=== PATIENT | female | born 1935 | race Caucasian/White ===

== ENCOUNTER 2019-03-19 17:23 | Inpatient (IN) | payer MEDICARE, OTHER, SELFPAY ==
[2019-03-19 17:24] VITALS: BP 135/75; PULSE 61; PULSE 66; RESP 16; TEMP 36.5; O2SAT 96; BMI 25.4
--- NOTE | 2019-03-19 18:28 | EKG12_ITS ---
Test Reason : DIZZINESS Blood Pressure : / mmHG Vent. Rate : 059 BPM Atrial Rate : 059 BPM P-R Int : 176 ms QRS Dur : 080 ms QT Int : 432 ms P-R-T Axes : 028 -14 059 degrees QTc Int : 427 ms Sinus bradycardia with Premature atrial complexes Otherwise normal ECG Confirmed by SHRUTHI MACHADO, GLENIS ([id number]), map editor DI FERGUSON ([id number]) on 03/21/2019 1:20:26 PM Referred By: KIMBERLEY/LINN Confirmed By:TONY HAWKINS MD
--- NOTE | 2019-03-19 18:40 | RAD_ITS ---
STUDY: X-RAY CHEST REASON FOR EXAM: Female, 83 years old. Dizziness TECHNIQUE: PA and lateral views of the chest COMPARISON: X-ray chest November 25, 2014 FINDINGS: The lungs are clear. There are no pleural effusions. There is no pneumothorax. The heart is normal in size. Moderate multilevel osteophytosis is present. RAD/Chest PA and Lateral IMPRESSION: No acute thoracic pathology. Electronically Signed: Felix Villar, at 18:54 EDT Tel , Service support ,
[2019-03-19 18:55] LABS: Absolute Lymphocyte Count 1.46 X10^3/uL (0.83-4.51); Absolute Neutrophil Count 5.7 X10^3/uL (2.0-7.7); Basophil# 0.08 X10^3/uL; Eosinophil# 0.23 X10^3/uL; Eosinophils% 2.8 % (0-5); Hematocrit 38.4 % (37-47); Hemoglobin 12.8 g/dL (12.0-15.0); Lymphocyte # 1.46 X10^3/ul (4.0); Lymphocyte % 17.7 % (19-41); Mean Corp Hgb Conc 33.3 g/dL (32-36); Mean Corpuscular Volume 89.9 fL (81-99); Mean Platelet Vol. 10.1 fl (6.2-12.0); Monocyte# 0.72 X10^3/uL; Monocyte% 8.7 % (0-10); NRBC Flagged by Analyzer 0 % (0-5); Neutrophil # 5.73 X10^3/uL (2.7-7.7); Neutrophil % 69.4 % (47-70); Platelet Count 209 K/mm3 (150-450); RBC Distribution Width CV 13.2 % (11.6-14.6); RBC Distribution Width SD 43.3 fl (35.1-43.9); Red Blood Count 4.27 M/mm3 (4.2-5.4); White Blood Count 8.3 K/mm3 (4.4-11.0)
--- NOTE | 2019-03-19 18:58 | ED.RN ---
NO OLD EKG
[2019-03-19 19:04] LABS: Partial Thromboplast Time 30.5 Seconds (24.1-36.2); Prothrombin Time (Protime)PT. 12.7 SECONDS (11.7-14.9)
[2019-03-19 19:09] LABS: Anion Gap 6 (5-15); BUN 21 mg/dL (7-18); BUN/Creat Ratio 10.8 RATIO (10-20); Calcium,Total 9.1 mg/dL (8.5-10.1); Chloride 111 mmol/L (98-107); Creatinine, Serum 1.95 mg/dL (0.55-1.02); EST Glomerular Filtration Rate 26 mL/min (>60); Est Glom Filt Rate - Afr Amer 32 mL/min (>60); Estimated Creatinine Clearance 17.59 ml/min; Glucose 102 mg/dL (74-106); Potassium 4.3 mmol/L (3.5-5.1); Sodium Level 139 mmol/L (136-145)
--- NOTE | 2019-03-19 20:00 | CT_ITS ---
STUDY: CT BRAIN WITHOUT CONTRAST REASON FOR EXAM: Female, 83 years old. weakness. RADIATION DOSAGE (If Supplied By Facility): CTDIvol = ( 44.99 ) mGy, DLP = ( 779.24 ) mGycm TECHNIQUE: Transaxial CT imaging of the brain was performed without administration of intravenous contrast material. Individualized dose optimization techniques were used for this CT. COMPARISON: 03/16/2017 FINDINGS: Normal soft tissue structures. Normal calvarium. There is mild cerebral atrophy with widening of the extra-axial spaces and ventricular dilatation. There are areas of decreased attenuation within the white matter tracts of the supratentorial brain, consistent with microvascular disease changes. Normal basal ganglia and thalami. Normal brainstem. There is mild cerebellar atrophy. There is no intracranial hemorrhage. There are no findings of an acute ischemic infarction. Normal visualized paranasal sinuses. CT/Brain/Head without Contrast IMPRESSION: No acute abnormality. Mild atrophy and White matter disease. Electronically Signed: Valdemar Lang MD at 20:41 EDT , Service support ,
--- NOTE | 2019-03-19 20:01 | ED.DCSUM_ITS ---
History of Present Illness Chief Complaint: Dizziness Narrative: Patient is an 83-year-old female who presents with dizziness. She describes this as feeling lightheaded and unsteady. She did not really feel off balance although she did have to hold onto things as she was worried she may fall. Symptoms began about 8 hours ago. She does not describe a sensation of room spinning or near syncope. No history of prior similar symptoms. No headaches. No weakness or speech difficulty. She denies any recent illness. No fevers cough chest pain shortness of breath abdominal pain vomiting diarrhea. She is treated for hypertension and has a history of bladder cancer which she is currently not requiring any treatment for. Past Medical History - Allergies and Home Meds Allergies/Adverse Reactions: Allergies No Known Allergies Allergy (Verified 03/16/17 19:39) Primary Care Physician: Kezia Duque MD [Primary Care Provider] - Past Medical History: - - Hypertension Surgical History: arthroscopy, knee - left, hysterectomy, - Smoking Status: Never smoker - Family History Maternal Family History: Reports: Cancer - Her mother of colon cancer Review of Systems All systems negative except as indicated General: Denies: Fever Cardiovascular: Denies: Chest pain Respiratory: Denies: Dyspnea Gastrointestinal: Denies: Nausea, Vomiting, Diarrhea Neurological: Reports: - - Dizziness. Denies: Headache, Weakness, Numbness Physical Exam Vital Signs/Narrative: Vital Signs Temp Pulse Resp BP Pulse Ox 03/19/19 17:24 97.7 F L 61 16 135/75 H 96 Inital Vital Signs reviewed: Yes General: Well nourished, Well developed Head: Normocephalic Eyes: EOMI ENT: Moist mucous membranes Neck: Supple Cardiovascular: Regular rate, Regular rhythm Respiratory: No distress, CTA bilaterally Abdomen: Soft, Nontender Extremities: Nontender Neurological: Alert, Oriented x3, - - NIHSS is 0, no focal or lateralizing neurological deficits normal strength normal sensation Psychological: Normal affect Diagnostic/Tx/Re-eval Impressions Chest X-Ray 03/19/19 18:40 IMPRESSION: No acute thoracic pathology. Electronically Signed: Felix Villar, at 18:54 EDT Tel , Service support , Brain CT 03/19/19 20:00 IMPRESSION: No acute abnormality. Mild atrophy and White matter disease. Electronically Signed: Valdemar Lang MD at 20:41 EDT , Service support , 03/19/19 18:40 Chest PA and Lateral [RAD] Stat 03/19/19 20:00 Brain/Head without Contrast [CT] Stat Laboratory Results 03/19/19 03/19/19 03/19/19 18:44 18:44 18:44 WBC 8.3 RBC 4.27 Hgb 12.8 Hct 38.4 MCV 89.9 MCH 30.0 MCHC 33.3 RDW Std Deviation 43.3 RDW Coeff of Karol 13.2 Plt Count 209 MPV 10.1 Immature Gran % (Auto) 0.400 Neut % (Auto) 69.4 Lymph % (Auto) 17.7 L [place] % (Auto) 8.7 Eos % (Auto) 2.8 Baso % (Auto) 1.0 Absolute Neuts (auto) 5.7 Absolute Lymphs (auto) 1.46 Nucleated RBC % 0 PT 12.7 INR 1.0 APTT 30.5 Sodium 139 Potassium 4.3 Chloride 111 H Carbon Dioxide 22.0 Anion Gap 6 BUN 21 H Creatinine 1.95 H Estim Creat Clear Calc 17.59 Est GFR (MDRD) Af Amer 32 L Est GFR (MDRD) Non-Af 26 L BUN/Creatinine Ratio 10.8 Glucose 102 Calcium 9.1 Troponin I Urine Color Urine Clarity Urine pH Ur Specific [place] Urine Protein Urine Glucose (UA) Urine Ketones Urine Occult Blood Urine Nitrite Urine Bilirubin Urine Urobilinogen Ur Leukocyte Esterase Urine RBC Urine WBC Ur Squamous Epith Cells Urine Bacteria Urine Mucus 03/19/19 03/19/19 18:44 20:40 WBC RBC Hgb Hct MCV MCH MCHC RDW Std Deviation RDW Coeff of Karol Plt Count MPV Immature Gran % (Auto) Neut % (Auto) Lymph % (Auto) [place] % (Auto) Eos % (Auto) Baso % (Auto) Absolute Neuts (auto) Absolute Lymphs (auto) Nucleated RBC % PT INR APTT Sodium Potassium Chloride Carbon Dioxide Anion Gap BUN Creatinine Estim Creat Clear Calc Est GFR (MDRD) Af Amer Est GFR (MDRD) Non-Af BUN/Creatinine Ratio Glucose Calcium Troponin I < 0.015 Urine Color Yellow Urine Clarity Clear Urine pH 6.5 Ur Specific [place] 1.010 Urine Protein Negative Urine Glucose (UA) Normal Urine Ketones Negative Urine Occult Blood 10 H Urine Nitrite Negative Urine Bilirubin Negative Urine Urobilinogen Normal Ur Leukocyte Esterase 500 H Urine RBC 0 SEEN Urine WBC 0-5 SEEN Ur Squamous Epith Cells 0-5 SEEN Urine Bacteria 0 SEEN Urine Mucus 0 SEEN - Medical Decision Making EKG shows sinus bradycardia at a rate of 59 with a PAC. Patient underwent the above work-up including CT of the head, chest x-ray, laboratory studies and urinalysis. This is all unremarkable. Given the patient's new symptoms of dizziness and difficulty with ambulation I do feel she needs to have further neurological work-up likely to include an MRI of the brain. Patient will be discussed with the hospitalist and admitted. ED Disposition - Plan for ED Patient: Disposition: Acute Care Hospital [facility] Diagnosis: Lightheaded, Impaired ambulation Referrals: Kezia Duque MD [Primary Care Provider] -
[2019-03-19 20:08] VITALS: BP 152/98; PULSE 62; RESP 17
[2019-03-19] MEDS: 0.9% Normal Saline 1,000 ML 999 ML IV (20:15)
[2019-03-19 20:47] LABS: Bacteria 0 SEEN /hpf (None Seen); Mucous, Urine 0 SEEN /hpf (<or=2+); Red Blood Cells-Urine 0 SEEN /hpf (0-5)
[2019-03-19 21:14] LABS: Color, Urine Yellow (Yellow); Glucose, Dipstick Normal (Normal); Ketone-Dipstick Negative (Negative); Leukocyte Esterase-Dipstick 500 /ul (Negative); Nitrite-Dipstick Negative (Negative); Occult Blood-Urine 10 /ul (Negative); Protein-Dipstick Negative (Negative); Urine Bilirubin Dipstick Negative (Negative); Urine Clarity Clear (Clear); Urine Urobilinogen Normal (Normal); Urine pH 6.5 (5.0 - 8.0)
[2019-03-19 21:38] LABS: Squamous Epithelial Cells - UA 0-5 SEEN /hpf (5-10); White Blood Cells 0-5 SEEN /hpf (0-5)
[2019-03-19 22:15] VITALS: BP 112/81; PULSE 63; RESP 15; O2SAT 94
[2019-03-20] VITALS (13 sets, daily range): BP systolic 116–147; BP diastolic 66–73; PULSE 54–70; RESP 12–17; TEMP 36.6–36.9; O2SAT 94–95; BMI 25.0
--- NOTE | 2019-03-20 00:48 | HP.PCM_ITS ---
Problem List (1) HTN (hypertension) Status: Chronic (2) Disequilibrium Status: Acute (3) Lightheaded Status: Acute (4) Acute renal failure Status: Inactive (5) Hypercalcemia Status: Inactive (6) Microscopic hematuria Status: Inactive (7) Normochromic normocytic anemia Status: Inactive (8) Bladder cancer Status: Inactive History of Present Illness Date of Admission: 03/19/19 Chief Complaint: dizziness The patient is a 83 year old F with a significant history of bladder cancer status post surgery; alcoholism now sober; and chronic kidney disease who presented to emergency department with 1 day history of dizziness. She describes her dizziness as a feeling of lightheadedness. Also she feels unsteady on her feet making it difficult for her to ambulate. Chest x-ray at the emergency department was unremarkable. Brain CT also did not show any acute pathology. Past Medical History Past Medical History (Chronic Problems): Chronic Problems HTN (hypertension) (Chronic) History of ETOH abuse (Chronic) Family hx of colon cancer (Chronic) History of sciatica (Chronic) Allergies No Known Allergies Allergy (Verified 03/16/17 19:39) Home Medications: Ambulatory Orders Medication Instructions Recorded Amlodipine [Norvasc] 10 mg PO DAILY #90 tablet 11/29/14 Folic Acid 0.5 mg PO DAILY@0800 #30 tablet 11/29/14 Metoprolol Tartrate [Lopressor 50 mg PO BID #90 tablet 11/29/14 (beta krzysztof)] Cholecalciferol (Vitamin D3) 5,000 unit PO DAILY 03/20/19 [Vitamin D3] Glucosamine HCl/Chondroitin [place] 1 ea PO DAILY 03/20/19 [Glucosamine-Chondroitin Cap] Thiamine Hydrochloride [Vitamin B1] 100 mg PO 4X/DAY 03/20/19 Surgical History: arthroscopy, knee - left, hysterectomy, - Psychiatric History: No pertinent psych hx GROUNDS/MAINTENANCE SPECIALIST History: No pertinent GROUNDS/MAINTENANCE SPECIALIST history Lives: Spouse/ Significant Other Smoking Status: Never smoker Alcohol: Sober - *Family History Maternal History Items: Cancer - Her mother of colon cancer Paternal History Items: - - Patient reports that his father from old age. Does not know any paternal medical history. Review of Systems Constitutional: Denies: Chills, Fever, Weight Change HEENT: Denies: Head Aches, Sinus Congestion, Sinus Drainage Cardiovascular: Reports: Light Headedness. Denies: Chest Pain, Palpitations Respiratory: Denies: Cough, Shortness of breath at rest, Sputum production Gastrointestinal: Denies: Abdominal Pain, Nausea, Vomiting Genitourinary: Denies: Dysuria Musculoskeletal: Denies: Joint Pain, Joint Tenderness Skin: Denies: Rash, Wounds Neurological: Reports: Incoordination. Denies: Focal weakness, Numbness, Tingling Psychiatric: Denies: Anxiety, Depression, Homicidal Ideations, Suicidal Ideations Hematologic/ Lymphatic: Denies: Easy Bruising, Easy Bleeding VTE Information - Inpt Only VTE Present on Admission: No VTE Mechan Device Prophylaxis: None VTE Pharm Prophylaxis ordered?: Yes Patient Problems: Active and Suspected Problems Lightheaded (Acute) Impaired ambulation (Acute) Disequilibrium (Acute) - Physical Exam Vitals/I&O's: Vital Signs Temp Pulse Resp BP Pulse Ox 98.5 F 56 L 14 143/70 H 95 03/20/19 00:07 03/20/19 00:07 03/20/19 00:07 03/20/19 00:11 03/20/19 00:07 Oxygen Delivery Method Room Air Weight: 61.9 kg Body Mass Index (BMI) 25.0 General: Alert, Oriented x3, Cooperative HEENT: Atraumatic, PERRLA, EOMI, Normocephalic Neck: Supple, No JVD, Negative Carotid Bruits Lungs: Clear to auscultation, Normal air movement Cardiovascular: Regular rate, No murmurs Abdomen: Bowel Sounds Present, Soft, Non Tender Extremities: No edema, Capillary Refill Less than 3 Seconds Skin: No rashes, No breakdown Musculoskeletal: No Tenderness to Palpation of Joints or Extremities Neurological: Cranial nerves II-XII grossly intact, Neuro grossly intact, Motor Exam 5/5 strength throughout, - - No dysmetria Psych/Mental Status: Normal Affect, Appropriate Laboratory Results 03/19/19 18:44: WBC 8.3, RBC 4.27, Hgb 12.8, Hct 38.4, MCV 89.9, MCH 30.0, MCHC 33.3, RDW Std Deviation 43.3, RDW Coeff of Karol 13.2, Plt Count 209, MPV 10.1, Immature Gran % (Auto) 0.400, Neut % (Auto) 69.4, Lymph % (Auto) 17.7 L, [place] % (Auto) 8.7, Eos % (Auto) 2.8, Baso % (Auto) 1.0, Absolute Neuts (auto) 5.7, Absolute Lymphs (auto) 1.46, Nucleated RBC % 0 03/19/19 18:44: PT 12.7, INR 1.0, APTT 30.5 03/19/19 18:44: Sodium 139, Potassium 4.3, Chloride 111 H, Carbon Dioxide 22.0, Anion Gap 6, BUN 21 H, Creatinine 1.95 H, Estim Creat Clear Calc 17.59, Est GFR (MDRD) Af Amer 32 L, Est GFR (MDRD) Non-Af 26 L, BUN/Creatinine Ratio 10.8, Glucose 102, Calcium 9.1 03/19/19 18:44: Troponin I < 0.015 03/19/19 20:40: Urine Color Yellow, Urine Clarity Clear, Urine pH 6.5, Ur Specific [place] 1.010, Urine Protein Negative, Urine Glucose (UA) Normal, Urine Ketones Negative, Urine Occult Blood 10 H, Urine Nitrite Negative, Urine Bilirubin Negative, Urine Urobilinogen Normal, Ur Leukocyte Esterase 500 H, Urine RBC 0 SEEN, Urine WBC 0-5 SEEN, Ur Squamous Epith Cells 0-5 SEEN, Urine Bacteria 0 SEEN, Urine Mucus 0 SEEN Current Medications Sodium Chloride () 1,000 mls @ 50 mls/hr IV .Q20H [facility] Assessment/Plan All Active Problems Lightheaded (Acute) Impaired ambulation (Acute) Disequilibrium (Acute) The patient is a 83 year old F with a significant history of bladder cancer status post surgery; alcoholism now sober; and chronic kidney disease who presented to emergency department with lightheadedness and disequilibrium . Lightheadedness and disequilibrium Brain CT imaging department was unremarkable. We will get an MRI of her brain; vitamin B12 and vitamin D levels. Patient has no urinary symptoms. However her urinalysis was abnormal. Urine culture was ordered emergency department; follow. PT and OT to work with patient. Hypertension On presentation her blood pressure was stable in regard to age Metoprolol and amlodipine continued Trend blood pressure and adjust blood pressure medication Hypertensive kidney disease Stable DVT prophylaxis Subcutaneous Lovenox Code Visit OBSV E&M: [id number] Initial observation care L3
--- NOTE | 2019-03-20 01:29 | MRI_ITS ---
We are attempting to reach an attending provider to discuss findings. An addendum with communication details will be sent when the communication is complete. STUDY: MRI BRAIN WITHOUT CONTRAST REASON FOR EXAM: Female, 83 years old. disequilibrium. TECHNIQUE: Standardized multiplanar fat and water weighted pulse sequences were obtained. COMPARISON: 03/19/2019 CT of the head FINDINGS: There is mild cerebral atrophy with widening of the extra-axial spaces and ventricular dilatation. There are multiple white matter hyperintensities, distributed throughout the deep white matter tracts of the cerebral hemispheres, consistent with moderate chronic white matter ischemic changes. There are multiple small foci of restricted diffusion with the most prominent foci measuring up to 1 cm at the right cerebellum. Right frontal, right parietal and occipital foci are also noted. Normal bilateral basal ganglia. Normal thalami. There is no extra-axial fluid accumulation. Normal flow voids within the major intracranial circulation suggesting patency by spin echo criteria. Normal sella turcica, pituitary gland, infundibular stalk, optic chiasm and hypothalamus. Normal tectal plate and pineal gland. Normal midbrain, jhonatan and medulla. Normal cerebellum. Normal basal cisterns. 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 Please consider embolic etiologies. Electronically Signed: Xenia Monk MD at 10:38 EDT Tel , Service support ,
[2019-03-20 09:04] LABS: Vitamin B12 376 pg/mL (211-911); Vitamin D,25 Hydroxy 77.6 ng/mL (29.95-100.01)
[2019-03-20] MEDS: Folic Acid 1 MG Tablet 0.5 MG PO (09:14)
[2019-03-20] MEDS: Metoprolol Tartrate 50 MG Tablet PO ×2 (09:15→21:19)
[2019-03-20] MEDS: amLODIPine 10 MG Tablet PO (09:16)
[2019-03-20] MEDS: Thiamine Hydrochloride 100 MG Tablet PO ×3 (09:16→21:18)
[2019-03-20] MEDS: Enoxaparin 30 MG/0.3 ML Syringe SC (09:17)
--- NOTE | 2019-03-20 10:45 | MRI_ITS ---
STUDY: MRA OF THE HEAD WITHOUT CONTRAST REASON FOR EXAM: Female, 83 years old. Stroke, dizziness. TECHNIQUE: 3-D [id number] (TOF) imaging was performed with MIPs. The study was performed unenhanced. COMPARISON: MRI of the brain dated March 20, 2019. Head CT dated March 19, 2019. FINDINGS: Normal bilateral petrous carotid arteries. Normal right cavernous carotid artery with a normal supraclinoid bifurcation. Normal left cavernous carotid artery with a normal supraclinoid bifurcation. Normal right A1 segments of the anterior cerebral artery. Normal left A1 segments of the anterior cerebral artery. Normal intact anterior communicating artery (ACOM). Normal bilateral A2 segments of the anterior cerebral arteries. Normal right M1 and M2 segments of the middle cerebral arteries, with a normal M1 bifurcation. Normal left M1 and M2 segments of the middle cerebral arteries, with a normal M1 bifurcation. There is a persistent origin of the right posterior cerebral artery with absence of the P1 segment of the right posterior cerebral artery. There is a persistent origin of the left posterior cerebral artery with absence of the P1 segment of the left posterior cerebral artery. There is a small atretic right vertebral artery with a dominant left vertebral artery. Normal basilar artery with a normal basilar bifurcation. The visualized bilateral superior cerebellar (SCA) arteries are normal. Normal bilateral P1, P2 and visualized P3 segments of the posterior cerebral arteries. There is no demonstrated aneurysm of the ken[place]ze of [place]. There is no major vessel occlusion or hemodynamically significant stenosis. The posterior inferior and anterior inferior cerebellar arteries are not visualized on this study perhaps due to their size, or not optimized technique or evaluation. MRI/MRA Head ONLY without Contrast IMPRESSION: Negative MRA of the major intracranial arteries of the brain. Electronically Signed: Jose Juan Lino MD at 17:05 EDT , Service support ,
--- NOTE | 2019-03-20 10:45 | MRI_ITS ---
STUDY: MRA NECK WITHOUT CONTRAST REASON FOR EXAM: Female, 83 years old. stroke,DIZZINESS TECHNIQUE: Source images were obtained, MIPs were performed. The study was performed unenhanced. COMPARISON: MRI of the brain dated March 20, 2019 FINDINGS: RIGHT CAROTID ARTERIES: Normal right common carotid artery (CCA). Normal right common carotid bulb. Normal origin of the right internal carotid (ICA) artery without a hemodynamically significant stenosis. Normal visualized cervical portion of the right internal carotid artery. Normal origin of the right external carotid artery (ECA). LEFT CAROTID ARTERIES: Normal left common carotid artery (CCA). There is tortuosity of the left common carotid bulb. 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 Additional signal abnormality in this region suggest the presence of atherosclerotic plaque. However no contrast was given and the findings cannot be excluded from artifact and motion. Further assessment of this region with carotid ultrasound is recommended to confirm or exclude the presence of an aneurysm and atherosclerotic plaque. Normal visualized cervical portion of the left internal carotid artery. Normal origin of the left external carotid artery (ECA). VERTEBRAL ARTERIES: There is antegrade flow within the bilateral vertebral arteries with a small right vertebral artery, and a dominant left vertebral artery. MRI/MRA Neck without Contrast IMPRESSION: 1. 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 Additional signal abnormality in this region suggest the presence of atherosclerotic plaque. 2. However no contrast was given and the findings cannot be excluded from artifact and motion. 3. Further assessment of this region with carotid ultrasound is recommended to confirm or exclude the presence of an aneurysm and atherosclerotic plaque. Electronically Signed: Jose Juan Lino MD at 17:17 EDT , Service support ,
--- NOTE | 2019-03-20 10:46 | ECHOD_ITS ---
Reason For Study: TIA/CVA Procedure This was a 2D Doppler, Color Flow transthoracic echocardiogram. Exam performed portable in patient room. Left Ventricle Normal LV size. The estimated ejection fraction is 55 %. Normal diastology for age. No regional wall motion abnormalities noted. Right Ventricle Normal RV size. Normal systolic function. Atria The left atrium is mildly enlarged. Normal right atrium. No doppler evidence for ASD. Bubble contrast study negative for right to left interatrial shunt. Mitral Valve There is moderate mitral annular calcification. There is no mitral valve stenosis. Mild (1+) mitral valve insufficiency. Tricuspid Valve There is no tricuspid stenosis. Trivial tricuspid valve insufficiency. Pulmonary artery systolic pressure is 50 mmHg. Aortic Valve Aortic sclerosis, no stenosis. There is no aortic stenosis. Trivial aortic valve insufficiency. Pulmonic Valve There is no pulmonic valvular stenosis. Trivial pulmonic valve insufficiency. Great Vessels Normal aortic root. Pericardium/Pleural No pericardial effusion. Medication Performed a rapid injection of agitated mix of 9 cc saline and 1cc air to assess for atrial septal defect. MMode/2D Measurements & Calculations LVIDd: 4.4 cm IVSd: 0.98 cm Ao root diam: 3.2 cm LVIDs: 2.9 cm LVPWd: 1.1 cm RVDd: 3.9 cm FS: 34.3 % LAV(MOD-bp): 70.8 ml LVAd ap4: 22.5 cm2 SV(MOD-sp4): 39.3 ml LAV(MOD-bp) Indexed: 43.6 ml/m2 EDV(MOD-sp4): 67.6 ml LAV(MOD-sp2): 73.3 ml EDV(sp4-el): 70.0 ml LAV(MOD-sp4): 65.0 ml LVAs ap4: 13.1 cm2 ESV(MOD-sp4): 28.3 ml ESV(sp4-el): 29.2 ml EF(MOD-sp4): 58.2 % EF(sp4-el): 58.3 % SV(sp4-el): 40.8 ml LA A4 area: 22.3 cm2 LA dimension(2D): 4.0 cm RA A4 area: 16.3 cm2 Time Measurements MV dec time: 0.28 sec Doppler Measurements & Calculations MV E max tc: 104.7 cm/sec Lat Peak E' Tc: 9.9 cm/sec Med Peak E' Tc: 6.5 cm/sec MV A max tc: 111.7 cm/sec E/E' lat: 10.6 E/E' med: 16.2 MV E/A: 0.94 Ao V2 max: 164.0 cm/sec LV V1 max: 98.8 cm/sec PA V2 max: 111.0 cm/sec Ao max P.8 mmHg LV V1 max P.9 mmHg TR max tc: 340.1 cm/sec TR max P.3 mmHg Interpretation Summary The estimated ejection fraction is 55 %. The left atrium is mildly enlarged. Bubble contrast study negative for right to left interatrial shunt. Pulmonary artery systolic pressure is 50 mmHg. Aortic sclerosis, no stenosis. Mild (1+) mitral valve insufficiency. Ordering Physician: Elvis Burton Referring Physician: PATRICE TONY Performed By: Chantell Whitfield RDCS
[2019-03-20 11:21] LABS: Thyroid Stim Hormone (TSH) 4.32 uIU/mL (0.358-3.74)
[2019-03-20] MEDS: 0.9% Normal Saline 1,000 ML 75 ML IV (12:41)
[2019-03-20] MEDS: Aspirin 81 MG TAB.CHEW PO (12:45)
[2019-03-20] MEDS: Clopidogrel Bisulfate 75 MG Tablet PO (12:46)
--- NOTE | 2019-03-20 14:31 | PN_ITS ---
Patient Problems: Active and Suspected Problems Lightheaded (Acute) Impaired ambulation (Acute) Disequilibrium (Acute) Subjective: Patient was admitted with blurry vision, disequilibrium, loss of balance more leaning on the right side. Patient does not have a history of arrhythmia or chronic A. fib. Denies dysphagia, dysarthria, slurred speech or language abnormality. NIH stroke scale 0. Radiologist called me for positive brain MRI of multiple small foci of acute cerebral and cerebellar infarctions, consider embolic etiologies. MRA brain, MRA head, echo, order set for stroke including neurology consult ordered Clinical Impression(s) from Imaging Studies Chest X-Ray 03/19/19 18:40 IMPRESSION: No acute thoracic pathology. Electronically Signed: Felix Villar, at 18:54 EDT Tel , Service support , Brain CT 03/19/19 20:00 IMPRESSION: No acute abnormality. Mild atrophy and White matter disease. Electronically Signed: Valdemar Lang MD at 20:41 EDT , Service support , Brain MRI 03/20/19 01:29 IMPRESSION: Multiple small foci of acute cerebral and cerebellar infarctions. Please consider embolic etiologies. Vitals/I&O's: Vital Signs Temp Pulse Resp BP Pulse Ox 97.9 F 54 L 17 116/66 94 03/20/19 12:56 03/20/19 12:56 03/20/19 12:56 03/20/19 12:56 03/20/19 12:56 Oxygen Delivery Method Room Air Weight: 136 lb 7.458 oz Body Mass Index (BMI) 25.0 Intake and Output for Last 24 Hours 03/18/19 03/19/19 03/20/19 23:59 23:59 23:59 Intake Total 1000 / 1000 675 / 675 Balance 1000 / 1000 675 / 675 General: Alert, Oriented x3, Cooperative HEENT: Atraumatic, PERRLA, EOMI, Normocephalic Neck: Supple, No JVD, Negative Carotid Bruits Lungs: Clear to auscultation, Normal air movement, No rhonchi, No wheeze, No rales Cardiovascular: Regular rate, Regular Rhythm, Normal S1, Normal S2, No murmurs Abdomen: Bowel Sounds Present, Soft, Non Tender, Non-Distended Extremities: No edema, Capillary Refill Less than 3 Seconds Skin: No rashes, No breakdown Musculoskeletal: No Tenderness to Palpation of Joints or Extremities, Arthritic Changes Neurological: Cranial nerves II-XII grossly intact, Deep Tendon Reflexes 2+/4 and Symmetrical, Neuro grossly intact, Motor Exam 5/5 strength throughout, - - NIH stroke scale 0 Cerebellar signs of [id number] and [id number] test are negative. Visual field intact on one-to-one confrontation test Psych/Mental Status: Normal Affect, Appropriate Microbiology Past 72 Hours 03/19/19 20:40 Urine, Clean Catch Urine Culture - Preliminary Culture exhibits no growth. Laboratory Results 03/19/19 18:44: WBC 8.3, RBC 4.27, Hgb 12.8, Hct 38.4, MCV 89.9, MCH 30.0, MCHC 33.3, RDW Std Deviation 43.3, RDW Coeff of Karol 13.2, Plt Count 209, MPV 10.1, Immature Gran % (Auto) 0.400, Neut % (Auto) 69.4, Lymph % (Auto) 17.7 L, Mcminn % (Auto) 8.7, Eos % (Auto) 2.8, Baso % (Auto) 1.0, Absolute Neuts (auto) 5.7, Absolute Lymphs (auto) 1.46, Nucleated RBC % 0 03/19/19 18:44: PT 12.7, INR 1.0, APTT 30.5 03/19/19 18:44: Sodium 139, Potassium 4.3, Chloride 111 H, Carbon Dioxide 22.0, Anion Gap 6, BUN 21 H, Creatinine 1.95 H, Estim Creat Clear Calc 17.59, Est GFR (MDRD) Af Amer 32 L, Est GFR (MDRD) Non-Af 26 L, BUN/Creatinine Ratio 10.8, Glucose 102, Calcium 9.1 03/19/19 18:44: Troponin I < 0.015 03/19/19 20:40: Urine Color Yellow, Urine Clarity Clear, Urine pH 6.5, Ur Specific [place] 1.010, Urine Protein Negative, Urine Glucose (UA) Normal, Urine Ketones Negative, Urine Occult Blood 10 H, Urine Nitrite Negative, Urine Bilirubin Negative, Urine Urobilinogen Normal, Ur Leukocyte Esterase 500 H, Urine RBC 0 SEEN, Urine WBC 0-5 SEEN, Ur Squamous Epith Cells 0-5 SEEN, Urine Bacteria 0 SEEN, Urine Mucus 0 SEEN 03/20/19 06:25: Vitamin B12 376, Vitamin D 25-Hydroxy 77.6 03/20/19 06:25: TSH 4.32 H Current Medications Acetaminophen (Tylenol) 650 mg PO Q6H PRN PRN PRN Reason: Pain Score 1-3/Temp > 100.7 F Amlodipine Besylate (Norvasc) 10 mg PO DAILY [facility] Last Admin: 03/20/19 09:16 Dose: 10 mg Documented by: Aspirin (Aspirin, Baby) 81 mg PO DAILY@0800 [facility] Last Admin: 03/20/19 12:45 Dose: 81 mg Documented by: Atorvastatin Calcium (Lipitor) 80 mg PO QHS [facility] Cholecalciferol (Vitamin D) 5,000 unit PO DAILY [facility] Last Admin: 03/20/19 09:15 Dose: 5,000 unit Documented by: Clopidogrel Bisulfate (Plavix) 75 mg PO DAILY [facility] Last Admin: 03/20/19 12:46 Dose: 75 mg Documented by: Dextrose (D50w Syringe) 0 gm IV X1 PRN; Protocol PRN Reason: Hypoglycemia Enoxaparin Sodium (Lovenox) 30 mg SC DAILY@1000 [facility] Last Admin: 03/20/19 09:17 Dose: 30 mg Documented by: Folic Acid (Folic Acid) 0.5 mg PO DAILY@0800 [facility] Last Admin: 03/20/19 09:14 Dose: 0.5 mg Documented by: Glucagon () 1 mg IM .X1 PRN PRN Reason: Hypoglycemia Sodium Chloride () 1,000 mls @ 75 mls/hr IV .[id number] [facility] Stop: 03/21/19 00:04 Last Admin: 03/20/19 12:41 Dose: 75 mls/hr Documented by: Metoprolol Tartrate (Lopressor (Beta Ervin)) 50 mg PO BID [facility] Last Admin: 03/20/19 09:15 Dose: 50 mg Documented by: Thiamine HCl (Vitamin B1) 100 mg PO 4X/DAY [facility] Last Admin: 03/20/19 09:16 Dose: 100 mg Documented by: STROKE Vital Signs/Narrative: Vital Signs Temp Pulse Resp BP Pulse Ox 03/20/19 12:56 97.9 F 54 L 17 116/66 94 03/20/19 11:08 58 L Medical Necessity - Tobacco Use Smoking Status: Never smoker Assessment/Plan All Active Problems Lightheaded (Acute) Impaired ambulation (Acute) Disequilibrium (Acute) The patient is a 83 year old F with a significant history of bladder cancer status post surgery; alcoholism now sober; and chronic kidney disease who presented to emergency department with lightheadedness and disequilibrium . 1. 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 MRA head and neck, neurologist consult, PT, OT and speech/swallow evaluation ordered. On aspirin, Plavix and statin. B12 376, vitamin D 25- hydroxy 77. TSH 4.32. Free T4 ordered. UA is negative, leukocyte esterase 500. Urine culture no growth. 2. Hypertension On presentation her blood pressure was stable in regard to age Metoprolol and amlodipine continued Trend blood pressure and adjust blood pressure medication 3. Hypertensive kidney disease, CKD stage IV Stable. Creatinine is 1.95. In the past creatinine have been about 3.5, last 25 November 2014 2.9. BUN 21. 4.DVT prophylaxis Subcutaneous Lovenox Microbiology Past 72 Hours 03/19/19 20:40 Urine, Clean Catch Urine Culture - Preliminary Culture exhibits no growth. Laboratory Results 03/19/19 18:44: WBC 8.3, RBC 4.27, Hgb 12.8, Hct 38.4, MCV 89.9, MCH 30.0, MCHC 33.3, RDW Std Deviation 43.3, RDW Coeff of Karol 13.2, Plt Count 209, MPV 10.1, Im mature Gran % (Auto) 0.400, Neut % (Auto) 69.4, Lymph % (Auto) 17.7 L, Mcminn % (Auto) 8.7, Eos % (Auto) 2.8, Baso % (Auto) 1.0, Absolute Neuts (auto) 5.7, Absolute Lymphs (auto) 1.46, Nucleated RBC % 0 03/19/19 18:44: PT 12.7, INR 1.0, APTT 30.5 03/19/19 18:44: Sodium 139, Potassium 4.3, Chloride 111 H, Carbon Dioxide 22.0, Anion Gap 6, BUN 21 H, Creatinine 1.95 H, Estim Creat Clear Calc 17.59, Est GFR (MDRD) Af Amer 32 L, Est GFR (MDRD) Non-Af 26 L, BUN/Creatinine Ratio 10.8, Glucose 102, Calcium 9.1 03/19/19 18:44: Troponin I < 0.015 03/19/19 20:40: Urine Color Yellow, Urine Clarity Clear, Urine pH 6.5, Ur Specific [place] 1.010, Urine Protein Negative, Urine Glucose (UA) Normal, Urine Ketones Negative, Urine Occult Blood 10 H, Urine Nitrite Negative, Urine Bilirubin Negative, Urine Urobilinogen Normal, Ur Leukocyte Esterase 500 H, Urine RBC 0 SEEN, Urine WBC 0-5 SEEN, Ur Squamous Epith Cells 0-5 SEEN, Urine Bacteria 0 SEEN, Urine Mucus 0 SEEN 03/20/19 06:25: Vitamin B12 376, Vitamin D 25-Hydroxy 77.6 03/20/19 06:25: TSH 4.32 H Clinical Impression(s) from Imaging Studies Chest X-Ray 03/19/19 18:40 IMPRESSION: No acute thoracic pathology. Brain CT 03/19/19 20:00 IMPRESSION: No acute abnormality. Mild atrophy and White matter disease. Brain MRI 03/20/19 01:29
--- NOTE | 2019-03-20 16:09 | CHAPLAIN ---
patient was out of the room; family member was in room and talking on the phone; was not able to complete a visit
[2019-03-20] MEDS: Cyanocobalamin 500 MCG Tablet 1000 MCG PO (17:01)
[2019-03-20] MEDS: Atorvastatin Calcium 80 MG Tablet PO (21:22)
[2019-03-21] VITALS (8 sets, daily range): BP systolic 119–148; BP diastolic 65–85; PULSE 56–63; RESP 14–18; TEMP 36.6–36.9; O2SAT 95–100
[2019-03-21 07:34] LABS: Cholesterol 153 mg/dL (200); High Density Lipoprotein 58 mg/dL; T4 Free Direct 1.22 ng/dL (0.76-1.46); Triglycerides 96 mg/dL; Very Low Density Lipoprotein 19 mg/dL (5-40)
[2019-03-21] MEDS: Cyanocobalamin 500 MCG Tablet 1000 MCG PO (09:02)
[2019-03-21] MEDS: Aspirin 81 MG TAB.CHEW PO (09:02)
[2019-03-21] MEDS: Folic Acid 1 MG Tablet 0.5 MG PO (09:03)
[2019-03-21] MEDS: Metoprolol Tartrate 50 MG Tablet PO (09:07)
[2019-03-21] MEDS: Enoxaparin 30 MG/0.3 ML Syringe SC (09:07)
[2019-03-21] MEDS: amLODIPine 10 MG Tablet PO (09:08)
[2019-03-21] MEDS: Clopidogrel Bisulfate 75 MG Tablet PO (09:08)
[2019-03-21] MEDS: Thiamine Hydrochloride 100 MG Tablet PO ×2 (09:08→14:02)
--- NOTE | 2019-03-21 10:53 | CASEMGMT ---
VERONICA FOSTER assessment: Face to Face with patient for initial transition planning/care coordination assessment. VERONICA FOSTER introduced self and role at [facility], pt voices understanding and consents to assessment at this time. Pt is sitting up in chair in no distress at this time. Pt is A/Ox4 at this time and answers all questions appropriately at this time. Care providers, pharmacy, and demographics verified/updated at this time. PCP: [facility]: [facility]acy: [facility] Insurance: [facility] A/B, Center[facility] Prescription Benefit: Self pay and pt states no concerns at this time. Living Will/HPOA: Pt states that she does have LW/HPOA and is aware that they are no on file at [facility] at this time. Pt states her , Mark Hussein, is HPOA. LNOK: Mark Hussein, ; Carline Braun, daughter Living Arrangements: Pt states lives with in 1 story home with washer/dryer in the basement and states no concerns at home at this time. Pt/family state that they are working on getting W/D set up on the 1st floor. Pt states is normally independent with ADL's. Transportation: Pt states drives self or drives and states no transportation concerns at this time. DME/HHC: Pt states has the following DME: cane, walker, grab bars, and shower bench. Pt states does not use the cane/walker and states no need for any further DME at this time. Pt states no hx of HHC in the past but states has been to [facility] s/p surgery for rehab. Pt states no need for further therapy at this time. Pt states no concerns with going home at time of discharge. Pt states is retired. Pt states does not smoke or drink ETOH. Pt states no further concerns/needs at this time. CM to follow for any further discharge planning/needs. Advised pt to ask for CM if any further questions/concerns/needs arise, voices understanding. Pt Goal: Home Plan[place] VERONICA FOSTER
--- NOTE | 2019-03-21 10:54 | CDU_ITS ---
Reason For Study: Left ICA aneurysm/stenosis Rt. Velocities/BP Lt. Velocities/BP Prox CCA 76/14.7 cm/sec. Prox CCA 79/12.6 cm/sec. Mid CCA 49.9/13.4 cm/sec. Mid CCA 67.9/11.4 cm/sec. Dist CCA 60.7/6.9 cm/sec. Dist CCA 46.5/12.4 cm/sec. Prox ICA 30.5/9.7 cm/sec. Prox ICA 53.1/14.6 cm/sec. Mid ICA 51.3/15.4 cm/sec. Mid ICA 62.9/13.5 cm/sec. Dist ICA 72.8/17.6 cm/sec. Dist ICA 56.4/17.9 cm/sec. Rt. ICA/CCA = 1.2. Lt. ICA/CCA = 0.93. Prox ECA 75/10.2 cm/sec. Prox ECA 65.1/4.7 cm/sec. Rt. Vert. 41.9/9.7 cm/sec. Lt. Vert. 70.7/12.4 cm/sec. Right Extracranial There is homogeneous, smooth atherosclerotic plaque noted in the right common carotid artery. There is heterogeneous, smooth atherosclerotic plaque noted in the right internal carotid artery. There is intimal thickening but no significant atherosclerotic plaque noted in the right external carotid artery. Antegrade flow is noted in the right vertebral artery. Left Extracranial There is intimal thickening but no significant atherosclerotic plaque noted in the left common carotid artery. There is heterogeneous, irregular atherosclerotic plaque noted in the left internal carotid artery. There is intimal thickening but no significant atherosclerotic plaque noted in the left external carotid artery. Antegrade flow is noted in the left vertebral artery. Procedure Carotid Duplex [id number]. Exam performed portable in patient room. Interpretation Summary Smooth plague at the proximal right internal carotid with <50% stenosis. 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 Calcific plague with shadowing left proximal internal carotid with <50% stenosis <50% stenosis left external carotid Patent, antegrade, <50% stenosis bilateral vertebrals Ordering Physician: Elvis Burton Referring Physician: Kezia Duque M.D. Performed By: Bri Perez RVT
--- NOTE | 2019-03-21 11:22 | CASEMGMT ---
SW completed PHQ-9 w/pt, no indication of depression at this time. BIJU Barksdale
--- NOTE | 2019-03-21 11:56 | PCM.CONS.GEN ---
Reason for Consult Date of Consultation: 03/21/19 Reason for Consultation: cva History of Present Illness: The patient is a 83 year old F presents as below, reports improved now, suboptimal historian but does report she feels better, cannot clearly tell me she is back to normal. only symptom she can describe is unsteadiness per admit note:The patient is a 83 year old F with a significant history of bladder cancer status post surgery; alcoholism now sober; and chronic kidney disease who presented to emergency department with 1 day history of dizziness. She describes her dizziness as a feeling of lightheadedness. Also she feels unsteady on her feet making it difficult for her to ambulate. Chest x-ray at the emergency department was unremarkable. Brain CT also did not show any acute pathology. Past Medical History Past Medical History (Chronic Problems): Chronic Problems HTN (hypertension) (Chronic) History of ETOH abuse (Chronic) Family hx of colon cancer (Chronic) History of sciatica (Chronic) Allergies No Known Allergies Allergy (Verified 03/16/17 19:39) Home Medications: Ambulatory Orders Medication Instructions Recorded Amlodipine [Norvasc] 10 mg PO DAILY #90 tablet 11/29/14 Folic Acid 0.5 mg PO DAILY@0800 #30 tablet 11/29/14 Metoprolol Tartrate [Lopressor 50 mg PO BID #90 tablet 11/29/14 (beta ervin)] Cholecalciferol (Vitamin D3) 5,000 unit PO DAILY 03/20/19 [Vitamin D3] Glucosamine HCl/Chondroitin Sandoval 1 ea PO DAILY 03/20/19 [Glucosamine-Chondroitin Cap] Thiamine Hydrochloride [Vitamin B1] 100 mg PO 4X/DAY 03/20/19 Surgical History: arthroscopy, knee - left, hysterectomy, - Psychiatric History: No pertinent psych hx RADIATION ONCOLOGY THERAPIST History: No pertinent RADIATION ONCOLOGY THERAPIST history Lives: Spouse/ Significant Other Smoking Status: Never smoker Alcohol: Sober - stopped drinking 10yrs - *Family History Paternal History Items: - - Patient reports that his father from old age. Does not know any paternal medical history. Maternal History Items: Cancer - Her mother of colon cancer Review of Systems Constitutional: Denies: Chills, Fever, Weight Change HEENT: Denies: Head Aches, Sinus Congestion, Sinus Drainage Cardiovascular: Denies: Chest Pain, Palpitations Respiratory: Denies: Cough, Shortness of breath at rest, Sputum production Gastrointestinal: Denies: Abdominal Pain, Nausea, Vomiting Genitourinary: Denies: Dysuria Musculoskeletal: Denies: Joint Pain, Joint Tenderness Skin: Denies: Rash, Wounds Neurological: Reports: Balance problems. Denies: Focal weakness, Numbness, Tingling Psychiatric: Denies: Anxiety, Depression, Homicidal Ideations, Suicidal Ideations Hematologic/ Lymphatic: Denies: Easy Bruising, Easy Bleeding Patient Problems: Active and Suspected Problems Lightheaded (Acute) Impaired ambulation (Acute) Disequilibrium (Acute) - Physical Exam Vitals/I&O's: Vital Signs Temp Pulse Resp BP Pulse Ox 36.8 C 62 14 119/65 100 03/21/19 09:09 03/21/19 09:29 03/21/19 09:09 03/21/19 09:09 03/21/19 09:09 Oxygen Delivery Method Room Air Weight: 61.9 kg Body Mass Index (BMI) 25.0 Intake and Output for Last 24 Hours 03/19/19 03/20/19 03/21/19 23:59 23:59 23:59 Intake Total 1000 / 1000 1425 / 1525 1580 / 1580 Balance 1000 / 1000 1425 / 1525 1580 / 1580 General: Alert, Oriented x3, Cooperative HEENT: Atraumatic, PERRLA, EOMI, Normocephalic Neck: Supple, No JVD, Negative Carotid Bruits Lungs: Clear to auscultation, Normal air movement Cardiovascular: Regular rate, No murmurs Abdomen: Bowel Sounds Present, Soft, Non Tender Extremities: No edema, Capillary Refill Less than 3 Seconds Skin: No rashes, No breakdown Musculoskeletal: No Tenderness to Palpation of Joints or Extremities Neurological: Cranial nerves II-XII grossly intact Psych/Mental Status: Normal Affect, Appropriate Microbiology Past 72 Hours 03/19/19 20:40 Urine, Clean Catch Urine Culture - Final Mixed Gram Positive Organisms Laboratory Results 03/21/19 06:25: Triglycerides 96, Cholesterol 153, LDL Cholesterol 76, VLDL Cholesterol 19, HDL Cholesterol 58, Free T4 1.22 Current Medications Acetaminophen (Tylenol) 650 mg PO Q6H PRN PRN PRN Reason: Pain Score 1-3/Temp > 100.7 F Amlodipine Besylate (Norvasc) 10 mg PO DAILY [facility] Last Admin: 03/21/19 09:08 Dose: 10 mg Documented by: Aspirin (Aspirin, Baby) 81 mg PO DAILY@0800 [facility] Last Admin: 03/21/19 09:02 Dose: 81 mg Documented by: Atorvastatin Calcium (Lipitor) 80 mg PO QHS [facility] Last Admin: 03/20/19 21:22 Dose: 80 mg Documented by: Cholecalciferol (Vitamin D) 5,000 unit PO DAILY [facility] Last Admin: 03/21/19 09:08 Dose: 5,000 unit Documented by: Clopidogrel Bisulfate (Plavix) 75 mg PO DAILY [facility] Last Admin: 03/21/19 09:08 Dose: 75 mg Documented by: Cyanocobalamin (Vitamin B12) 1,000 mcg PO DAILY@0800 [facility] Last Admin: 03/21/19 09:02 Dose: 1,000 mcg Documented by: Dextrose (D50w Syringe) 0 gm IV X1 PRN; Protocol PRN Reason: Hypoglycemia Enoxaparin Sodium (Lovenox) 30 mg SC DAILY@1000 [facility] Last Admin: 03/21/19 09:07 Dose: 30 mg Documented by: Folic Acid (Folic Acid) 0.5 mg PO DAILY@0800 [facility] Last Admin: 03/21/19 09:03 Dose: 0.5 mg Documented by: Glucagon () 1 mg IM .X1 PRN PRN Reason: Hypoglycemia Metoprolol Tartrate (Lopressor (Beta Ervin)) 50 mg PO BID [facility] Last Admin: 03/21/19 09:07 Dose: 50 mg Documented by: Thiamine HCl (Vitamin B1) 100 mg PO 4X/DAY [facility] Last Admin: 03/21/19 09:08 Dose: 100 mg Documented by: Assessment/Plan All Active Problems Lightheaded (Acute) Impaired ambulation (Acute) Disequilibrium (Acute) acute embolic cva, mult vascular distibutions: recommend anticoagulation OR outpt event monitor, asa/statin, bp control, await echo results, pt/ot/sp dc home if above negative and ambulating safely
--- NOTE | 2019-03-21 14:46 | DCINST_ITS ---
- Discharge Diagnoses Current Active Problems: Current Active and Chronic Problems Lightheaded (Acute) Impaired ambulation (Acute) HTN (hypertension) (Chronic) Disequilibrium (Acute) You will use the following diet at home:: Cardiac Your food should be the consistency of: Regular Discharge Activity: May Not Drive Call your doctor if you observe: Fever of 101 or Higher, Numbness or Tingling, Inability to urinate, Inability to have a bowel movement, Shortness of breath, Dizziness, Fainting spells, Swelling in the ankles, Chest pain, Prolonged hiccoughing, Increased palpitations (irregular heartbeat), Calf discomfort, Uncontrolled pain Additional Instructions: 30 days event monitor. Follow-up with instructor adjunct surgical technician, Dr. Sher for event monitor. Do ambulatory for now and 30 days event monitor on 2018 Allergies/Adverse Reactions: Allergies No Known Allergies Allergy (Verified 03/16/17 19:39) Medications to take at Discharge Amlodipine [Norvasc] 10 mg PO DAILY #90 tablet 11/29/14 Folic Acid 0.5 mg PO DAILY@0800 #30 tablet 11/29/14 Metoprolol Tartrate [Lopressor (beta krzysztof)] 50 mg PO BID #90 tablet 11/29/14 Cholecalciferol (Vitamin D3) [Vitamin D3] 5,000 unit PO DAILY 03/20/19 Glucosamine HCl/Chondroitin Sandoval [Glucosamine-Chondroitin Cap] 1 ea PO DAILY 03/20/19 Thiamine Hydrochloride [Vitamin B1] 100 mg PO 4X/DAY 03/20/19 Aspirin [Aspirin, Baby] 81 mg PO DAILY@0800 #30 tab.chew 03/21/19 Atorvastatin Calcium 20 mg PO DAILY #30 tab 03/21/19 Clopidogrel Bisulfate [Plavix] 75 mg PO DAILY #30 tab 03/21/19 Cyanocobalamin [Vitamin B12] 1,000 mcg PO DAILY@0800 #60 tab 03/21/19 The following prescriptions were given: Aspirin [Aspirin, Baby] 81 mg PO DAILY@0800 #30 tab.chew Transmission Status: Sent to [facility] #30 Atorvastatin Calcium 20 mg PO DAILY #30 tab Transmission Status: Pending to [facility] #30 Clopidogrel Bisulfate [Plavix] 75 mg PO DAILY #30 tab Transmission Status: Sent to [facility] #30 Cyanocobalamin [Vitamin B12] 1,000 mcg PO DAILY@0800 #60 tab Transmission Status: Pending to [facility] #30 Primary Care Physician: Kezia Duque MD [Primary Care Provider] - Please follow up with your Primary Care Physician in: in 2 week Test Results: Test results from this visit will be discussed in further detail at your follow- up appointment, if applicable. Please Follow Up With: Bubba Jarvis MD When: in 4 weeks
--- NOTE | 2019-03-21 14:50 | PCM.DC.SUM ---
Discharge Date and Diagnosis - Problem List Patient Problems: Active and Suspected Problems Lightheaded (Acute) Impaired ambulation (Acute) Disequilibrium (Acute) Date of Admission: 03/19/19 Date of Discharge: 03/21/19 - Primary Discharge Diagnosis Active and Suspected Problems Lightheaded (Acute) Impaired ambulation (Acute) Disequilibrium (Acute) - Secondary Discharge Diagnosis Chronic Problems HTN (hypertension) (Chronic) History of ETOH abuse (Chronic) Family hx of colon cancer (Chronic) History of sciatica (Chronic) Hospital Course and Treatment Operations: - - Resection of bladder tumor. Summary of Care Provided: [] The patient is a 83 year old F with a significant history of bladder cancer status post surgery; alcoholism now sober; and chronic kidney disease who presented to emergency department with lightheadedness and disequilibrium . 1. 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 Echo was done reported EF 55% with normal diastole for age. Left atrium mildly enlarged. Bubble contrast study negative. No Doppler evidence of ASD. Mild MR. Trivial TR, RVSP 50 mmHg. No aortic stenosis. Neck MRI reported abnormal aneurysmal dilatation and proximal left ICA measuring up to 9.4 mm. Possible atherosclerotic plaque. Negative MRA of head. Artery Doppler further ordered. Patient seen by neurologist and recommended 30-day event monitor or anticoagulation. Discussed with the family member, daughter and granddaughter about the diagnosis and concern of possible embolic stroke. block hacker shows sinus bradycardia at 60 bpm with occasional PACs and pulses bigeminy. EKG sinus bradycardia with PAC. No electric evidence of A. fib on monitor or EKG. Of about all the pros and cons of anticoagulation, and they opted for a 30-day event monitor. Patient is being discharged on dual antiplatelet agent aspirin and Plavix. Plavix for 30 days and aspirin indefinitely unless bleeding complication occurs. Lipid profile is normal, LDL 76, HDL 58. For sake of atherosclerotic plaque in MRA, patient started on Lipitor 20 mg daily. PT OT and speech medicine done. Recommended discharge home. B12 376, vitamin D 25-hydroxy 77. TSH 4.32. Free T4 1.22 UA is negative, leukocyte esterase 500. Urine culture no growth. His prescription for aspirin, Plavix, cyanocobalamin, Lipitor sent to patient's pharmacy. 30-day event monitor ordered. Follow with Dr. pabon. 2. Hypertension On presentation her blood pressure was stable in regard to age Metoprolol and amlodipine continued Trend blood pressure and adjust blood pressure medication 3. Hypertensive kidney disease, CKD stage IV Stable. Creatinine is 1.95. In the past creatinine have been about 3.5, last 25 November 2014 2.9. BUN 21. 4.DVT prophylaxis Subcutaneous Lovenox Discharge medication reconciliation done. Discharge follow-up instructions completed. Discharge process discussed with the patient and all questions were answered to patient's satisfaction. Follow with PCP in 1 to 2 weeks. Follow-up neurologist Dr. Jarvis in 4 weeks. Total time spent, exact 35 minutes on discharge meds reconciliation, examination, review of imaging and blood test and discussion with the patient on follow-up instructions. Patient Problems: Active and Suspected Problems Lightheaded (Acute) Impaired ambulation (Acute) Disequilibrium (Acute) - Physical Exam Vitals/I&O's: Vital Signs Temp Pulse Resp BP Pulse Ox 98.1 F 62 16 121/69 H 97 03/21/19 13:00 03/21/19 13:00 03/21/19 13:00 03/21/19 13:00 03/21/19 13:00 Oxygen Delivery Method Room Air Weight: 136 lb 7.458 oz Body Mass Index (BMI) 25.0 Intake and Output for Last 24 Hours 03/19/19 03/20/19 03/21/19 23:59 23:59 23:59 Intake Total 1000 / 1000 1425 / 1525 1580 / 1580 Balance 1000 / 1000 1425 / 1525 1580 / 1580 General: Alert, Oriented x3, Cooperative HEENT: Atraumatic, PERRLA, EOMI, Normocephalic Neck: Supple, No JVD, Negative Carotid Bruits Lungs: Clear to auscultation, Normal air movement, No rhonchi, No wheeze, No rales Cardiovascular: Regular rate, Regular Rhythm, Normal S1, Normal S2, No murmurs, Bradycardic Abdomen: Bowel Sounds Present, Soft, Non Tender, Non-Distended Extremities: No edema, Capillary Refill Less than 3 Seconds Skin: No rashes, No breakdown Musculoskeletal: No Tenderness to Palpation of Joints or Extremities, Arthritic Changes Neurological: Cranial nerves II-XII grossly intact, Deep Tendon Reflexes 2+/4 and Symmetrical, Neuro grossly intact, Motor Exam 5/5 strength throughout, - - NIH stroke scale 0 Psych/Mental Status: Normal Affect, Appropriate Microbiology Past 72 Hours 03/19/19 20:40 Urine, Clean Catch Urine Culture - Final Mixed Gram Positive Organisms Laboratory Results 03/21/19 06:25: Triglycerides 96, Cholesterol 153, LDL Cholesterol 76, VLDL Cholesterol 19, HDL Cholesterol 58, Free T4 1.22 Current Medications Acetaminophen (Tylenol) 650 mg PO Q6H PRN PRN PRN Reason: Pain Score 1-3/Temp > 100.7 F Amlodipine Besylate (Norvasc) 10 mg PO DAILY [facility] Last Admin: 03/21/19 09:08 Dose: 10 mg Documented by: Aspirin (Aspirin, Baby) 81 mg PO DAILY@0800 [facility] Last Admin: 03/21/19 09:02 Dose: 81 mg Documented by: Atorvastatin Calcium (Lipitor) 80 mg PO QHS [facility] Last Admin: 03/20/19 21:22 Dose: 80 mg Documented by: Cholecalciferol (Vitamin D) 5,000 unit PO DAILY [facility] Last Admin: 03/21/19 09:08 Dose: 5,000 unit Documented by: Clopidogrel Bisulfate (Plavix) 75 mg PO DAILY [facility] Last Admin: 03/21/19 09:08 Dose: 75 mg Documented by: Cyanocobalamin (Vitamin B12) 1,000 mcg PO DAILY@0800 [facility] Last Admin: 03/21/19 09:02 Dose: 1,000 mcg Documented by: Dextrose (D50w Syringe) 0 gm IV X1 PRN; Protocol PRN Reason: Hypoglycemia Enoxaparin Sodium (Lovenox) 30 mg SC DAILY@1000 [facility] Last Admin: 03/21/19 09:07 Dose: 30 mg Documented by: Folic Acid (Folic Acid) 0.5 mg PO DAILY@0800 [facility] Last Admin: 03/21/19 09:03 Dose: 0.5 mg Documented by: Glucagon () 1 mg IM .X1 PRN PRN Reason: Hypoglycemia Metoprolol Tartrate (Lopressor (Beta Ervin)) 50 mg PO BID [facility] Last Admin: 03/21/19 09:07 Dose: 50 mg Documented by: Thiamine HCl (Vitamin B1) 100 mg PO 4X/DAY [facility] Last Admin: 03/21/19 14:02 Dose: 100 mg Documented by: Discharge Activity: May Not Drive Call your doctor if you observe: Fever of 101 or Higher, Numbness or Tingling, Inability to urinate, Inability to have a bowel movement, Shortness of breath, Dizziness, Fainting spells, Swelling in the ankles, Chest pain, Prolonged hiccoughing, Increased palpitations (irregular heartbeat), Calf discomfort, Uncontrolled pain Home Medications: Medications to take at Discharge Amlodipine [Norvasc] 10 mg PO DAILY #90 tablet 11/29/14 Folic Acid 0.5 mg PO DAILY@0800 #30 tablet 11/29/14 Metoprolol Tartrate [Lopressor (beta ervin)] 50 mg PO BID #90 tablet 11/29/14 Cholecalciferol (Vitamin D3) [Vitamin D3] 5,000 unit PO DAILY 03/20/19 Glucosamine HCl/Chondroitin Sandoval [Glucosamine-Chondroitin Cap] 1 ea PO DAILY 03/20/19 Thiamine Hydrochloride [Vitamin B1] 100 mg PO 4X/DAY 03/20/19 Aspirin [Aspirin, Baby] 81 mg PO DAILY@0800 #30 tab.chew 03/21/19 Atorvastatin Calcium 20 mg PO DAILY #30 tab 03/21/19 Clopidogrel Bisulfate [Plavix] 75 mg PO DAILY #30 tab 03/21/19 Cyanocobalamin [Vitamin B12] 1,000 mcg PO DAILY@0800 #60 tab 03/21/19 Following Prescrptions Were Given to Patient: Aspirin [Aspirin, Baby] 81 mg PO DAILY@0800 #30 tab.chew Transmission Status: Sent to [facility] Atorvastatin Calcium 20 mg PO DAILY #30 tab Transmission Status: Pending to [facility] Clopidogrel Bisulfate [Plavix] 75 mg PO DAILY #30 tab Transmission Status: Sent to [facility] Cyanocobalamin [Vitamin B12] 1,000 mcg PO DAILY@0800 #60 tab Transmission Status: Pending to [facility] Primary Care Physician: Kezia Duque MD [Primary Care Provider] - Please follow up with your Primary Care Physician in: in 2 week Please Follow Up With: Bubba Jarvis MD When: in 4 weeks Medical Necessity - Tobacco Use Smoking Status: Never smoker Meaningful Use Info Meaningful Use Diagnoses (Choose all that apply): Ischemic CVA - CVA Therapy Assessed for PT,OT and/or ST?: Yes - Ischemic Stroke Antithrombotic order at d/c?: Yes Dx of Atrial fib/flutter?: No Anticoagulant at discharge?: Yes Statins at discharge?: Yes Primary Dx Acute Ischemic CVA?: Yes IV tPA ordered during stay?: No Reason IV t-PA not ordered: Treatment not Indicated Code Visit Inpatient E&M: 58882 Disch Hosp
--- NOTE | 2019-03-24 15:00 | CASEMGMT ---
Case Management DC F/u Call: DC Date: 03/21/19 DC Diagnosis: Lightheaded (Acute), Impaired ambulation (Acute), Disequilibrium (Acute) DC Disposition: Home Lace/Strata: 01/28 Called patient home phone listed on demographics, patient answered and this commercial insurance underwriter introduced self and role. Patient states that she is doing good and that she has her 2 day monitor placed at time of DC and today got her 30 day event monitor placed. Confirmed her picked up her DC medications and denies any issues/concerns/or questions with ACI, Medications or f/u. F/u appointments were scheduled at time of DC. Patient states received great care at [facility], this commercial insurance underwriter thanked patient for choosing [facility] for her care and ended conversation. Chaparro Brown RNCM
== END 2019-03-21 16:49 | disposition home or self-care (01) | DRG 65 ==
LOC: ED 21:49 → PCU 03-20 01:29
PROVIDERS: Admitting Provider Hospitalist; Emergency Provider Emergency Medicine; Family Provider Internal Medicine; PCP Internal Medicine; Visit Provider Internal Medicine
DX: I63.9 Cerebral infarction, unspecified (principal); N18.4 Chronic kidney disease, stage 4 (severe); I12.9 Hypertensive chronic kidney disease with stage 1 through stage 4 chronic kidney disease, or unspecified chronic kidney disease; Z85.51 Personal history of malignant neoplasm of bladder
CPT/HCPCS: 36415; 70450; 70544; 70547; 70551; 71046; 80048; 80061; 81001; 82306; 82607; 84439; 84443; 84484; 85025; 85610; 85730; 87086; 87088; 92610; 93005; 93306; 93880; 97162; 97166; 97530; 97535; 99284; J7030; A4216

== ENCOUNTER → 2019-03-21 | Outpatient (CLI) | payer MEDICARE, OTHER, SELFPAY ==
[2019-03-20 21:32] VITALS: BMI 25.0
== END | disposition home or self-care (01) ==
PROVIDERS: Family Provider Internal Medicine; PCP Internal Medicine; Referring Provider Internal Medicine; Visit Provider Internal Medicine
DX: R00.0 Tachycardia, unspecified (principal)
CPT/HCPCS: 93225; 93226

== ENCOUNTER 2020-06-24 10:11 | Outpatient (RCR) | payer MEDICARE, SELFPAY ==
[2020-06-23 12:07] VITALS: BMI 24.8
== END 2020-06-24 23:59 ==
LOC: IMMUN 10:11
PROVIDERS: PCP Internal Medicine; Visit Provider Family Medicine
DX: Z23 Encounter for immunization (principal)
CPT/HCPCS: 0011A; 0012A; 91301

== ENCOUNTER 2021-08-05 10:07 | Outpatient (CLI) | payer MEDICARE, SELFPAY ==
--- NOTE | 2021-08-05 10:12 | RAD_ITS ---
STUDY: X-RAY - PELVIS REASON FOR EXAM: Female, 85 years old. PAIN TECHNIQUE: One view of the pelvis was obtained. COMPARISON: None. FINDINGS: There is a non-specific bowel gas pattern. Normal visualized soft tissue structures. There is diffuse demineralization of the osseous structures. There is narrowing with cortical sclerosis and osteophyte formation of the sacroiliac joint consistent with degenerative osteoarthritic changes. Normal visualized bilateral superior and inferior pubic rami. Normal pubic symphysis. Normal ischial tuberosities. Normal visualized right femoral head. Normal right acetabulum. There is moderate articular joint space narrowing of the right hip. Normal visualized left femoral head. Normal left acetabulum. There is moderate articular joint space narrowing of the left hip. RAD/Pelvis 1 or 2 Views IMPRESSION: Age consistent degenerative changes, no acute findings Electronically Signed: Jaycob Costa MD at 16:47 EST ,
[2021-08-05 12:23] LABS: Erythrocyte Sedimentation Rate 11 mm/hr (0-30)
[2021-08-05 12:25] LABS: Absolute Lymphocyte Count 0.76 X10^3/uL (0.83-4.51); Absolute Neutrophil Count 3.3 X10^3/uL (2.0-7.7); Basophil# 0.05 X10^3/uL; Basophil% 1.1 % (0-1); Eosinophils% 2.1 % (0-5); Hematocrit 37.5 % (37-47); Hemoglobin 13.2 g/dL (12.0-15.0); Lymphocyte # 0.76 X10^3/ul (0.83-4.51); Lymphocyte % 16.2 % (19-41); Mean Corp Hgb Conc 35.2 g/dL (32-36); Mean Corpuscular Hgb 33.4 pg (27.0-32.0); Mean Corpuscular Volume 94.9 fL (81-99); Mean Platelet Vol. 10.5 fl (6.2-12.0); Monocyte# 0.47 X10^3/uL; NRBC Flagged by Analyzer 0 % (0-5); Neutrophil # 3.29 X10^3/uL (2.7-7.7); Neutrophil % 70.4 % (47-70); Platelet Count 204 K/mm3 (150-450); RBC Distribution Width CV 13.2 % (11.6-14.6); RBC Distribution Width SD 45.1 fl (35.1-43.9); Red Blood Count 3.95 M/mm3 (4.2-5.4); White Blood Count 4.7 K/mm3 (4.4-11.0)
[2021-08-05 12:48] LABS: AST(SGOT) 17 U/L (15-37); Alanine Aminotransfer ALT/SGPT 18 U/L (13-56); Albumin, Serum 3.5 g/dL (3.2-5.0); Alkaline Phosphatase 116 U/L (45-117); Anion Gap 6 (5-15); BUN 15 mg/dL (7-18); BUN/Creat Ratio 8.9 RATIO (10-20); CRP < 2.90 mg/L (0.0-3.0); Calcium,Total 8.9 mg/dL (8.5-10.1); Chloride 112 mmol/L (98-107); Creatinine, Serum 1.69 mg/dL (0.55-1.02); EST Glomerular Filtration Rate 31 mL/min (>60); Est Glom Filt Rate - Afr Amer 37 mL/min (>60); Globulin 3.4 g/dL (2.2-4.2); Glucose 97 mg/dL (74-106); Protein, Total 6.9 g/dL (6.4-8.2); Sodium Level 141 mmol/L (136-145)
[2021-08-05 13:14] LABS: Hepatitis B Surface Antibody Non-Reactive; Hepatitis B Surface Antigen Non-Reactive (Nonreactive); Hepatitis C Antibody Non-Reactive (Nonreactive)
[2021-08-07 17:03] LABS: ANTINUCLEAR ANTIBODIES DIRECT Negative (Negative)
[2021-08-07 23:02] LABS: CCP IgG Antibodies 7 units (0-19)
== END 2021-08-05 23:59 | disposition home or self-care (01) ==
LOC: MTLAB 10:10
PROVIDERS: PCP Internal Medicine; Referring Provider Internal Medicine Rheumatology; Visit Provider Internal Medicine Rheumatology
DX: M06.4 Inflammatory polyarthropathy (principal); I48.0 Paroxysmal atrial fibrillation; M79.7 Fibromyalgia; M19.041 Primary osteoarthritis, right hand; M18.0 Bilateral primary osteoarthritis of first carpometacarpal joints; M47.892 Other spondylosis, cervical region; M47.897 Other spondylosis, lumbosacral region; I12.9 Hypertensive chronic kidney disease with stage 1 through stage 4 chronic kidney disease, or unspecified chronic kidney disease; N18.9 Chronic kidney disease, unspecified; Z86.73 Personal history of transient ischemic attack (TIA), and cerebral infarction without residual deficits
CPT/HCPCS: 36415; 72170; 80053; 85025; 85652; 86038; 86140; 86200; 86431; 86706; 86803; 87340

== ENCOUNTER 2023-11-03 09:19 | Emergency (ER) | payer MEDICARE, SELFPAY ==
[2023-11-03 09:20] VITALS: BP 151/82; PULSE 84; RESP 18; TEMP 36.4; O2SAT 98
--- NOTE | 2023-11-03 10:06 | RAD_ITS ---
STUDY: X-RAY - CERVICAL SPINE REASON FOR EXAM: Female, 87 years old. Pain, decreased range of motion TECHNIQUE: 4 view(s) of the cervical spine were obtained. COMPARISON: None FINDINGS: Normal anterior atlantoaxial articulation. Normal odontoid process. There is straightening of the normal cervical lordosis. There is diffuse demineralization of the cervical spine. There is multi-level degenerative disc disease with multilevel disc space narrowing. The soft tissue structures are unremarkable. RAD/Cerv Spine 2 or 3 Views IMPRESSION: Multilevel degenerative changes, no acute findings Electronically Signed: Jyacob Costa MD at 10:49 EDT ,
--- NOTE | 2023-11-03 10:07 | EDS_ITS ---
HPI History of Present Illness Chief Complaint: Other, Pain/Inj Detail of Chief Complaint: Neck pain Informant: patient Narrative Narrative: Patient presents with neck pain and sore yesterday. She has history of chronic pain off-and-on from history of arthritis. She denies any falls or injuries. Pain in her neck kept her up at night. She denies any pain radiating down her arms. She denies any paresthesias. Denies fevers or chills or sweats. Patient also complains of pain in her low back frequently. [facility] Medical History (Updated 11/03/23 @ 11:[address] 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) Vitamin D deficiency Carotid aneurysm, left Essential hypertension Disequilibrium Impaired ambulation Lightheaded Bladder cancer History of ETOH abuse Hypercalcemia Family hx of colon cancer Microscopic hematuria Acute renal failure Normochromic normocytic anemia History of sciatica Home Medications ?Medication ?Instructions ?Recorded ?Last Taken ?Type folic acid 1 mg tablet 0.5 mg (1/2 x 1 mg) PO DAILY@0800 11/29/14 03/19/19 09:00 Rx #30 tabs cholecalciferol (vitamin D3) 125 5,000 unit PO DAILY supplement 03/20/19 03/19/19 09:00 History mcg (5,000 unit) capsule aspirin 81 mg chewable tablet 81 mg PO DAILY@0800 ##30 03/21/19 Unknown Rx cyanocobalamin (vitamin B-12) 500 1,000 mcg (2 x 500 mcg) PO 03/21/19 Unknown Rx mcg tablet DAILY@0800 #60 tabs biotin 5 mg tablet mg PO 05/13/19 Unknown History thiamine HCl (vitamin B1) 100 mg 100 mg PO 4X/DAY 05/13/19 Unknown History tablet apixaban 2.5 mg tablet (Eliquis) 2.5 mg PO BID #180 tabs 05/14/19 Unknown Rx glucosamine-chondroitin 500 mg-400 1 cap PO TID supplement 09/16/19 Unknown History mg capsule amlodipine 10 mg tablet 10 mg PO DAILY #90 tabs 05/27/20 Unknown Rx atorvastatin 20 mg tablet 20 mg PO DAILY #90 tabs 06/17/20 Unknown Rx clopidogrel 75 mg tablet 75 mg PO DAILY #90 tabs 06/17/20 Unknown Rx metoprolol tartrate 50 mg tablet 50 mg PO BID #180 tabs 06/17/20 Unknown Rx hydrocodone-acetaminophen 5-325mg 1 tab PO Q4H PRN PRN Pain 3 days 11/03/23 Unknown Rx 5mg-325mg #15 TABLETS ondansetron 4 mg disintegrating 4 mg PO Q8H PRN PRN Nausea #10 tabs 11/03/23 Unknown Rx tablet Allergy/AdvReac Type Severity Reaction Status Date / Time tramadol Allergy Intermediate Nausea Verified 11/03/23 09:20 Family History Mother Colon cancer Surgical History History of bladder surgery Social History (Updated 06/05/20 @ 16:10 by Tuyet Irizarry) Smoking Status: Never smoker alcohol intake: former ROS ROS ED Review of Systems ROS Unobtainable: other Constitutional Constitutional ED: Reports lethargy; Denies chills, fever(s), sweats or weight loss Eyes Eyes: Denies blurry vision, change in vision or diplopia ENT ENT ED: Denies rhinorrhea or sore throat Cardiovascular Cardiovascular: Denies chest pain, orthopnea or racing heartbeat Respiratory/Chest Respiratory/Chest: Denies cough, dyspnea, dyspnea on exertion, orthopnea or sputum Gastrointestinal Gastrointestinal: Denies abdominal pain, diarrhea, nausea or vomiting Genitourinary Genitourinary ED: Denies dysuria, hematuria or urinary frequency Musculoskeletal Musculoskeletal: Reports neck pain; Denies arthralgias, back pain or myalgias Integumentary Denies abscess, Abrasions or rash Neurologic Neurologic: Denies headache(s) or weakness Psychiatric Psychiatric: Denies anxiety, depression or suicidal thoughts Endocrine Endocrinology: Denies polydipsia, polyphagia or polyuria Hematologic/Lymphatic Hematologic/Lymphatic: Denies easy bleeding, easy bruising or lymphadenopathy Allergic/Immunologic Allergic/Immunologic ED: Denies mouth swelling, tongue swelling or urticaria EXAM Physical Exam Const Vital Signs: 11/03/23 09:20 Temperature 97.6 F L Temperature Source Temporal Pulse Rate 84 Respiratory Rate 18 Blood Pressure 151/82 H Blood Pressure Mean 105 Pulse Ox 98 Oxygen Delivery Method Room Air Positive well nourished and well developed General Appearance ED: well developed and NAD HEENT Reports TM's clear and moist mucous membranes normocephalic and atraumatic; Negative for trauma or tenderness Tympanic Membrane ED: Yes TM's clear Eyes PERRL and EOMs intact bilaterally General Eye ED: Negative for pale conjunctiva or scleral icterus Neck no lymphadenopathy, supple and no JVD Neck Narrative: Mild tenderness in the midline diffusely over the C-spine. Patient also with more significant tenderness over the left trapezius as well as the right trapezius. Pain is reproducible on exam. Normal strength in the upper and lower extremities. Deep tendon reflexes plus 2 out of 4 bilaterally at the bicep, tricep, brachioradialis. General: Negative for tenderness Chest Wall inspection of chest normal and palpation of chest normal Chest: Negative for tenderness Resp normal respiratory effort and clear to auscultation bilaterally Effort and Inspection: Negative for respiratory distress or pain with movement Auscultation: Negative for rhonchi, wheezes or diminished lung sounds Cardio regular rate, regular rhythm, S1 normal heart sound, S2 normal heart sound and no murmurs Peripheral Pulses: pulses 2+ throughout GI normal to inspection, nondistended, normoactive bowel sounds, soft to palpation, non-tender, non-distended and no masses Back/Spine no CVA tenderness and no thoracic nor lumbar tenderness Extremity normal to inspection General Extremety ED: Negative for edema General Extremity: Negative for edema Neuro oriented x3, CN's II-XII intact bilaterally, no sensory deficits noted and gait normal Sensorium / Orientation: awake, alert, oriented to person, oriented to place and oriented to time Motor Exam: strength 5/5 throughout and strength abnormal Psych mental status grossly normal Skin no rashes or lesions noted and no wounds MDM MDM MDM Narrative Medical decision making narrative: Patient received a dose of morphine and Zofran and had good pain relief with that. At this point we discharged home with a prescription for [place]. She has muscle relaxer at home. Advised to follow-up with primary care physician 5 to 7 days. She has no radiculopathic signs or symptoms and do not feel any emergent MRI is indicated. Radiography Diagnostic Testing: Clinical Impression(s) from Imaging Studies Cervical Spine X-Ray 11/03/23 10:06 IMPRESSION: Multilevel degenerative changes, no acute findings Electronically Signed: Jaycob Costa MD at 10:49 EDT , Three-view x-rays of the cervical spine obtained interpreted by myself as severe degenerative changes without obvious fracture. Radiology in agreement. Discharge Plan Triage Chief Complaint: Other, Pain/Inj ED Provider: Wilber Arriaza Dx/Rx/DC Orders Clinical Impression: Neck pain Instructions: ED Neck Pain, ED Back and Neck Pain, General Prescriptions: New hydrocodone-acetaminophen 5-325 mg tablet 1 tab PO Q4H PRN PRN (Reason: Pain) 3 Days Qty: 15 0RF ondansetron 4 mg tablet,disintegrating 4 mg PO Q8H PRN PRN (Reason: Nausea) Qty: 10 0RF No Action Eliquis 2.5 mg tablet 2.5 mg PO BID Qty: 180 3RF biotin 5 mg tablet PO folic acid 1 MG tablet 0.5 mg PO DAILY@0800 Qty: 30 0RF Patient Comments: supplement cholecalciferol (vitamin D3) 5,000 UNIT capsule 5,000 unit PO DAILY aspirin 81 MG tablet,chewable 81 mg PO DAILY@0800 Qty: 30 0RF cyanocobalamin (vitamin B-12) 500 MCG tablet 1,000 mcg PO DAILY@0800 Qty: 60 0RF thiamine HCl (vitamin B1) 100 mg tablet 100 mg PO 4X/DAY Patient Comments: supplement glucosamine-chondroitin 500-400 mg capsule 1 cap PO TID amlodipine 10 mg tablet 10 mg PO DAILY Qty: 90 3RF Patient Comments: blood pressure atorvastatin 20 mg tablet 20 mg PO DAILY Qty: 90 3RF clopidogrel 75 mg tablet 75 mg PO DAILY Qty: 90 3RF metoprolol tartrate 50 mg tablet 50 mg PO BID Qty: 180 3RF Patient Comments: blood pressure Primary Care Provider: Kezia Duque Referrals: Kezia Duque MD [Primary Care Provider] - 5-7 Days Print Language: Stateless Disposition Disposition: Home, Self Care
[2023-11-03] MEDS: Morphine 4 MG/ML Syringe IM (10:31)
[2023-11-03] MEDS: Ondansetron 4 MG/2 ML Vial IM (10:31)
[2023-11-03 11:32] VITALS: BP 137/66; PULSE 82; RESP 16; TEMP 36.4; O2SAT 99
== END 2023-11-03 11:37 | disposition home or self-care (01) ==
PROVIDERS: Emergency Provider Emergency Medicine; PCP Internal Medicine; Visit Provider Emergency Medicine
DX: M54.2 Cervicalgia (principal); N18.4 Chronic kidney disease, stage 4 (severe); G89.29 Other chronic pain; I12.9 Hypertensive chronic kidney disease with stage 1 through stage 4 chronic kidney disease, or unspecified chronic kidney disease
CPT/HCPCS: 72040; 96372; 99282; J2405

== ENCOUNTER 2023-11-17 15:50 | Emergency (ER) | payer MEDICARE, SELFPAY ==
[2023-11-17 15:50] VITALS: BP 144/90; PULSE 88; PULSE 92; RESP 14; TEMP 36.4; O2SAT 96; O2SAT 99; BMI 24.1
--- NOTE | 2023-11-17 16:26 | EX.ED.DYSGE1 ---
HPI History of Present Illness Chief Complaint: Other, Pain/Inj Informant: patient and family Narrative Narrative: Patient is 87-year-old female with history of chronic neck pain presenting with recurrent neck pain. Patient states she has a lot of arthritis in her neck and from time to time will get worse. Over the past few weeks she has been having worsening of her neck pain. She was seen in our ER at the beginning of the month and had x-rays and was placed on a short course of [place]. She followed up with her primary care doctor and was prescribed physical therapy but has not started yet (they state they cannot get her in until November). She was given a further prescription for [place] and also placed on a Medrol Dosepak. She states since being off the steroids the pain seems to be worsening. She also has a couple of muscle relaxers at home but feels that the pain medicines work better than the muscle relaxers. Denies any new injury or trauma. Denies any weakness of the arms. Denies any numbness or tingling of the upper extremities. Denies any difficulty breathing. No other complaints or concerns reported at this time. 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) Vitamin D deficiency Carotid aneurysm, left Essential hypertension Disequilibrium Impaired ambulation Lightheaded Bladder cancer History of ETOH abuse Hypercalcemia Family hx of colon cancer Microscopic hematuria Acute renal failure Normochromic normocytic anemia History of sciatica Home Medications ?Medication ?Instructions ?Recorded ?Last Taken ?Type folic acid 1 mg tablet 0.5 mg (1/2 x 1 mg) PO DAILY@0800 11/29/14 11/17/23 Rx #30 tabs cholecalciferol (vitamin D3) 125 5,000 unit PO DAILY supplement 03/20/19 11/17/23 History mcg (5,000 unit) capsule aspirin 81 mg chewable tablet 81 mg PO DAILY@0800 ##30 03/21/19 11/17/23 Rx cyanocobalamin (vitamin B-12) 500 1,000 mcg (2 x 500 mcg) PO 03/21/19 11/17/23 Rx mcg tablet DAILY@0800 #60 tabs biotin 5 mg tablet 5 mg PO DAILY 05/13/19 11/17/23 History thiamine HCl (vitamin B1) 100 mg 100 mg PO 4X/DAY 05/13/19 11/17/23 History tablet apixaban 2.5 mg tablet (Eliquis) 2.5 mg PO BID #180 tabs 05/14/19 11/17/23 Rx glucosamine-chondroitin 500 mg-400 1 cap PO TID supplement 09/16/19 11/17/23 History mg capsule amlodipine 10 mg tablet 10 mg PO DAILY #90 tabs 05/27/20 11/17/23 Rx atorvastatin 20 mg tablet 20 mg PO DAILY #90 tabs 06/17/20 11/17/23 Rx clopidogrel 75 mg tablet 75 mg PO DAILY #90 tabs 06/17/20 11/17/23 Rx metoprolol tartrate 50 mg tablet 50 mg PO BID #180 tabs 06/17/20 11/17/23 Rx hydrocodone-acetaminophen 5-325mg 1 tab PO Q4H PRN PRN Pain 3 days 11/03/23 11/17/23 Rx 5mg-325mg #15 TABLETS methylprednisolone 4 mg tablets in See Rx Instructions PO .COMPLEX 11/17/23 Unknown Rx a dose pack (Medrol (Tye)) #21 tabs Allergy/AdvReac Type Severity Reaction Status Date / Time tramadol Allergy Intermediate Nausea Verified 11/17/23 15:53 Family History Mother Colon cancer Surgical History History of bladder surgery Social History Smoking Status: Never smoker alcohol intake: former ROS ROS ED Constitutional Constitutional ED: Denies chills or fever(s) Eyes Eyes: Denies change in vision ENT ENT ED: Denies sore throat Cardiovascular Cardiovascular: Denies chest pain Respiratory/Chest Respiratory/Chest: Denies cough Gastrointestinal Gastrointestinal: Denies nausea or vomiting Musculoskeletal Musculoskeletal: Reports neck pain Integumentary Denies rash Neurologic Neurologic: Denies headache(s), paresthesias or weakness Hematologic/Lymphatic Hematologic/Lymphatic: Reports easy bleeding and other Details: On Eliquis EXAM Physical Exam Const Vital Signs: 11/17/23 15:50 11/17/23 15:50 11/17/23 15:50 Temperature 97.6 F L Temperature Source Temporal Pulse Rate 88 92 Respiratory Rate 14 14 Respiratory Effort Normal Non-Labored Respiratory Pattern Normal Blood Pressure 144/90 H Blood Pressure Mean 108 Pulse Ox 99 96 Oxygen Delivery Method Room Air Room Air Positive well nourished and well developed General Appearance ED: well developed and NAD HEENT Reports moist mucous membranes Eyes PERRL Neck supple Neck Narrative: No midline tenderness. Bilateral lateral muscular neck tenderness as well as tenderness over the bilateral trapezius muscles. Normal range of motion of the neck. Slight kyphosis present. Chest Wall inspection of chest normal Resp normal respiratory effort and clear to auscultation bilaterally Cardio regular rate and regular rhythm Extremity normal to inspection Neuro oriented x3 Neuro Narrative: Normal strength and sensation of the upper extremities Sensorium / Orientation: alert Motor Exam: Negative for general weakness Psych mental status grossly normal Skin no rashes or lesions noted and no wounds MDM MDM MDM Narrative Medical decision making narrative: Patient evaluated for acute exacerbation of chronic neck pain. She has been able to stable in the ER. Does not have any focal neurologic deficits or other acute symptoms. I do not think she requires repeat imaging at this time. Will place her back on another course of steroids and give her dose of [place] in the ER. She currently has an active prescription for [place] from her PCP and explained that I do not feel comfortable prescribing her further opioids at this time. Will refer to pain management however she can continue to follow-up with her primary care doctor. Counseled on the importance of receiving pain medication either from pain management of her PCP especially if she is needing them more regularly. Patient and granddaughter agreeable this plan of care. Patient discharged home in stable condition. Discussed return precautions such as new neurologic symptoms or intractable pain. Discharge Plan Triage Chief Complaint: Other, Pain/Inj ED Provider: Julissa Mustafa Dx/Rx/DC Orders Clinical Impression: Neck and shoulder pain Instructions: ED Neck Pain Prescriptions: New methylprednisolone [Medrol (Tye)] 4 mg tablets,dose pack See Rx Instructions .ROUTE .COMPLEX Qty: 21 0RF Rx Instructions: for 6 days No Action Eliquis 2.5 mg tablet 2.5 mg PO BID Qty: 180 3RF biotin 5 mg tablet 5 mg PO DAILY folic acid 1 MG tablet 0.5 mg PO DAILY@0800 Qty: 30 0RF Patient Comments: supplement cholecalciferol (vitamin D3) 5,000 UNIT capsule 5,000 unit PO DAILY aspirin 81 MG tablet,chewable 81 mg PO DAILY@0800 Qty: 30 0RF cyanocobalamin (vitamin B-12) 500 MCG tablet 1,000 mcg PO DAILY@0800 Qty: 60 0RF thiamine HCl (vitamin B1) 100 mg tablet 100 mg PO 4X/DAY Patient Comments: supplement glucosamine-chondroitin 500-400 mg capsule 1 cap PO TID hydrocodone-acetaminophen 5-325 mg tablet 1 tab PO Q4H PRN PRN (Reason: Pain) 3 Days Qty: 15 0RF amlodipine 10 mg tablet 10 mg PO DAILY Qty: 90 3RF Patient Comments: blood pressure atorvastatin 20 mg tablet 20 mg PO DAILY Qty: 90 3RF clopidogrel 75 mg tablet 75 mg PO DAILY Qty: 90 3RF metoprolol tartrate 50 mg tablet 50 mg PO BID Qty: 180 3RF Patient Comments: blood pressure Primary Care Provider: Kezia Duque Referrals: Felix Thornton MD [Med Staff - Active Staff] - As soon as possible Kezia Duque MD [Primary Care Provider] - Print Language: Indonesian Disposition Disposition: Home, Self Care
[2023-11-17] MEDS: HYDROcodone Bitartrate/Apap 5/325 Tablet PO (16:36)
[2023-11-17 16:42] VITALS: BP 136/84; PULSE 89; RESP 18; TEMP 36.6; O2SAT 98
== END 2023-11-17 16:44 | disposition home or self-care (01) ==
PROVIDERS: Emergency Provider Emergency Medicine; PCP Internal Medicine; Visit Provider Emergency Medicine
DX: M54.2 Cervicalgia (principal); N18.4 Chronic kidney disease, stage 4 (severe); I48.0 Paroxysmal atrial fibrillation; M25.519 Pain in unspecified shoulder; G89.29 Other chronic pain; I12.9 Hypertensive chronic kidney disease with stage 1 through stage 4 chronic kidney disease, or unspecified chronic kidney disease; Z79.82 Long term (current) use of aspirin; Z79.01 Long term (current) use of anticoagulants; Z79.899 Other long term (current) drug therapy
CPT/HCPCS: 99282

== ENCOUNTER 2024-02-29 14:21 | Observation (INO) | payer MEDICARE, SELFPAY ==
[2024-02-29 14:21] VITALS: BP 152/88; PULSE 85; RESP 16; TEMP 36.6; O2SAT 97
--- NOTE | 2024-02-29 14:31 | EKG12_ITS ---
Test Reason : EPIGASTRIC PAIN Blood Pressure : / mmHG Vent. Rate : 072 BPM Atrial Rate : 072 BPM P-R Int : 212 ms QRS Dur : 080 ms QT Int : 406 ms P-R-T Axes : 027 003 078 degrees QTc Int : 444 ms Sinus rhythm with 1st degree A-V block Otherwise normal ECG Confirmed by CL MACHADO, WILLY ([id number]), publications editor ROSA VELAZQUEZ ([id number]) on 03/04/2024 2:06:29 PM Referred By: LINN/JOHAN Confirmed By:WILLY SMALLWOOD MD
--- NOTE | 2024-02-29 15:41 | ED.VIS.GI ---
HPI HPI - GI History of Present Illness Chief Complaint: Abd Pain Informant: patient Abdominal Pain/Flank Pain Onset: Today Context: Gradual Onset Timing: Waxes and wanes Quality: Cramping Location: Epigastric Worsened by: Nothing Relieved by: Nothing Nausea/Vomiting/Emesis GI Symptom: Positive for Nausea; Negative for Vomiting Diarrhea/Melena/Hematochezia GI Symptom: Negative for Diarrhea, Melena or Hematochezia Associated Symptoms Associated Symptoms: Negative for Dysuria, Frequency or Hematuria Narrative Narrative: Patient presents with epigastric abdominal pain that began earlier this morning. Patient states it is gradually gotten worse throughout the day. Patient states it has been waxing and waning. Patient states the pain is only over the epigastric area. Patient denies any radiation of the pain. Patient describes it as cramping. Patient states nothing makes it worse and nothing makes it better. Patient admits to some nausea but denies any vomiting. Patient denies any diarrhea or constipation. Patient denies any melena or hematochezia. Patient denies any urinary complaints. Patient denies any fevers or chills. 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) Vitamin D deficiency Carotid aneurysm, left Essential hypertension Disequilibrium Impaired ambulation Lightheaded Bladder cancer History of ETOH abuse Hypercalcemia Family hx of colon cancer Microscopic hematuria Acute renal failure Normochromic normocytic anemia History of sciatica Home Medications ?Medication ?Instructions ?Recorded ?Last Taken ?Type folic acid 1 mg tablet 0.5 mg (1/2 x 1 mg) PO DAILY@0800 /10/0911/17/23 Rx #30 tabs cholecalciferol (vitamin D3) 125 5,000 unit PO DAILY supplement 03/20/19 11/17/23 History mcg (5,000 unit) capsule aspirin 81 mg chewable tablet 81 mg PO DAILY@0800 ##30 03/21/19 11/17/23 Rx cyanocobalamin (vitamin B-12) 500 1,000 mcg (2 x 500 mcg) PO 03/21/19 11/17/23 Rx mcg tablet DAILY@0800 #60 tabs biotin 5 mg tablet 5 mg PO DAILY 05/13/19 11/17/23 History thiamine HCl (vitamin B1) 100 mg 100 mg PO 4X/DAY 05/13/19 11/17/23 History tablet apixaban 2.5 mg tablet (Eliquis) 2.5 mg PO BID #180 tabs 05/14/19 11/17/23 Rx glucosamine-chondroitin 500 mg-400 1 cap PO TID supplement 09/16/19 11/17/23 History mg capsule amlodipine 10 mg tablet 10 mg PO DAILY #90 tabs 05/27/20 11/17/23 Rx atorvastatin 20 mg tablet 20 mg PO DAILY #90 tabs 06/17/20 11/17/23 Rx clopidogrel 75 mg tablet 75 mg PO DAILY #90 tabs 06/17/20 11/17/23 Rx metoprolol tartrate 50 mg tablet 50 mg PO BID #180 tabs 06/17/20 11/17/23 Rx hydrocodone-acetaminophen 5-325mg 1 tab PO Q4H PRN PRN Pain 3 days 11/03/23 11/17/23 Rx 5mg-325mg #15 TABLETS methylprednisolone 4 mg tablets in See Rx Instructions PO .COMPLEX 11/17/23 Unknown Rx a dose pack (Medrol (Tye)) #21 tabs Allergy/AdvReac Type Severity Reaction Status Date / Time tramadol Allergy Intermediate Nausea Verified 02/29/24 14:24 Family History Mother Colon cancer Surgical History History of bladder surgery Social History Smoking Status: Never smoker alcohol intake: former ROS ROS ED Constitutional Constitutional ED: Denies chills or fever(s) Eyes Eyes: Denies blurry vision or change in vision ENT ENT ED: Denies rhinorrhea or sore throat Cardiovascular Cardiovascular: Denies chest pain or palpitations Respiratory/Chest Respiratory/Chest: Denies cough or dyspnea Gastrointestinal Gastrointestinal: Reports abdominal pain and nausea; Denies diarrhea, melena or vomiting Genitourinary Genitourinary ED: Denies dysuria or hematuria Musculoskeletal Musculoskeletal: Reports neck pain; Denies back pain Integumentary Denies abscess or rash Neurologic Neurologic: Denies headache(s) or weakness Allergic/Immunologic Allergic/Immunologic ED: Denies mouth swelling or urticaria EXAM Physical Exam Const Vital Signs: 02/29/24 14:21 02/29/24 16:25 02/29/24 17:00 Temperature 97.8 F Temperature Source Oral Pulse Rate 85 81 66 Respiratory Rate 16 20 H 18 Blood Pressure 152/88 H 148/111 H 128/66 H Blood Pressure Mean 109 123 86 Pulse Ox 97 97 99 Oxygen Delivery Method Room Air Room Air 02/29/24 18:00 Temperature Temperature Source Pulse Rate 69 Respiratory Rate 17 Blood Pressure 125/100 H Blood Pressure Mean 108 Pulse Ox 99 Oxygen Delivery Method Room Air Positive well nourished and well developed General Appearance ED: well developed and NAD HEENT Reports moist mucous membranes Neck supple and no JVD Resp normal respiratory effort and clear to auscultation bilaterally Cardio regular rate and regular rhythm GI non-distended Palpation: soft and tender epigastric; Negative for guarding or rebound tenderness present Neuro CN's II-XII intact bilaterally, moves all extremities and no sensory deficits noted Sensorium / Orientation: alert Motor Exam: strength 5/5 throughout Psych mental status grossly normal MDM MDM MDM Narrative Medical decision making narrative: Differential diagnosis includes gastritis, peptic ulcer disease, pancreatitis, cholecystitis, cholelithiasis, bowel obstruction, perforation, pyelonephritis, cardiac dysrhythmia, and cardiac ischemia. CBC will be obtained to assess for leukocytosis and anemia. Comprehensive metabolic profile will be obtained to assess for hepatic function, renal function, and electrolyte abnormality. Lipase will be obtained to assess for pancreatitis. Urinalysis will be obtained to assess for urinary tract infection and hematuria. CT scan of the abdomen and pelvis will be obtained to assess for cholecystitis, cholelithiasis, bowel obstruction, and perforation. Lab Data Attestation: I reviewed the patient's lab results. Lab results narrative: CBC was reviewed and was essentially within normal limits. Comprehensive metabolic profile was reviewed. BUN was slightly elevated at 30 and creatinine was 1.61. Total bilirubin is normal at 0.4. AST, ALT, alkaline phosphatase were all within normal limits. Lipase was reviewed and was slightly elevated at 141. Labs: Laboratory Results - last 24 hr 02/29/24 02/29/24 14:40 18:15 WBC 6.5 RBC 3.78 L Hgb 13.4 Hct 36.8 L MCV 97.4 MCH 35.4 H MCHC 36.4 H RDW Std Deviation 42.7 RDW Coeff of Karol 13.2 Plt Count 209 MPV 11.4 Immature Gran % (Auto) 0.300 Neut % (Auto) 67.7 Lymph % (Auto) 18.9 L Zavala % (Auto) 10.2 H Eos % (Auto) 2.0 Baso % (Auto) 0.9 Absolute Neuts (auto) 4.4 Absolute Lymphs (auto) 1.22 Nucleated RBC % 0 Sodium 141 Potassium 4.4 Chloride 109 H Carbon Dioxide 27.0 Anion Gap 4 L BUN 30 H Creatinine 1.61 H Estim Creat Clear Calc 19.78 Est GFR (MDRD) Af Amer 39 L Est GFR (MDRD) Non-Af 32 L BUN/Creatinine Ratio 18.6 Glucose 117 H Calcium 9.2 Total Bilirubin 0.40 AST 17 ALT 16 Alkaline Phosphatase 82 Total Protein 7.0 Albumin 3.6 Globulin 3.4 Albumin/Globulin Ratio 1.1 Lipase 141 H Urine Color Yellow Urine Clarity Sl. Cloudy Urine pH 7.0 Ur Specific [place] 1.005 Urine Protein 15 H Urine Glucose (UA) Normal Urine Ketones Negative Urine Occult Blood Negative Urine Nitrite Negative Urine Bilirubin Negative Urine Urobilinogen Normal Ur Leukocyte Esterase 100 H Urine RBC 0 SEEN Urine WBC 5-10 SEEN Ur Squamous Epith Cells 0-5 SEEN Urine Bacteria RARE Urine Mucus 0 SEEN Radiography Diagnostic Testing: Clinical Impression(s) from Imaging Studies Abdomen/Pelvis CT 02/29/24 16:00 IMPRESSION: Acute sigmoid diverticulitis. No focal fluid collection or free air. Recommend colonoscopy after acute infection has resolved to rule out underlying malignancy. 4 mm stone in the cystic duct. Consider right upper quadrant ultrasound to assess for acute cholecystitis. Mild intra and extra hepatic biliary ductal dilatation. Consider MRCP to assess for choledocholithiasis. Electronically Signed: Michael Souza MD at 17:23 EDT , CT scan of the abdomen pelvis was obtained. There is acute sigmoid diverticulitis. There is no abscess or free air. There is a 4 mm stone in the cystic duct. There is mild intra and extrahepatic biliary ductal dilatation. This was interpreted by the radiologist and was also independently reviewed by myself. EKG Initial EKG: Attestation: I personally reviewed and interpreted this EKG as follows: Interpretation: Sinus Rhythm (With first-degree AV block with a rate of 72) and No Acute Injury Pattern Comments: EKG was obtained. On my independent interpretation, it showed a sinus rhythm with first-degree AV block with a rate of 72. OH interval was prolonged at 212 ms. QRS interval was normal at 80 ms. QTc interval was normal at 444 ms. [place] was normal. There are no acute ST or T wave changes. Prior EKG tracings: available for review Prior: Unchanged (03/20/2019) Management Discussion w/another healthcare provider: Radiologist Diagnostic (Dr. Carr) Treatment and Re-Evaluation :: Patient was given morphine and Zofran. Patient is feeling better on reevaluation. Patient was given a dose of Zosyn. Case was discussed with Dr. Carr. He will be in to evaluate the patient. Dr. Carr evaluated the patient and will admit her for observation. Patient and family understand and are agreeable with the plan. All questions were answered. Discharge Plan Triage Chief Complaint: Abd Pain ED Provider: Aquiles Arnold Dx/Rx/DC Orders Clinical Impression: Acute cholecystitis, Acute diverticulitis, Abdominal pain, acute, epigastric Prescriptions: No Action Eliquis 2.5 mg tablet 2.5 mg PO BID Qty: 180 3RF biotin 5 mg tablet 5 mg PO DAILY folic acid 1 MG tablet 0.5 mg PO DAILY@0800 Qty: 30 0RF Patient Comments: supplement cholecalciferol (vitamin D3) 5,000 UNIT capsule 5,000 unit PO DAILY aspirin 81 MG tablet,chewable 81 mg PO DAILY@0800 Qty: 30 0RF cyanocobalamin (vitamin B-12) 500 MCG tablet 1,000 mcg PO DAILY@0800 Qty: 60 0RF thiamine HCl (vitamin B1) 100 mg tablet 100 mg PO 4X/DAY Patient Comments: supplement glucosamine-chondroitin 500-400 mg capsule 1 cap PO TID hydrocodone-acetaminophen 5-325 mg tablet 1 tab PO Q4H PRN PRN (Reason: Pain) 3 Days Qty: 15 0RF methylprednisolone [Medrol (Tye)] 4 mg tablets,dose pack See Rx Instructions .ROUTE .COMPLEX Qty: 21 0RF Rx Instructions: for 6 days amlodipine 10 mg tablet 10 mg PO DAILY Qty: 90 3RF Patient Comments: blood pressure atorvastatin 20 mg tablet 20 mg PO DAILY Qty: 90 3RF clopidogrel 75 mg tablet 75 mg PO DAILY Qty: 90 3RF metoprolol tartrate 50 mg tablet 50 mg PO BID Qty: 180 3RF Patient Comments: blood pressure Primary Care Provider: Kezia Duque Referrals: Kezia Duque MD [Primary Care Provider] - Print Language: Sierra Leonean Disposition Disposition: Acute Care Hospital [facility]
[2024-02-29 16:00] VITALS: BMI 25.4
--- NOTE | 2024-02-29 16:00 | CT_ITS ---
INDICATION: Abdominal pain EXAMINATION: CT Abdomen And Pelvis W/ Contrast Injection TECHNIQUE: Helically acquired images were obtained of the abdomen and pelvis after IV contrast. A radiation dose optimization technique was used for this scan. IV Contrast dosage and agent: IV 60mL [id number] Oral contrast: None. COMPARISON: None. FINDINGS: Visualized lung bases: Unremarkable Liver: Scattered subcentimeter hypodensities are too small to characterize but most likely cysts. There is minimal intrahepatic biliary duct dilatation. Gallbladder: There is a 4 mm stone in the cystic duct. There is mild dilatation of the common bile duct measuring up to 7 mm in diameter. Spleen: Multiple splenic granulomas. Pancreas: Unremarkable Adrenal Glands: Unremarkable Kidneys: Unremarkable Vasculature: Severe aortoiliac atherosclerotic disease. GI Tract: Extensive colonic diverticula. There is short segment circumferential wall thickening of the sigmoid colon with surrounding mesenteric fat stranding. No focal fluid collection or free air. Lymphadenopathy: None Peritoneum: No ascites. Bladder: Unremarkable Reproductive organs: Unremarkable Bones/Soft tissues: There are diffuse degenerative changes of the spine. CT/Abdomen/Pelvis W IV Cont ONLY IMPRESSION: Acute sigmoid diverticulitis. No focal fluid collection or free air. Recommend colonoscopy after acute infection has resolved to rule out underlying malignancy. 4 mm stone in the cystic duct. Consider right upper quadrant ultrasound to assess for acute cholecystitis. Mild intra and extra hepatic biliary ductal dilatation. Consider MRCP to assess for choledocholithiasis. Electronically Signed: Michael Souza MD at 17:23 EDT ,
[2024-02-29 16:18] LABS: Absolute Lymphocyte Count 1.22 X10^3/uL (0.83-4.51); Absolute Neutrophil Count 4.4 X10^3/uL (2.0-7.7); Basophil# 0.06 X10^3/uL; Basophil% 0.9 % (0-1); Eosinophil# 0.13 X10^3/uL; Hematocrit 36.8 % (37-47); Hemoglobin 13.4 g/dL (12.0-15.0); Lymphocyte # 1.22 X10^3/ul (0.83-4.51); Lymphocyte % 18.9 % (19-41); Mean Corp Hgb Conc 36.4 g/dL (32-36); Mean Corpuscular Hgb 35.4 pg (27.0-32.0); Mean Corpuscular Volume 97.4 fL (81-99); Mean Platelet Vol. 11.4 fl (6.2-12.0); Monocyte# 0.66 X10^3/uL; Monocyte% 10.2 % (0-10); NRBC Flagged by Analyzer 0 % (0-5); Neutrophil # 4.37 X10^3/uL (2.7-7.7); Neutrophil % 67.7 % (47-70); Platelet Count 209 K/mm3 (150-450); RBC Distribution Width CV 13.2 % (11.6-14.6); RBC Distribution Width SD 42.7 fl (35.1-43.9); Red Blood Count 3.78 M/mm3 (4.2-5.4); White Blood Count 6.5 K/mm3 (4.4-11.0)
[2024-02-29 16:25] VITALS: BP 148/111; PULSE 81; RESP 20; O2SAT 97
[2024-02-29] MEDS: Morphine 4 MG/ML Syringe IV (16:34)
[2024-02-29] MEDS: Ondansetron 4 MG/2 ML Vial IV ×2 (16:34→20:58)
[2024-02-29 16:36] LABS: ALB/GLOB Ratio 1.1 RATIO (0.9-2.4); AST(SGOT) 17 U/L (15-37); Alanine Aminotransfer ALT/SGPT 16 U/L (13-56); Albumin, Serum 3.6 g/dL (3.2-5.0); Alkaline Phosphatase 82 U/L (45-117); Anion Gap 4 (5-15); BUN 30 mg/dL (7-18); BUN/Creat Ratio 18.6 RATIO (10-20); Calcium,Total 9.2 mg/dL (8.5-10.1); Chloride 109 mmol/L (98-107); Creatinine, Serum 1.61 mg/dL (0.55-1.02); EST Glomerular Filtration Rate 32 mL/min (>60); Est Glom Filt Rate - Afr Amer 39 mL/min (>60); Estimated Creatinine Clearance 19.78 ml/min; Globulin 3.4 g/dL (2.2-4.2); Glucose 117 mg/dL (74-106); Lipase 141 U/L (13-75); Potassium 4.4 mmol/L (3.5-5.1); Sodium Level 141 mmol/L (136-145)
[2024-02-29 17:00] VITALS: BP 128/66; PULSE 66; RESP 18; O2SAT 99
[2024-02-29 18:00] VITALS: BP 125/100; PULSE 69; RESP 17; O2SAT 99
[2024-02-29 18:21] LABS: Mucous, Urine 0 SEEN /hpf (<or=2+); Red Blood Cells-Urine 0 SEEN /hpf (0-5)
[2024-02-29 18:24] LABS: Color, Urine Yellow (Yellow); Glucose, Dipstick Normal (Normal); Ketone-Dipstick Negative (Negative); Leukocyte Esterase-Dipstick 100 /ul (Negative); Nitrite-Dipstick Negative (Negative); Occult Blood-Urine Negative /ul (Negative); Protein-Dipstick 15 mg/dl (Negative); Specific Gravity, Urine 1.005 (1.002-1.030); Urine Bilirubin Dipstick Negative (Negative); Urine Clarity Sl. Cloudy (Clear); Urine Urobilinogen Normal (Normal)
[2024-02-29 18:30] LABS: Bacteria RARE /hpf (None Seen); Squamous Epithelial Cells - UA 0-5 SEEN /hpf (5-10); White Blood Cells 5-10 SEEN /hpf (0-5)
[2024-02-29 19:08] VITALS: BP 125/100; PULSE 76; RESP 18; TEMP 36.4; O2SAT 97
--- NOTE | 2024-02-29 19:09 | PCM.HP.STD ---
HPI - General HPI Narrative TRUPTI BARCLAY, is a 88 F who presents with epigastric pain that started at 3 AM. The patient reports nausea but no vomiting. She says that she is feeling better at this point but she was also given morphine. She denies fevers or chills. Denies any other abdominal pain. 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) Vitamin D deficiency Carotid aneurysm, left Essential hypertension Disequilibrium Impaired ambulation Lightheaded Bladder cancer History of ETOH abuse Hypercalcemia Family hx of colon cancer Microscopic hematuria Acute renal failure Normochromic normocytic anemia History of sciatica Home Medications ?Medication ?Instructions ?Recorded ?Last Taken ?Type folic acid 1 mg tablet 0.5 mg (1/2 x 1 mg) PO DAILY@0800 07//11/17/23 Rx #30 tabs cholecalciferol (vitamin D3) 125 5,000 unit PO DAILY supplement 03/20/19 11/17/23 History mcg (5,000 unit) capsule aspirin 81 mg chewable tablet 81 mg PO DAILY@0800 ##30 03/21/19 11/17/23 Rx cyanocobalamin (vitamin B-12) 500 1,000 mcg (2 x 500 mcg) PO 03/21/19 11/17/23 Rx mcg tablet DAILY@0800 #60 tabs biotin 5 mg tablet 5 mg PO DAILY 05/13/19 11/17/23 History thiamine HCl (vitamin B1) 100 mg 100 mg PO 4X/DAY 05/13/19 11/17/23 History tablet apixaban 2.5 mg tablet (Eliquis) 2.5 mg PO BID #180 tabs 05/14/19 11/17/23 Rx glucosamine-chondroitin 500 mg-400 1 cap PO TID supplement 09/16/19 11/17/23 History mg capsule amlodipine 10 mg tablet 10 mg PO DAILY #90 tabs 05/27/20 11/17/23 Rx atorvastatin 20 mg tablet 20 mg PO DAILY #90 tabs 06/17/20 11/17/23 Rx clopidogrel 75 mg tablet 75 mg PO DAILY #90 tabs 06/17/20 11/17/23 Rx metoprolol tartrate 50 mg tablet 50 mg PO BID #180 tabs 06/17/20 11/17/23 Rx hydrocodone-acetaminophen 5-325mg 1 tab PO Q4H PRN PRN Pain 3 days 11/03/23 11/17/23 Rx 5mg-325mg #15 TABLETS methylprednisolone 4 mg tablets in See Rx Instructions PO .COMPLEX 11/17/23 Unknown Rx a dose pack (Medrol (Tye)) #21 tabs Allergy/AdvReac Type Severity Reaction Status Date / Time tramadol Allergy Intermediate Nausea Verified 02/29/24 14:24 Family History Mother Colon cancer Surgical History History of bladder surgery Social History Smoking Status: Never smoker alcohol intake: former ROS Constitutional Constitutional: Denies anorexia, chills, fatigue or fever(s) Eyes Eyes: Denies blurry vision ENT HEENT: Denies abnormal hearing Cardiovascular Cardiovascular: Denies chest pain Respiratory/Chest Respiratory/Chest: Denies cough or dyspnea Gastrointestinal Gastrointestinal: Reports abdominal pain and nausea; Denies coffee ground emesis, constipation, diarrhea, rectal bleeding or vomiting Genitourinary Genitourinary: Denies change in urinary stream Musculoskeletal Musculoskeletal: Denies abnormal gait Integumentary Integumentary: Denies jaundice Neurologic Neurologic: Denies dizziness Psychiatric Psychiatric: Denies anxiety Endocrine Endocrinology: Denies flushing Hematologic/Lymphatic Hematologic/Lymphatic: Denies easy bleeding Vital Signs Vital Signs Vital Signs: 02/29/24 14:21 02/29/24 16:25 02/29/24 17:00 Temperature 97.8 F Temperature Source Oral Pulse Rate 85 81 66 Respiratory Rate 16 20 H 18 Blood Pressure 152/88 H 148/111 H 128/66 H Blood Pressure Mean 109 123 86 Pulse Ox 97 97 99 Oxygen Delivery Method Room Air Room Air 02/29/24 18:00 Temperature Temperature Source Pulse Rate 69 Respiratory Rate 17 Blood Pressure 125/100 H Blood Pressure Mean 108 Pulse Ox 99 Oxygen Delivery Method Room Air Weight Weight: 130 lb Body Mass Index (BMI) 25.4 Physical Exam Const oriented x3 and no apparent distress Resp normal respiratory effort Cardio regular rate and regular rhythm GI soft to palpation and non-tender Extremity normal to inspection Results Lab / Micro Data 02/29/24 14:40 02/29/24 14:40 Labs: Laboratory Results - last 24 hr 02/29/24 14:40: WBC 6.5, RBC 3.78 L, Hgb 13.4, Hct 36.8 L, MCV 97.4, MCH 35.4 H, MCHC 36.4 H, RDW Std Deviation 42.7, RDW Coeff of Karol 13.2, Plt Count 209, MPV 11.4, Immature Gran % (Auto) 0.300, Neut % (Auto) 67.7, Lymph % (Auto) 18.9 L, [place] % (Auto) 10.2 H, Eos % (Auto) 2.0, Baso % (Auto) 0.9, Absolute Neuts (auto) 4.4, Absolute Lymphs (auto) 1.22, Nucleated RBC % 0, Sodium 141, Potassium 4.4, Chloride 109 H, Carbon Dioxide 27.0, Anion Gap 4 L, BUN 30 H, Creatinine 1.61 H, Estim Creat Clear Calc 19.78, Est GFR (MDRD) Af Amer 39 L, Est GFR (MDRD) Non-Af 32 L, BUN/Creatinine Ratio 18.6, Glucose 117 H, Calcium 9.2, Total Bilirubin 0.40, AST 17, ALT 16, Alkaline Phosphatase 82, Total Protein 7.0, Albumin 3.6, Globulin 3.4, Albumin/Globulin Ratio 1.1, Lipase 141 H 02/29/24 18:15: Urine Color Yellow, Urine Clarity Sl. Cloudy, Urine pH 7.0, Ur Specific [place] 1.005, Urine Protein 15 H, Urine Glucose (UA) Normal, Urine Ketones Negative, Urine Occult Blood Negative, Urine Nitrite Negative, Urine Bilirubin Negative, Urine Urobilinogen Normal, Ur Leukocyte Esterase 100 H, Urine RBC 0 SEEN, Urine WBC 5-10 SEEN, Ur Squamous Epith Cells 0-5 SEEN, Urine Bacteria RARE, Urine Mucus 0 SEEN Imaging Radiology Impression Abdomen/Pelvis CT 02/29/24 16:00 IMPRESSION: Acute sigmoid diverticulitis. No focal fluid collection or free air. Recommend colonoscopy after acute infection has resolved to rule out underlying malignancy. 4 mm stone in the cystic duct. Consider right upper quadrant ultrasound to assess for acute cholecystitis. Mild intra and extra hepatic biliary ductal dilatation. Consider MRCP to assess for choledocholithiasis. Electronically Signed: Michael Souza MD at 17:23 EDT , Assessment & Plan Assessment/Plan (1) Acute cholecystitis: PLAN: The patient is being observed for possible acute cholecystitis. The patient had a CT scan which showed a small stone in the cystic duct. There was no stranding around the gallbladder and the currently the patient is having no pain but she did receive morphine recently. Her white count is normal. I will observe her and start her on antibiotics and recheck labs in the morning. I will start her on clear liquids. If she is able to tolerated diet and may discharge her home and have her come back for elective surgery but if she worsens or has ongoing pain I will admit her for the weekend and perform laparoscopic cholecystectomy this week Hima Carr MD Pager: [facility] [address] [place] [address], [address] [place] [address] Office:
[2024-02-29] MEDS: Piperacil/Tazobactam 4.5 GM in 0.9% Normal Saline (100mL MB+) 100 ML IV (19:24)
[2024-02-29 20:08] VITALS: BP 103/63; PULSE 72; RESP 18; TEMP 36.8; O2SAT 96
[2024-02-29 20:13] VITALS: BMI 23.6
[2024-02-29] MEDS: 0.9% Saline Lock 10 ML Syringe IV (20:58)
[2024-03-01 03:04] VITALS: BP 93/59; PULSE 63; RESP 18; TEMP 36.7; O2SAT 97
[2024-03-01 07:19] LABS: Absolute Lymphocyte Count 0.97 X10^3/uL (0.83-4.51); Absolute Neutrophil Count 4.3 X10^3/uL (2.0-7.7); Basophil# 0.04 X10^3/uL; Basophil% 0.7 % (0-1); Eosinophil# 0.14 X10^3/uL; Eosinophils% 2.3 % (0-5); Hematocrit 33.1 % (37-47); Hemoglobin 11.7 g/dL (12.0-15.0); Lymphocyte # 0.97 X10^3/ul (0.83-4.51); Lymphocyte % 15.8 % (19-41); Mean Corp Hgb Conc 35.3 g/dL (32-36); Mean Corpuscular Hgb 34.5 pg (27.0-32.0); Mean Corpuscular Volume 97.6 fL (81-99); Mean Platelet Vol. 10.6 fl (6.2-12.0); Monocyte# 0.68 X10^3/uL; Monocyte% 11.1 % (0-10); NRBC Flagged by Analyzer 0 % (0-5); Neutrophil # 4.29 X10^3/uL (2.7-7.7); Neutrophil % 69.8 % (47-70); Platelet Count 176 K/mm3 (150-450); RBC Distribution Width CV 12.4 % (11.6-14.6); RBC Distribution Width SD 42.6 fl (35.1-43.9); Red Blood Count 3.39 M/mm3 (4.2-5.4); White Blood Count 6.1 K/mm3 (4.4-11.0)
[2024-03-01 07:28] LABS: ALB/GLOB Ratio 1.1 RATIO (0.9-2.4); AST(SGOT) 27 U/L (15-37); Alanine Aminotransfer ALT/SGPT 22 U/L (13-56); Albumin, Serum 3.1 g/dL (3.2-5.0); Alkaline Phosphatase 69 U/L (45-117); Anion Gap 6 (5-15); BUN 26 mg/dL (7-18); BUN/Creat Ratio 15.9 RATIO (10-20); Calcium,Total 8.9 mg/dL (8.5-10.1); Chloride 113 mmol/L (98-107); Creatinine, Serum 1.64 mg/dL (0.55-1.02); EST Glomerular Filtration Rate 32 mL/min (>60); Est Glom Filt Rate - Afr Amer 38 mL/min (>60); Estimated Creatinine Clearance 17.36 ml/min; Globulin 2.8 g/dL (2.2-4.2); Glucose 99 mg/dL (74-106); Protein, Total 5.9 g/dL (6.4-8.2); Sodium Level 141 mmol/L (136-145)
--- NOTE | 2024-03-01 08:31 | PN.SURG_ITS ---
Subjective Subjective Patient reports no abdominal pain this morning and she has not had any pain medication. She denies any nausea or vomiting. She tolerated clear liquids overnight with no issue. Objective Data Objective Data Vital Signs: Vital Signs Temp Pulse Resp BP Pulse Ox O2 Del Method 98.1 F 63 18 93/59 L 97 Room Air 03/01/24 03:04 03/01/24 03:04 03/01/24 03:04 03/01/24 03:04 03/01/24 03:04 03/01/24 03:04 Oxygen Delivery Method Room Air Weight: 120 lb 2.431 oz Body Mass Index (BMI) 23.6 Intake & Output: Intake and Output for Last 24 Hours 02/28/24 02/29/24 03/01/24 23:59 23:59 23:59 Intake Total 100 / 100 300 / 300 Balance 100 / 100 300 / 300 Lab / Micro Data 03/01/24 06:00 03/01/24 06:00 Labs: Laboratory Results - last 24 hr 02/29/24 14:40: WBC 6.5, RBC 3.78 L, Hgb 13.4, Hct 36.8 L, MCV 97.4, MCH 35.4 H, MCHC 36.4 H, RDW Std Deviation 42.7, RDW Coeff of Karol 13.2, Plt Count 209, MPV 11.4, Immature Gran % (Auto) 0.300, Neut % (Auto) 67.7, Lymph % (Auto) 18.9 L, M rod % (Auto) 10.2 H, Eos % (Auto) 2.0, Baso % (Auto) 0.9, Absolute Neuts (auto) 4.4, Absolute Lymphs (auto) 1.22, Nucleated RBC % 0, Sodium 141, Potassium 4.4, Chloride 109 H, Carbon Dioxide 27.0, Anion Gap 4 L, BUN 30 H, Creatinine 1.61 H, Estim Creat Clear Calc 19.78, Est GFR (MDRD) Af Amer 39 L, Est GFR (MDRD) Non-Af 32 L, BUN/Creatinine Ratio 18.6, Glucose 117 H, Calcium 9.2, Total Bilirubin 0.40, AST 17, ALT 16, Alkaline Phosphatase 82, Total Protein 7.0, Albumin 3.6, Globulin 3.4, Albumin/Globulin Ratio 1.1, Lipase 141 H 02/29/24 18:15: Urine Color Yellow, Urine Clarity Sl. Cloudy, Urine pH 7.0, Ur Specific [place] 1.005, Urine Protein 15 H, Urine Glucose (UA) Normal, Urine Ketones Negative, Urine Occult Blood Negative, Urine Nitrite Negative, Urine Bilirubin Negative, Urine Urobilinogen Normal, Ur Leukocyte Esterase 100 H, Urine RBC 0 SEEN, Urine WBC 5-10 SEEN, Ur Squamous Epith Cells 0-5 SEEN, Urine Bacteria RARE, Urine Mucus 0 SEEN 03/01/24 06:00: WBC 6.1, RBC 3.39 L, Hgb 11.7 L, Hct 33.1 L, MCV 97.6, MCH 34.5 H, MCHC 35.3, RDW Std Deviation 42.6, RDW Coeff of Karol 12.4, Plt Count 176, MPV 10.6, Immature Gran % (Auto) 0.300, Neut % (Auto) 69.8, Lymph % (Auto) 15.8 L, M rod % (Auto) 11.1 H, Eos % (Auto) 2.3, Baso % (Auto) 0.7, Absolute Neuts (auto) 4.3, Absolute Lymphs (auto) 0.97, Nucleated RBC % 0, Sodium 141, Potassium 4.0, Chloride 113 H, Carbon Dioxide 22.0, Anion Gap 6, BUN 26 H, Creatinine 1.64 H, Estim Creat Clear Calc 17.36, Est GFR (MDRD) Af Amer 38 L, Est GFR (MDRD) Non-Af 32 L, BUN/Creatinine Ratio 15.9, Glucose 99, Calcium 8.9, Total Bilirubin 0.70, AST 27, ALT 22, Alkaline Phosphatase 69, Total Protein 5.9 L, Albumin 3.1 L, Globulin 2.8, Albumin/Globulin Ratio 1.1 Radiography Diagnostic Testing: Radiology Impression Abdomen/Pelvis CT 02/29/24 16:00 IMPRESSION: Acute sigmoid diverticulitis. No focal fluid collection or free air. Recommend colonoscopy after acute infection has resolved to rule out underlying malignancy. 4 mm stone in the cystic duct. Consider right upper quadrant ultrasound to assess for acute cholecystitis. Mild intra and extra hepatic biliary ductal dilatation. Consider MRCP to assess for choledocholithiasis. Electronically Signed: Michael Souza MD at 17:23 EDT , Physical Exam Const oriented x3 and no apparent distress Resp normal respiratory effort GI soft to palpation and non-tender Assessment & Plan Assessment/Plan (1) Acute cholecystitis: PLAN: I do not believe the patient has acute cholecystitis as her white count is normal again and she has not had any pain medication and has absolutely no abdominal pain. She may be having biliary colic due to that stone and I do recommend that she had laparoscopic cholecystectomy but I believe we can do this as an outpatient if she can tolerate a regular diet. She is agreeable to this plan as well. As long as she tolerates regular diet this morning I will discharge her home this afternoon and have her come back for elective cholecystectomy in the near future. Hima Carr MD Pager: [facility] [address] [place] [address], [address] [place] [address] Office:
[2024-03-01 09:16] VITALS: BP 107/66; PULSE 77; RESP 16; TEMP 36.6; O2SAT 96
[2024-03-01] MEDS: Piperacil/Tazobactam 3.375 GM in 0.9% Normal Saline (50mL MB+) 50 ML IV (09:22)
[2024-03-01] MEDS: 0.9% Saline Lock 10 ML Syringe IV (09:22)
--- NOTE | 2024-03-01 09:47 | CASEMGMT ---
RN?CM?DRIVER RECRUITER?CM?to room to meet with patient for initial transition planning/care coordination?assessment.?RN?CM?introduced self and role at [facility].? Pt voices understanding and consents to?assessment?at this time.? Pt resting in bed in no distress at this time.? Pt is A/O at this time and answers all questions appropriately.?? Care providers, pharmacy, and demographics verified/updated at this time. PCP: Dr Duque Specialists: denies Preferred Pharmacy: [facility] Insurance: [facility] [facility] [place] Pres[place] Benefit:?yes LNOK: 2 daughters, Zuri and Gris Living Arrangements: Lives alone in one-story home w/basement, but states seldom goes to the basement. Laundry is on the main floor. No steps to enter home. Pt reports being independent w/ADL's. Pt states she is able to cook/prepare her own meals. Dtr, Zuri, usually gets the groceries. Hires a cleaning lady that comes weekly, who also will get groceries if needed. Transportation:?Pt states drives self and states no transportation concerns at this time.?Dtr, Zuri, will take her home @ discharge. DME: ? Denies using any DME to ambulate. She does have a cane and walker, but does not use them. She has a medical alert button. She denies having other DME needs. She stands to shower. 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 No hx of HHC. Pt declines need for HHC or CCN. She states she manages her own medications and feels she does well with them. She states, if she would need help, her daughter, Zuri, would assist her. She feels safe to discharge home alone, and states, if needed/if she wanted her to, Zuri would stay the night. Discussed OP therapy and she denies need of this as well. She was made aware, if she changes her mind, to discuss w/her PCP. She voices understanding. Noted in nursing handoff pt was a 2 assist. Per Loida MARTIN, pt was up w/assist of one today. 6 clicks pending. Pt wishes to return home and states has no concerns with going home at time of discharge.? Advised pt to ask for?CM?if any further questions/concerns/needs arise.? Voices understanding. PLAN:??Home Emelina BSN?RN?CM
--- NOTE | 2024-03-01 14:05 | PCM.DC ---
Discharge Instructions Diet Discharge Diet: [place] diet (low fat diet) Activity Discharge Activity: Return to Normal Activity, May Drive and May Shower Weight Bearing Status: Weight bearing as tolerated Dressing / Incision Call your doctor if your incision/area has: Increased Pain/ Swelling Call your doctor if you observe: Fever of 101 or Higher Follow Up Care Please Follow Up With: Hima Carr MD When: My office will call sunday to schedule surgery Test Results: Test results from this visit will be discussed in further detail at your follow-up appointment, if applicable. Discharge Plan Admission Admit Date/Time: 02/29/24 19:07 Attending Provider: Hima Carr Primary Care Provider: Kezia Duque Discharge Orders/Prescriptions Prescriptions: Continued Eliquis 2.5 mg tablet 2.5 mg PO BID Qty: 180 3RF biotin 5 mg tablet 5 mg PO DAILY folic acid 1 MG tablet 0.5 mg PO DAILY@0800 Qty: 30 0RF Patient Comments: supplement cholecalciferol (vitamin D3) 5,000 UNIT capsule 5,000 unit PO DAILY aspirin 81 MG tablet,chewable 81 mg PO DAILY@0800 Qty: 30 0RF cyanocobalamin (vitamin B-12) 500 MCG tablet 1,000 mcg PO DAILY@0800 Qty: 60 0RF thiamine HCl (vitamin B1) 100 mg tablet 100 mg PO 4X/DAY Patient Comments: supplement glucosamine-chondroitin 500-400 mg capsule 1 cap PO TID hydrocodone-acetaminophen 5-325 mg tablet 1 tab PO Q4H PRN PRN (Reason: Pain) 3 Days Qty: 15 0RF amlodipine 10 mg tablet 10 mg PO DAILY Qty: 90 3RF Patient Comments: blood pressure atorvastatin 20 mg tablet 20 mg PO DAILY Qty: 90 3RF clopidogrel 75 mg tablet 75 mg PO DAILY Qty: 90 3RF metoprolol tartrate 50 mg tablet 50 mg PO BID Qty: 180 3RF Patient Comments: blood pressure Referrals / Follow Up: Kezia Duque MD [Primary Care Provider] - Disposition Disposition (needs filled in before D/C Order can be placed): Home, Self Care
[2024-03-01 14:29] VITALS: BP 115/75; PULSE 65; RESP 16; TEMP 36.6; O2SAT 95
== END 2024-03-01 14:50 | disposition home or self-care (01) ==
LOC: ED 19:08 → MS3 19:37
PROVIDERS: Admitting Provider Surgery; Emergency Provider Emergency Medicine; PCP Internal Medicine; Visit Provider Surgery
DX: K81.0 Acute cholecystitis (principal); N18.4 Chronic kidney disease, stage 4 (severe); I27.21 Secondary pulmonary arterial hypertension; I48.0 Paroxysmal atrial fibrillation; K57.32 Diverticulitis of large intestine without perforation or abscess without bleeding; I12.9 Hypertensive chronic kidney disease with stage 1 through stage 4 chronic kidney disease, or unspecified chronic kidney disease; Z79.02 Long term (current) use of antithrombotics/antiplatelets; Z79.01 Long term (current) use of anticoagulants; Z79.82 Long term (current) use of aspirin; Z79.899 Other long term (current) drug therapy
CPT/HCPCS: 36415; 74177; 80053; 81001; 83690; 85025; 93005; 96365; 96366; 96375; 96376; 97802; 99221; 99283; Q9967; A4216; G0378; J2405

== ENCOUNTER 2024-03-10 08:52 | Day surgery (SDC) | payer MEDICARE, SELFPAY ==
--- NOTE | 2024-03-07 09:26 | EKG12_ITS ---
Test Reason : PRE OP Blood Pressure : / mmHG Vent. Rate : 081 BPM Atrial Rate : 081 BPM P-R Int : 182 ms QRS Dur : 074 ms QT Int : 356 ms P-R-T Axes : 053 -05 064 degrees QTc Int : 413 ms Sinus rhythm with occasional Premature ventricular complexes and Premature atrial complexes Nonspecific ST abnormality Abnormal ECG Confirmed by CL MACHADO, WILLY ([id number]), offline editor ROSA VELAZQUEZ ([id number]) on 03/07/2024 1:17:28 PM Referred By: Hima Carr Confirmed By:WILLY SMALLWOOD MD
[2024-03-10] VITALS (12 sets, daily range): BP systolic 130–177; BP diastolic 65–115; PULSE 78–105; RESP 16–18; TEMP 36.1–36.5; O2SAT 93–100; BMI 23.2
--- NOTE | 2024-03-10 09:14 | PCM.PRE.AN2 ---
ASA Classification* ASA Classification ASA Classification: 3 Assessment & Plan Anesthesia* Anesthesia Assessment Anesthesia Assessment: Discussed sedation and/or anesthesia options, risks, benefits, and alternatives with patient/parents/legal guardian/POA. Questions invited. The patient/parents/legal guardian/POA seems to understand and agrees to proceed with anesthesia plan. Reviewed the physical assessment, medical history, allergy history and patient home medications list prior to surgery/procedure/anesthetic and documented any changes. Performed airway and anesthesia risk assessments. Anesthesia Type Anesthesia Type: General Anesthesia Focused Assessment* Airway Assessment Mouth opens: >3 cm Mallampati Score: II Focused Labs Anesthesia Preop lab: CBC WBC 6.1 K/mm3 (4.4-11.0) 03/01/24 06:00 RBC 3.39 M/mm3 (4.2-5.4) L 03/01/24 06:00 Hgb 11.7 g/dL (12.0-15.0) L 03/01/24 06:00 Hct 33.1 % (37-47) L 03/01/24 06:00 Plt Count 176 K/mm3 (150-450) 03/01/24 06:00 CHEMISTRY Potassium 4.0 mmol/L (3.5-5.1) 03/01/24 06:00 Sodium 141 mmol/L (136-145) 03/01/24 06:00 Magnesium 1.8 mg/dL (1.8-2.4) 11/25/14 05:25 Phosphorus 2.1 mg/dL (2.5-4.9) L 11/25/14 05:25 BUN 26 mg/dL (7-18) H 03/01/24 06:00 Creatinine 1.64 mg/dL (0.55-1.02) H 03/01/24 06:00 Glucose 99 mg/dL (74-106) 03/01/24 06:00 POC Glucose 102 mg/dL (70-110) 11/27/14 05:52 TSH 4.32 uIU/mL (0.358-3.74) H 03/20/19 06:25 COAG PT 12.7 SECONDS (11.7-14.9) 03/19/19 18:44 Pre-Assessment Diagnosis/Proposed Procedure Planned Operative Procedure(s): Laparoscopic, Cholecystectomy with IOC Anesthesia History Anesthesia History - privacy specialist: Anesthesia History - privacy specialist Hx Hospitalization No 03/04/24 14:58 Any Problems With Anesthesia No 03/04/24 14:58 Cholinesterase deficiency No 03/04/24 14:58 You/Your Family Experience No 03/04/24 14:58 fever (hyperthermia) with Relationship Recent Exposure to Contagious No 02/29/24 20:36 Disease Does patient have nerve No 03/04/24 14:58 stimulator Patient instructed to have device shut off --Does patient have Pacemaker or ICD? When Was Last Pacemaker Check QUESTION #4 FULL TEXT: You/Your Family Experience fever (hyperthermia) with Anesthesia Last Oral Intake Last Oral intake: Last Oral Intake NPO since Meds taken in AM with sips of water? Meds patient instructed to take am of surgery PONV PONV - privacy specialist: PONV - privacy specialist Female Yes 03/04/24 14:58 HX of Motion Sickness No 03/04/24 14:58 HX of N/V After Surgery No 03/04/24 14:58 Non-Smoker Yes 03/04/24 14:58 Duration of Surgery greater Yes 03/04/24 14:58 than 60 minutes Number of Risk Factors 3 03/04/24 14:58 PONV Score Moderate Risk 03/04/24 14:58 Height & Weight Height & Weight: Anesthesia: Height & Weight Height 4 ft 11.84 in 03/01/24 13:13 Respiratory Assessment Respiratory Assessment - privacy specialist: Respiratory Tract Infection Hx - privacy specialist Hx Respiratory Tract Infection No 03/04/24 14:58 STOP Sleep Apnea STOP Sleep Apnea - privacy specialist: STOP Sleep Apnea - privacy specialist Hx Hypertension No 03/04/24 14:58 Hx Sleep Apnea No 03/04/24 14:58 CPAP No 03/04/24 14:58 BIPAP No 03/04/24 14:58 Do you snore loudly (louder No 03/04/24 14:58 than talking or can be heard Do you often feel tired/ No 03/04/24 14:58 fatigued/ sleepy during daytime? Has anyone observed you stop No 03/04/24 14:58 breathing during sleep? STOP Results Negative 03/04/24 14:58 QUESTION #5 FULL TEXT : Do you snore loudly (louder than talking or can be heard through closed doors)? Tobacco Use History Tobacco Use History - privacy specialist: Tobacco Use History - privacy specialist Tobacco Use Smoking Status Never smoker 03/04/24 14:58 Hx Tobacco Use No 03/04/24 14:58 Years Smoking Packs Smoked per Day Smoking Cessation Date was within the last 15 years Hx Smoking Cessation Date Hx Smoking Cessation No 03/04/24 14:58 Counseling Hematologic Medial History Hematologic Hx - privacy specialist: Hematologic Medical Hx - occup ther Hx of Blood Transfusion No 03/04/24 14:58 Hx of Transfusion in last 3 No 03/04/24 14:58 Months Date of Last Transfusion (if within last 3 months) Ever experience any problems No 03/04/24 14:58 with transfusion(s)? Specify any problems Hx of Preganancy in last 3 No 03/04/24 14:58 Months Nurse Filling Out Transfusion VCHRISTIN 03/04/24 14:58 & Questions: Date: 03/04/24 03/04/24 14:58 Time: 14:59 03/04/24 14:58 Patient unable to answer at this time (ie. confused, unrespo /Reproduction History /Reproductive History - privacy specialist: /Reproductive Hx- privacy specialist Hx Now No 03/04/24 14:58 Gestational Age (in weeks): EDC: Hx Hx Para Hx Section SAB No 03/04/24 14:58 Active Medications Active Medications: Current Medications Generic Name Dose Route Start Last Admin Trade Name Freq PRN Reason Stop Dose Admin Cefotetan Disodium 2 gm/ 100 mls @ 200 mls/hr 03/10/24 10:35 Sodium Chloride IV 03/10/24 11:04 PREOP ONE Lactated Ringer's 1,000 mls @ 15 mls/hr 03/10/24 09:15 IV 03/13/24 03:54 .Q48H [facility] Protocol PFSH Medical History Wears dentures Arthritis Anemia TIA (transient ischemic attack) Stroke/cerebrovascular accident Non-smoker History of echocardiogram Cardiology follow-up encounter History of atrial fibrillation Chronic neck pain Secondary pulmonary arterial hypertension Paroxysmal atrial fibrillation Hypertensive kidney disease with chronic kidney disease stage IV 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) Vitamin D deficiency Carotid aneurysm, left Essential hypertension Disequilibrium Impaired ambulation Lightheaded Bladder cancer History of ETOH abuse Hypercalcemia Family hx of colon cancer Microscopic hematuria Acute renal failure Normochromic normocytic anemia History of sciatica Home Medications ?Medication ?Instructions ?Recorded ?Last Taken ?Type acetaminophen 500 mg tablet 1,000 mg PO Q6H PRN pain 03/04/24 Unknown History (Acetaminophen Extra Strength) Allergy/AdvReac Type Severity Reaction Status Date / Time tramadol Allergy Intermediate Nausea Verified 03/04/24 14:44 Family History Mother Colon cancer Surgical History History of bladder surgery Social History Smoking Status: Never smoker alcohol intake: former Review of Systems (Anesthesia) ROS Narrative System reviewed and no additional complaints, except as documented.
[2024-03-10] MEDS: Lactated Ringers 1,000 ML 15 ML IV (09:28)
--- NOTE | 2024-03-10 09:37 | HP.PCM_ITS ---
History and Physical Date of Admission: 03/10/24 HPI - General HPI Narrative TRUPTI BARCLAY, is a 88 F who presents with epigastric pain that started at 3 AM. The patient reports nausea but no vomiting. She says that she is feeling better at this point but she was also given morphine. She denies fevers or chills. Denies any other abdominal pain. 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) Vitamin D deficiency Carotid aneurysm, left Essential hypertension Disequilibrium Impaired ambulation Lightheaded Bladder cancer History of ETOH abuse Hypercalcemia Family hx of colon cancer Microscopic hematuria Acute renal failure Normochromic normocytic anemia History of sciatica Home Medications ?Medication ?Instructions ?Recorded ?Last Taken ?Type folic acid 1 mg tablet 0.5 mg (1/2 x 1 mg) PO DAILY@0800 11/29/14 11/17/23 Rx #30 tabs cholecalciferol (vitamin D3) 125 5,000 unit PO DAILY supplement 03/20/19 11/17/23 History mcg (5,000 unit) capsule aspirin 81 mg chewable tablet 81 mg PO DAILY@0800 ##30 03/21/19 11/17/23 Rx cyanocobalamin (vitamin B-12) 500 1,000 mcg (2 x 500 mcg) PO 03/21/19 11/17/23 R x mcg tablet DAILY@0800 #60 tabs biotin 5 mg tablet 5 mg PO DAILY 05/13/19 11/17/23 History thiamine HCl (vitamin B1) 100 mg 100 mg PO 4X/DAY 05/13/19 11/17/23 History tablet apixaban 2.5 mg tablet (Eliquis) 2.5 mg PO BID #180 tabs 05/14/19 11/17/23 Rx glucosamine-chondroitin 500 mg-400 1 cap PO TID supplement 09/16/19 11/17/23 His tory mg capsule amlodipine 10 mg tablet 10 mg PO DAILY #90 tabs 05/27/20 11/17/23 Rx atorvastatin 20 mg tablet 20 mg PO DAILY #90 tabs 06/17/20 11/17/23 Rx clopidogrel 75 mg tablet 75 mg PO DAILY #90 tabs 06/17/20 11/17/23 Rx metoprolol tartrate 50 mg tablet 50 mg PO BID #180 tabs 06/17/20 11/17/23 Rx hydrocodone-acetaminophen 5-325mg 1 tab PO Q4H PRN PRN Pain 3 days 11/03/23 11/17/23 Rx 5mg-325mg #15 TABLETS methylprednisolone 4 mg tablets in See Rx Instructions PO .COMPLEX 11/17/23 Unknown Rx a dose pack (Medrol (Tye)) #21 tabs Allergy/AdvReac Type Severity Reaction Status Date / Time tramadol Allergy Intermediate Nausea Verified 02/29/24 14:24 Family History Mother Colon cancer Surgical History History of bladder surgery Social History Smoking Status: Never smoker alcohol intake: former ROS Constitutional Constitutional: Denies anorexia, chills, fatigue or fever(s) Eyes Eyes: Denies blurry vision ENT HEENT: Denies abnormal hearing Cardiovascular Cardiovascular: Denies chest pain Respiratory/Chest Respiratory/Chest: Denies cough or dyspnea Gastrointestinal Gastrointestinal: Reports abdominal pain and nausea; Denies coffee ground emesis, constipation, diarrhea, rectal bleeding or vomiting Genitourinary Genitourinary: Denies change in urinary stream Musculoskeletal Musculoskeletal: Denies abnormal gait Integumentary Integumentary: Denies jaundice Neurologic Neurologic: Denies dizziness Psychiatric Psychiatric: Denies anxiety Endocrine Endocrinology: Denies flushing Hematologic/Lymphatic Hematologic/Lymphatic: Denies easy bleeding Vital Signs Vital Signs Vital Signs: 02/28/2414:21 02/29/2416:25 02/28/2417:00 Temperature 97.8 F Temperature Source Oral Pulse Rate 85 81 66 Respiratory Rate 16 20 H 18 Blood Pressure 152/88 H 148/111 H 128/66 H Blood Pressure Mean 109 123 86 Pulse Ox 97 97 99 Oxygen Delivery Method Room Air Room Air 02/28/2418:00 Temperature Temperature Source Pulse Rate 69 Respiratory Rate 17 Blood Pressure 125/100 H Blood Pressure Mean 108 Pulse Ox 99 Oxygen Delivery Method Room Air Weight Weight: 130 lb Body Mass Index (BMI) 25.4 Physical Exam Const oriented x3 and no apparent distress Resp normal respiratory effort Cardio regular rate and regular rhythm GI soft to palpation and non-tender Extremity normal to inspection Results Lab / Micro Data 02/29/24 14:40 02/29/24 14:40 Labs: Laboratory Results - last 24 hr 02/29/24 14:40: WBC 6.5, RBC 3.78 L, Hgb 13.4, Hct 36.8 L, MCV 97.4, MCH 35.4 H, MCHC 36.4 H, RDW Std Deviation 42.7, RDW Coeff of Karol 13.2, Plt Count 209, MPV 11.4, Immature Gran % (Auto) 0.300, Neut % (Auto) 67.7, Lymph % (Auto) 18.9 L, Kingfisher % (Auto) 10.2 H, Eos % (Auto) 2.0, Baso % (Auto) 0.9, Absolute Neuts (auto) 4.4, Absolute Lymphs (auto) 1.22, Nucleated RBC % 0, Sodium 141, Potassium 4.4, Chloride 109 H, Carbon Dioxide 27.0, Anion Gap 4 L, BUN 30 H, Creatinine 1.61 H, Estim Creat Clear Calc 19.78, Est GFR (MDRD) Af Amer 39 L, Est GFR (MDRD) Non-Af 32 L, BUN/Creatinine Ratio 18.6, Glucose 117 H, Calcium 9.2, Total Bilirubin 0.40, AST 17, ALT 16, Alkaline Phosphatase 82, Total Protein 7.0, Albumin 3.6, Globulin 3.4, Albumin/Globulin Ratio 1.1, Lipase 141 H 02/29/24 18:15: Urine Color Yellow, Urine Clarity Sl. Cloudy, Urine pH 7.0, Ur Specific [place] 1.005, Urine Protein 15 H, Urine Glucose (UA) Normal, Urine Ketones Negative, Urine Occult Blood Negative, Urine Nitrite Negative, Urine Bilirubin Negative, Urine Urobilinogen Normal, Ur Leukocyte Esterase 100 H, Urine RBC 0 SEEN, Urine WBC 5-10 SEEN, Ur Squamous Epith Cells 0-5 SEEN, Urine Bacteria RARE, Urine Mucus 0 SEEN Imaging Radiology Impression Abdomen/Pelvis CT 02/29/24 16:00 IMPRESSION: Acute sigmoid diverticulitis. No focal fluid collection or free air. Recommend colonoscopy after acute infection has resolved to rule out underlying malignancy. 4 mm stone in the cystic duct. Consider right upper quadrant ultrasound to assess for acute cholecystitis. Mild intra and extra hepatic biliary ductal dilatation. Consider MRCP to assess for choledocholithiasis. Electronically Signed: Michael Souza MD at 17:23 EDT , Assessment & Plan Assessment/Plan (1) Acute cholecystitis: PLAN: The patient is being observed for possible acute cholecystitis. The patient had a CT scan which showed a small stone in the cystic duct. There was no stranding around the gallbladder and the currently the patient is having no pain but she did receive morphine recently. Her white count is normal. I will observe her and start her on antibiotics and recheck labs in the morning. I will start her on clear liquids. If she is able to tolerated diet and may discharge her home and have her come back for elective surgery but if she worsens or has ongoing pain I will admit her for the weekend and perform laparoscopic cholecystectomy this week Hima Carr MD Pager: [facility] [address] [place] [address], [address] [place] [address] Office: I have seen and examined the patient, There are no changes, she has been comfortable for the week and is having no issues. H&P Reviewed.
[2024-03-10] MEDS: Cefotetan 2 GM in 0.9% Normal Saline (100mL MB+) 100 ML IV (10:07)
--- NOTE | 2024-03-10 10:25 | RAD_ITS ---
CLINICAL HISTORY: Female, 88 years old. Abdominal pain PROCEDURE: CHOLANGIOGRAM - intraoperative FLUOROSCOPY TIME (if supplied): (1.8 seconds) minutes/seconds Images obtained: 119. TECHNIQUE: () 1.8 seconds of fluoroscopy of the abdomen was utilized operating RM during an intraoperative cholangiogram and a single sitting a run is submitted for interpretation. FINDINGS: A cannula seen in the cystic duct remnant. Contrast is seen throughout the biliary tree with spillage to the ampulla into the duodenum. No filling defect within the common bile duct to suggest common bile duct stone. RAD/Cholangiogram/ O R,Initial IMPRESSION: No common bile duct stone. Electronically Signed: Steven Villa MD at 14:28 EDT ,
--- NOTE | 2024-03-10 10:35 | GALL_PTH ---
PATIENT: TRUPTI BARCLAY LOC: [facility] [place] U#:[id number] AGE/SX: 88/F ROOM: RE03/10/[address]: Dr. Hima Carr MD : [id number] BED: DIS: 03/10/2024 SPEC #: [id number] RECD: 03/10/24 11:32 STATUS: EDER REWayne #: [id number] ELBA: 03/10/24 10:[address]: Hima Carr DEPT: SURGICAL PATHOLOGY RECD BY: Myrna Stone ENTERED: 03/10/24 13:18 SP TYPE: JOEY WELDON DR: Dr. Kezia Duque MD Tissues: Gallbladder, NOS Procedures: Surgery Specimen Level III HEADER OPERATION: Laparoscopic cholecystectomy with IOC PRE-OP DIAGNOSIS: Acute cholecystitis TISSUE SUBMITTED: Gallbladder MICROSCOPIC DIAGNOSIS Gallbladder, cholecystectomy: Chronic cholecystitis with focal acute cholecystitis. AM. 03/11/2024 MICROSCOPIC DESCRIPTION Slides are reviewed. GROSS DESCRIPTION Received is one container labeled with the patient's name and designated gallbladder. The specimen consists of a gallbladder measuring 7.0 cm in length and up to 3.2 cm in diameter. The external surface is pink-powers, smooth and glistening for the most part. Focally it is granular, hemorrhagic and contains cautery artifact. The gallbladder contains a small amount of green-yellow mucoid bile. No stones are identified in the container or in the gallbladder. The mucosa is bile-stained and without any mass lesions. The gallbladder wall measures up to 0.2 cm in thickness. Card Folder sections from the gallbladder and the cystic duct are submitted in one cassette. / SJ: 03/10/2024 TC:3 CPT: 73495
[2024-03-10] MEDS: Bupiv/Epi 0.25% 30 ML Vial (10:51)
[2024-03-10] MEDS: Sugammadex Sodium 200 MG/2 ML VIAL IV (11:00)
--- NOTE | 2024-03-10 11:12 | PCM.OPRPT ---
Report of Operation Date of Procedure: 03/10/24 Pre-Operative Diagnosis: Cholelithiasis and biliary colic Post-Operative Diagnosis: Same Surgery/Procedure Performed:: Laparoscopic cholecystectomy with cholangiograms Type of Anesthesia: General/Regional Specimen's removed: Gallbladder Estimated Blood Loss (mL): 10 Description of Procedure: After obtaining informed consent patient was brought back to the operating room. General anesthesia was induced. The abdomen was prepped and draped in usual sterile fashion. A small midline incision was made superior to the umbilicus and deepened to the level of fascia. The fascia was elevated and incised. Next the peritoneum was elevated and incised in the same fashion. Finger sweep was performed and the Kumar trocar was placed into the abdomen. The balloon was inflated. The abdomen was inflated to 15 mmHg. Next a camera was introduced into the abdomen and the abdomen was inspected. Next under direct visualization three 5-mm ports were placed one subxiphoid and 2 subcostal. Next the gallbladder was elevated and retracted toward the right shoulder. The peritoneum was stripped from the gallbladder. The infundibulum was located and retracted laterally. Next the triangle of Calot was dissected and the cystic duct and cystic artery were identified. Cholangiograms were performed. The Walton clamp was used to clamp across the infundibulum and the catheter needle was inserted into the gallbladder. Under fluoroscopy contrast was instilled into the gallbladder and the common duct, cystic duct as well as proximal hepatic ducts were identified. There was good filling of the duodenum. There were no filling defects noted in the common bile duct. The clamp was removed as well as the needle and the infundibulum was grasped once more. Three hemolock clips were placed across the cystic duct. The cystic duct was then divided leaving 2 clips on the stump. The cystic artery was clipped and divided in the same fashion. The hook cautery was then used to take the gallbladder off of the gallbladder bed. Hemostasis was obtained. Gallbladder fossa was irrigated and no active bleeding or bile leakage was noted. Next the camera was introduced in the subxiphoid port. An Endopouch bag was placed through the umbilical port and the gallbladder was placed into it. The gallbladder was then removed through the umbilical incision. The camera was then reinserted through the umbilical port. The gallbladder fossa was inspected once more and noted to be hemostatic with no leaking bile. The abdomen was suctioned dry. The 5 mm ports were removed under direct visualization. The umbilical port was then removed and the air was removed from the abdomen. Next using an 0 Vicryl suture the umbilical fascia was closed in a [id number] fashion. The umbilical port site was irrigated local anesthetic was administered to all the incisions. All the incisions were closed with interrupted subcuticular 4-0 Monocryl sutures followed by Steri-Strips and dressings. The patient was awoken and taken to PACU in stable condition. Admit VTE Documentation VTE Mechan Device Prophylaxis: SCD's
--- NOTE | 2024-03-10 11:14 | DCINST_ITS ---
Discharge Instructions Procedure Gallbladder Diet Discharge Diet: Light diet - advance as tolerated Activity Discharge Activity: May Not Drive (for 2-3 days or while taking narcotic pain medications.) and - (Do not drive, work heavy equipment or sign legal documents for 24 hours.) May shower in (days): 1 Lifting Restrictions: 20 lbs for 2 weeks Additional Activity Instructions:: Pain medication may cause nausea. You should typically eat light foods as you take your pain medications. Pain medication may also cause constipation. If this is a problem for you, please discuss with your doctor. Alternate ibuprofen and Tylenol for pain control, oxycodone for breakthrough pain Dressing / Incision Call your doctor if your incision/area has: Continuous Slow Oozing, Sudden Increased Bleeding, Increased Pain/ Swelling, Increased Redness and Foul Smelling Discharge Call your doctor if you observe: Fever of 101 or Higher Suture Line Care: Avoid Pulling/Pushing and Avoid Pinching/Bending Remove Dressing in: 2 days Additional Dressing/Incision Instructions:: Leave operative bandaids on for 2 days. When you remove dressing, leave Steri-Strips on until your follow-up appointment, or until the Steri-Strips fall off on their own. Follow Up Care Please Follow Up With: Hima Carr MD When: Please call to schedule 2 week follow up appointment. [phone] Test Results: Test results from this visit will be discussed in further detail at your follow- up appointment, if applicable. Discharge Plan Admission Attending Provider: Hima Carr Primary Care Provider: Kezia Duque Instructions Print Language: Mexican Discharge Orders/Prescriptions Prescriptions: New oxycodone 5 mg Tablet 5 - 10 mg PO Q4H PRN PRN (Reason: Pain Score 4-10) 5 Days Qty: 10 0RF No Action acetaminophen [Acetaminophen Extra Strength] 500 mg tablet 1,000 mg PO Q6H PRN (Reason: pain) Referrals / Follow Up: Kezia Duque MD [Primary Care Provider] - Disposition Disposition (needs filled in before D/C Order can be placed): Home, Self Care
--- NOTE | 2024-03-10 11:15 | PCM.POST.ANE ---
Anesthesia: Postop Eval I Current Vital Signs Temperature: 97 F Pulse Rate: 88 Blood Pressure: 156/115 (pt cold/shaking- will retake) Respiratory Rate: 16 Pulse Ox: 100 Oxygen Delivery Method: Simple Mask Oxygen Flow Rate (L/min): 6 Assessment Airway patent: Yes Spontaneous unlabored respirations: Yes Mental status: Awake and Calm nausea: No Vomiting: No Anesthesia Complication: No Fluid Hydration Crystalloid volume administer (ml): 900 Total IV fluid infused: 900 Progress Note Anesthesia document: Postop Eval 1 completed: Yes
[2024-03-10] MEDS: Acetaminophen 325 MG Tablet 650 MG PO (13:22)
--- NOTE | 2024-03-10 13:30 | SUR.PHASEII ---
FAMILY GAVE PATIENT 1 OXYCODONE 5MG BY MOUTH FROM HER PRESCRIPTIONS BEFORE I GOT A CHANCE TO BRING ONE INTO HER. I HAD THE FAMILY RIGHT DOWN WHAT TIME THEY GAVE THE MEDICATIONS.
--- NOTE | 2024-03-10 16:44 | POSTOPAN2_ITS ---
Anesthesia Postop Eval I Sum Postop Eval Completion status Anesthesia document: Postop Eval 1 completed: Yes Anesthesia Postop Eval I Summary Anesthesia Postop Eval I Summary: Anesthesia Postop Eval I: Assessment Summary Airway patent Yes 03/10/24 11:16 GOVERNOR [email or web address] Spontaneous unlabored Yes 03/10/24 11:16 GOVERNOR [email or web address] respirations Mental status Awake,Calm 03/10/24 11:16 GOVERNOR [email or web address] nausea No 03/10/24 11:16 GOVERNOR [email or web address] Vomiting No 03/10/24 11:16 GOVERNOR [email or web address] Anesthesia Postop Eval I: Fluid Summary Crystalloid volume administer 900 03/10/24 11:16 GOVERNOR [email or web address].[email or web address] (ml) Colloids volume administered ( ml) Blood Product volume administered (ml) Total IV fluid infused 900 03/10/24 11:16 GOVERNOR [email or web address].[email or web address] Anesthesia Postop Eval I: Summary Notes Anesthesia Complication No 03/10/24 11:16 GOVERNOR [email or web address].[email or web address] Anesthesia Complication Comment: Post-operative progress note Anesthesia: Postop Eval II Evaluation Mental status: Awake and Calm Pain Level: 1 nausea: No Vomiting: No Complications Anesthesia Complication: No
--- NOTE | 2024-03-10 16:44 | PCM.POSTANE2 ---
Anesthesia Postop Eval I Sum Postop Eval Completion status Anesthesia document: Postop Eval 1 completed: Yes Anesthesia Postop Eval I Summary Anesthesia Postop Eval I Summary: Anesthesia Postop Eval I: Assessment Summary Airway patent Yes 03/10/24 11:16 [email or web address] [email or web address] Spontaneous unlabored Yes 03/10/24 11:16 CRANBERRY SORTER.[email or web address] respirations Mental status Awake,Calm 03/10/24 11:16 CRANBERRY [email or web address] nausea No 03/10/24 11:16 CRANBERRY SORTER.[email or web address] Vomiting No 03/10/24 11:16 CRANBERRY [email or web address].[email or web address] Anesthesia Postop Eval I: Fluid Summary Crystalloid volume administer 900 03/10/24 11:16 CRANBERRY [email or web address].[email or web address] (ml) Colloids volume administered ( ml) Blood Product volume administered (ml) Total IV fluid infused 900 03/10/24 11:16 CRANBERRY [email or web address].[email or web address] Anesthesia Postop Eval I: Summary Notes Anesthesia Complication No 03/10/24 11:16 CRANBERRY [email or web address].[email or web address] Anesthesia Complication Comment: Post-operative progress note Anesthesia: Postop Eval II Evaluation Mental status: Awake and Calm Pain Level: 1 nausea: No Vomiting: No Complications Anesthesia Complication: No
== END 2024-03-10 17:35 | disposition home or self-care (01) ==
LOC: SDC 08:53 → AC 08:55
PROVIDERS: PCP Internal Medicine; Referring Provider Surgery; Visit Provider Surgery
PROC: (CPT 47610; principal; 2024-03-10 10:15)
DX: K80.66 Calculus of gallbladder and bile duct with acute and chronic cholecystitis without obstruction (principal); N18.4 Chronic kidney disease, stage 4 (severe); I48.0 Paroxysmal atrial fibrillation; I12.9 Hypertensive chronic kidney disease with stage 1 through stage 4 chronic kidney disease, or unspecified chronic kidney disease; Z79.01 Long term (current) use of anticoagulants; Z79.02 Long term (current) use of antithrombotics/antiplatelets; Z79.82 Long term (current) use of aspirin; Z79.899 Other long term (current) drug therapy; Z86.73 Personal history of transient ischemic attack (TIA), and cerebral infarction without residual deficits; Z80.0 Family history of malignant neoplasm of digestive organs
CPT/HCPCS: 47563; 00790; 74300; 76000; 88304; 93005; J7120; J2405

== ENCOUNTER 2024-05-01 15:19 | Inpatient (IN) | payer MEDICARE, SELFPAY ==
[2024-05-01 15:20] VITALS: BP 145/71; PULSE 62; RESP 16; TEMP 36.6; O2SAT 99; BMI 26.0
--- NOTE | 2024-05-01 15:36 | EKG12_ITS ---
Test Reason : Blood Pressure : */* mmHG Vent. Rate : 67 BPM Atrial Rate : 67 BPM P-R Int : 204 ms QRS Dur : 78 ms QT Int : 430 ms P-R-T Axes : * 10 74 degrees QTcB Int : 454 ms Normal sinus rhythm Normal ECG Confirmed by Flo Camarillo ([id number]), news editor VERNON KWONG ([id number]) on 05/02/2024 1:46:39 PM Referred By: CHRISSY Confirmed By: Flo Camarillo
--- NOTE | 2024-05-01 15:36 | CT_ITS ---
EXAM: CT ABDOMEN AND PELVIS WITH INTRAVENOUS CONTRAST CLINICAL INDICATION: abd pain, n/v TECHNIQUE: Helically acquired images were obtained of the abdomen and pelvis with intravenous contrast. This CT exam was performed using one or more of the following dose reduction techniques: automated exposure control, adjustment of the mA and/or kV according to patient size, and/or use of iterative reconstruction technique. CONTRAST: IV 100mL Isovue-370 RADIATION DOSE: CTDIvol = 28.61 mGy, DLP = 554.87 mGy-cm COMPARISON: 02/29/2024 FINDINGS: LIMITATIONS: Exam limited by patient motion. LOWER THORAX: Fibrotic changes in both lung bases. 8 mm nodule in the posterior left costophrenic angle, also present previously. No cardiomegaly. No significant pericardial effusion. ABDOMEN: LIVER: Normal shape and size of liver. Stable mild intrahepatic bile duct distention. Homogeneous. No focal mass. GALLBLADDER AND BILE DUCTS: Interval cholecystectomy. PANCREAS: Unremarkable. No focal cystic or solid mass. SPLEEN: Unremarkable. Normal size without focal cystic or solid mass. ADRENALS: Unremarkable. No nodules. KIDNEYS AND URETERS: Bilateral small kidneys no larger than 6.8 cm greatest length consistent with chronic renal atrophy. No stones. No hydronephrosis. STOMACH AND BOWEL: Evaluation of the GI tract is limited by absence of oral contrast. Air distended stomach. Stable 3.8 cm duodenal diverticulum. No dilated loops of bowel or evidence for obstruction. Cannot exclude segmental thickening of the antonio of the small or large bowel. Cannot exclude enteritis or colitis. Moderate diffuse fecal retention. Diverticulosis without definite diverticulitis. Appendix within normal limits. PELVIS: APPENDIX: No evidence of acute appendicitis. BLADDER: Unremarkable. REPRODUCTIVE: Atrophic uterus. ABDOMEN and PELVIS: INTRAPERITONEAL SPACE: Unremarkable. No ascites or other fluid collection. No free air. BONES/JOINTS: Moderate levoconvex scoliosis and multilevel degenerative changes. No suspicious lytic or blastic abnormality. SOFT TISSUES: Unremarkable. No discrete abdominal or pelvic wall hernia. VASCULATURE: Heavily calcified aorta with no aneurysm. LYMPH NODES: Unremarkable. No enlarged lymph nodes. CT/Abdomen/Pelvis W IV Cont ONLY IMPRESSION: Limited as above. 1. Moderate to marked diffuse fecal retention. Probable fecal impaction in the rectosigmoid. 2. Diverticulosis without definite diverticulitis. 3. Bilateral chronic renal atrophy. Electronically Signed: Valdemar Lang MD at 18:00 EST ,
[2024-05-01] MEDS: Ondansetron 4 MG/2 ML Vial IV ×2 (15:43→23:17)
[2024-05-01] MEDS: Morphine 2 MG/ML Syringe IV ×2 (15:43→16:51)
[2024-05-01] MEDS: 0.9% Normal Saline (1000mL) 1,000 ML 999 ML IV (15:43)
--- NOTE | 2024-05-01 16:01 | EDS_ITS ---
HPI History of Present Illness Chief Complaint: Abd Pain Narrative Narrative: Patient is a 88-year-old female with past medical history of TIA, paroxysmal atrial fibrillation, hypertension, alcohol abuse, cholecystectomy few months ago who presents to the emergency department chief complaint of abdominal pain nausea vomiting. According to family members at bedside her abdominal pain started earlier today and was in severe pain therefore they brought her here for further evaluation management. They are wondering if she has a bowel obstruction. Patient does agree sick contact and rates her pain a 8 out of 10. 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) Vitamin D deficiency Carotid aneurysm, left Essential hypertension Disequilibrium Impaired ambulation Lightheaded Bladder cancer History of ETOH abuse Hypercalcemia Family hx of colon cancer Microscopic hematuria Acute renal failure Normochromic normocytic anemia History of sciatica Home Medications ?Medication ?Instructions ?Recorded ?Last Taken ?Type Unobtainable 05/01/24 Unknown History Allergy/AdvReac Type Severity Reaction Status Date / Time tramadol Allergy Intermediate Nausea Verified 05/01/24 15:20 Family History Mother Colon cancer Surgical History S/P cholecystectomy History of bladder surgery Social History Smoking Status: Never smoker alcohol intake: former ROS ROS ED ROS Narrative Constitutional: Denies any fevers, chills, headaches, lightness, dizziness Eyes: Denies change in vision double vision blurry vision Cardiovascular: Denies chest pain or palpitations Respiratory: Denies coughing wheezing shortness of breath Abdomen: Complains of abdominal pain nausea vomiting as noted above and for member states that she is unsure when her last bowel movement was : Denies any urinary symptoms Neurological: Denies numbness, weakness, tingling Musculoskeletal: Denies back pain Skin: Denies rashes or lesions EXAM Physical Exam Narrative Exam Narrative: General: Patient lying in bed did appear to be uncomfortable secondary to her abdominal pain and she did vomit during exam Head: Atraumatic, normocephalic Eyes: PERRL body, EOMI blood, no conjunctival injection noted Neck: Soft, supple, trach midline Cardiovascular: Regular rate and rhythm no murmurs gallops rubs noted Respiratory: Clear to auscultation bilaterally Abdomen: Soft, nondistended, diffuse tenderness palpation, no rebound or guarding on exam Extremities: +5/5 strength noted in the bilateral lower extremities Neurological: Patient follow commands knew that she was at [facility] years 2023 Skin: Warm, dry, intact Const Vital Signs: 05/01/24 15:20 05/01/24 17:19 05/01/24 19:00 Temperature 97.8 F Temperature Source Oral Pulse Rate 62 84 78 Respiratory Rate 16 Blood Pressure 145/71 H 146/112 H 148/98 H Blood Pressure Mean 95 123 114 Pulse Ox 99 99 Oxygen Delivery Method Room Air 05/01/24 21:00 05/01/24 21:35 Temperature 97.9 F Temperature Source Pulse Rate 89 89 Respiratory Rate 20 H Blood Pressure 148/101 H 148/101 H Blood Pressure Mean 116 116 Pulse Ox 99 99 Oxygen Delivery Method MDM MDM MDM Narrative Medical decision making narrative: Patient is a 88-year-old female who presents to the emergency department with a chief complaint of abdominal pain nausea vomiting. Patient will have a workup performed here on the differential diagnose includes Melamin to viral gastroenteritis, ACS, bowel obstruction, pancreatitis. Once workup is obtained reviewed she will be reevaluated. Patient be given morphine Zofran and IV fluids. Patient's CBC reviewed and showed no evidence leukocytosis white blood count normal at 8.7, hemoglobin was 13.1, plate count normal at 181. Patient sodium normal at 141, potassium normal 4.1, creatinine was 1.66 she does have underlying chronic kidney disease this appears to be around her baseline. Patient's AST and ALT are 23 and 17 respectively. Patient lipase was noted to be 95, urinalysis reviewed and showed no evidence of infection. Patient CT abdomen pelvis with IV contrast was reviewed and showed moderate to marked diffuse fecal retention probable fecal impaction in the rectosigmoid. Diverticulosis without definitive diverticulitis. Bilateral chronic renal atrophy. Patient has requested multiple doses of nausea medications and pain medications. I attempted to disimpact the patient and then she had a soapsuds enema. After soapsuds enema she had a large fecal material noted that she cannot pass on her own therefore attempted at disimpaction again and a second soapsuds enema. Despite this the patient is still having significant mount abdominal pain and nausea. At this point time patient will require admission for intractable abdominal pain nausea vomiting in the setting of constipation. Will discuss case with hospitalist. Discussed case with hospitalist Dr. Orona who accept patient for admission. He is recommending MiraLAX and lactulose which was ordered. Patient and family member bedside was notified is agreeable this plan all question concerns answered at bedside. Lab Data Labs: Laboratory Results - last 24 hr 05/01/24 05/01/24 15:43 16:44 WBC 8.7 RBC 4.12 L Hgb 13.1 Hct 37.5 MCV 91.0 MCH 31.8 MCHC 34.9 RDW Std Deviation 45.1 H RDW Coeff of Karol 13.8 Plt Count 181 MPV 11.5 Immature Gran % (Auto) 0.500 Neut % (Auto) 79.1 H Lymph % (Auto) 11.9 L [place] % (Auto) 7.6 Eos % (Auto) 0.3 Baso % (Auto) 0.6 Absolute Neuts (auto) 6.9 Absolute Lymphs (auto) 1.04 Nucleated RBC % 0 Sodium 141 Potassium 4.1 Chloride 110 H Carbon Dioxide 23.0 Anion Gap 8 BUN 34 H Creatinine 1.66 H Estim Creat Clear Calc 19.41 Est GFR (MDRD) Af Amer 38 L Est GFR (MDRD) Non-Af 31 L BUN/Creatinine Ratio 20.5 H Glucose 169 H Calcium 9.2 Total Bilirubin 0.60 AST 23 ALT 17 Alkaline Phosphatase 74 Total Protein 6.9 Albumin 3.6 Globulin 3.3 Albumin/Globulin Ratio 1.1 Lipase 95 H Urine Color Yellow Urine Clarity Clear Urine pH 6.5 Ur Specific [place] 1.010 Urine Protein 30 H Urine Glucose (UA) Normal Urine Ketones Negative Urine Occult Blood Negative Urine Nitrite Negative Urine Bilirubin Negative Urine Urobilinogen Normal Ur Leukocyte Esterase Negative Urine RBC 0 SEEN Urine WBC 0 SEEN Ur Squamous Epith Cells 0-5 SEEN Urine Bacteria 0 SEEN Urine Mucus 0 SEEN Radiography Diagnostic Testing: Clinical Impression(s) from Imaging Studies Abdomen/Pelvis CT 05/01/24 15:36 IMPRESSION: Limited as above. 1. Moderate to marked diffuse fecal retention. Probable fecal impaction in the rectosigmoid. 2. Diverticulosis without definite diverticulitis. 3. Bilateral chronic renal atrophy. Electronically Signed: Valdemar Lang MD at 18:00 EST , Discharge Plan Triage Chief Complaint: Abd Pain ED Provider: Javier Paulino Dx/Rx/DC Orders Clinical Impression: Intractable abdominal pain, Intractable vomiting with nausea, Constipation Prescriptions: No Action Unobtainable Primary Care Provider: Kezia Duque Referrals: Kezia Duque MD [Primary Care Provider] - Print Language: Iranian Disposition Disposition: Acute Care [facility]
[2024-05-01 16:06] LABS: Absolute Lymphocyte Count 1.04 X10^3/uL (0.83-4.51); Absolute Neutrophil Count 6.9 X10^3/uL (2.0-7.7); Basophil# 0.05 X10^3/uL; Basophil% 0.6 % (0-1); Eosinophil# 0.03 X10^3/uL; Eosinophils% 0.3 % (0-5); Hematocrit 37.5 % (37-47); Hemoglobin 13.1 g/dL (12.0-15.0); Lymphocyte # 1.04 X10^3/ul (0.83-4.51); Lymphocyte % 11.9 % (19-41); Mean Corp Hgb Conc 34.9 g/dL (32-36); Mean Corpuscular Hgb 31.8 pg (27.0-32.0); Mean Platelet Vol. 11.5 fl (6.2-12.0); Monocyte# 0.66 X10^3/uL; Monocyte% 7.6 % (0-10); NRBC Flagged by Analyzer 0 % (0-5); Neutrophil # 6.91 X10^3/uL (2.7-7.7); Neutrophil % 79.1 % (47-70); Platelet Count 181 K/mm3 (150-450); RBC Distribution Width CV 13.8 % (11.6-14.6); RBC Distribution Width SD 45.1 fl (35.1-43.9); Red Blood Count 4.12 M/mm3 (4.2-5.4); White Blood Count 8.7 K/mm3 (4.4-11.0)
[2024-05-01 16:15] LABS: ALB/GLOB Ratio 1.1 RATIO (0.9-2.4); AST(SGOT) 23 U/L (15-37); Alanine Aminotransfer ALT/SGPT 17 U/L (13-56); Albumin, Serum 3.6 g/dL (3.2-5.0); Alkaline Phosphatase 74 U/L (45-117); Anion Gap 8 (5-15); BUN 34 mg/dL (7-18); BUN/Creat Ratio 20.5 RATIO (10-20); Calcium,Total 9.2 mg/dL (8.5-10.1); Chloride 110 mmol/L (98-107); Creatinine, Serum 1.66 mg/dL (0.55-1.02); EST Glomerular Filtration Rate 31 mL/min (>60); Est Glom Filt Rate - Afr Amer 38 mL/min (>60); Estimated Creatinine Clearance 19.41 ml/min; Globulin 3.3 g/dL (2.2-4.2); Glucose 169 mg/dL (74-106); Lipase 95 U/L (13-75); Potassium 4.1 mmol/L (3.5-5.1); Protein, Total 6.9 g/dL (6.4-8.2); Sodium Level 141 mmol/L (136-145)
[2024-05-01 16:48] LABS: Bacteria 0 SEEN /hpf (None Seen); Mucous, Urine 0 SEEN /hpf (<or=2+); Red Blood Cells-Urine 0 SEEN /hpf (0-5); White Blood Cells 0 SEEN /hpf (0-5)
[2024-05-01 17:16] LABS: Color, Urine Yellow (Yellow); Glucose, Dipstick Normal (Normal); Ketone-Dipstick Negative (Negative); Leukocyte Esterase-Dipstick Negative /ul (Negative); Nitrite-Dipstick Negative (Negative); Occult Blood-Urine Negative /ul (Negative); Protein-Dipstick 30 mg/dl (Negative); Urine Bilirubin Dipstick Negative (Negative); Urine Clarity Clear (Clear); Urine Urobilinogen Normal (Normal); Urine pH 6.5 (5.0 - 8.0)
[2024-05-01 17:19] VITALS: BP 146/112; PULSE 84
[2024-05-01 17:53] LABS: Squamous Epithelial Cells - UA 0-5 SEEN /hpf (5-10)
[2024-05-01] MEDS: Metoclopramide 10 MG/2 ML Vial 5 MG IV ×2 (18:16→21:12)
[2024-05-01 19:00] VITALS: BP 148/98; PULSE 78; O2SAT 99
[2024-05-01 21:00] VITALS: BP 148/101; PULSE 89; O2SAT 99
[2024-05-01] MEDS: Dicyclomine 20 MG/2 ML Vial IM (21:12)
--- NOTE | 2024-05-01 21:32 | PCM.HP.STD ---
[facility] Date of Admission: 05/01/24 Date of Service: 05/01/24 Chief Complaint: Abdominal Pain and Constipation with Nausea and Vomiting. HPI Narrative TRUPTI BARCLAY, is a 88 F with a past medical history of essential hypertension, overweight; with BMI of 26 this admission, history of paroxysmal atrial fibrillation, history of TIA/CVA (2018), history of Left carotid aneurysm, history of secondary pulmonary hypertension, chronic anemia, CKD; stage IV (2014) with subsequent improvement to Stage IIIb, history of bladder cancer; s/p resection (2014), positive family history of colon cancer in her mother, history of diverticulitis, history of alcohol abuse, history of vitamin D deficiency, history of hypercalcemia, chronic disequilibrium with impaired ambulation, listed allergy to tramadol (nausea), OA; with history of sciatica plus chronic neck pain and relatively recently diagnosed acute cholecystitis; s/p laparoscopic cholecystectomy here March 10, [address] Carr of general surgery who presents to [facility] ER complaining of abdominal pain, constipation and nausea with vomiting. Ms. Barclay reports her symptoms began earlier today with a relatively abrupt onset of abdominal pain after patient was unable to have a bowel movement. She describes the pain as cramping and generalized with a severity of ~8/10 with nothing seeming to make the pain better and straining at stool seeming to make it worse. She then developed nausea and vomiting with bilious emesis and her family began to think she was developing a SBO so they had her brought in by EMS for further evaluation and treatment. Patient states she is unsure of when she had her last normal bowel movement. She denies associated fever, chills, headache, changes in vision, chest pain, palpitations, shortness of breath, cough, dysuria, rash, paresthesias or headache. In the ER patient underwent manual disimpaction x 2 followed by soapsuds enema and CT scan of the abdomen pelvis done prior to disimpaction revealing moderate to marked diffuse fecal retention with probable fecal impaction in the rectosigmoid along with diverticulosis without definite diverticulitis and bilateral chronic renal atrophy with patient physically exhausted and still having uncontrolled cramping abdominal pain with ongoing nausea in spite of disimpaction, enema and multiple doses of IV morphine and IV metoclopramide so ER physician called the hospitalist service to have patient admitted to the general medical floor under observation status for a stay that is expected to be less than 2 midnights. 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) Vitamin D deficiency Carotid aneurysm, left Essential hypertension Disequilibrium Impaired ambulation Lightheaded Bladder cancer History of ETOH abuse Hypercalcemia Family hx of colon cancer Microscopic hematuria Acute renal failure Normochromic normocytic anemia History of sciatica Home Medications ?Medication ?Instructions ?Recorded ?Last Taken ?Type NK 05/01/24 Unknown History Allergy/AdvReac Type Severity Reaction Status Date / Time tramadol Allergy Intermediate Nausea Verified 05/01/24 15:20 Family History Mother Colon cancer Surgical History S/P cholecystectomy History of bladder surgery Social History Smoking Status: Never smoker alcohol intake: former ROS ROS Narrative Review of systems: Constitutional: Patient denies fever or chills. Eyes: Patient denies changes in vision or discharge from eyes. ENT: Patient denies runny nose, sore throat or ear pain. Resp: Patient denies SOB or cough. CV: Patient denies chest pain, palpitations or heart racing. GI: Patient admits to generalized cramping abdominal pain with nausea and vomiting as per HPI. : Patient denies dysuria or hematuria. MSK: Patient denies arthralgias or myalgias. Skin: Patient denies rash, abscess or jaundice. Psych: Patient denies symptoms of uncontrolled depression or anxiety. Neuro: Patient denies headache, paresthesias or focal neurologic deficits. Allergy: Patient denies lip swelling, tongue swelling or urticaria. Hematology: Patient denies easy bleeding or easy bruisability. Endocrinology: Patient denies polyuria, polydipsia or polyphagia. 14 point ROS otherwise negative except for positives noted above in HPI. Vital Signs Vital Signs Vital Signs: 05/01/24 15:20 05/01/24 17:19 05/01/24 19:00 Temperature 97.8 F Temperature Source Oral Pulse Rate 62 84 78 Respiratory Rate 16 Blood Pressure 145/71 H 146/112 H 148/98 H Blood Pressure Mean 95 123 114 Pulse Ox 99 99 Oxygen Delivery Method Room Air 05/01/24 21:00 Temperature Temperature Source Pulse Rate 89 Respiratory Rate Blood Pressure 148/101 H Blood Pressure Mean 116 Pulse Ox 99 Oxygen Delivery Method Weight Weight: 133 lb 6.075 oz Body Mass Index (BMI) 26.0 Physical Exam Const alert Results Medical Records Data Attestation: I reviewed the patient's medical records Lab / Micro Data Attestation: I reviewed the patient's lab results. 05/01/24 15:43 05/01/24 15:43 Labs: Laboratory Results - last 24 hr 05/01/24 15:43: WBC 8.7, RBC 4.12 L, Hgb 13.1, Hct 37.5, MCV 91.0, MCH 31.8, MCHC 34.9, RDW Std Deviation 45.1 H, RDW Coeff of Karol 13.8, Plt Count 181, MPV 11.5, Immature Gran % (Auto) 0.500, Neut % (Auto) 79.1 H, Lymph % (Auto) 11.9 L, [place] % (Auto) 7.6, Eos % (Auto) 0.3, Baso % (Auto) 0.6, Absolute Neuts (auto) 6.9, Absolute Lymphs (auto) 1.04, Nucleated RBC % 0, Sodium 141, Potassium 4.1, Chloride 110 H, Carbon Dioxide 23.0, Anion Gap 8, BUN 34 H, Creatinine 1.66 H, Estim Creat Clear Calc 19.41, Est GFR (MDRD) Af Amer 38 L, Est GFR (MDRD) Non-Af 31 L, BUN/Creatinine Ratio 20.5 H, Glucose 169 H, Calcium 9.2, Total Bilirubin 0.60, AST 23, ALT 17, Alkaline Phosphatase 74, Total Protein 6.9, Albumin 3.6, Globulin 3.3, Albumin/Globulin Ratio 1.1, Lipase 95 H 05/01/24 16:44: Urine Color Yellow, Urine Clarity Clear, Urine pH 6.5, Ur Specific [place] 1.010, Urine Protein 30 H, Urine Glucose (UA) Normal, Urine Ketones Negative, Urine Occult Blood Negative, Urine Nitrite Negative, Urine Bilirubin Negative, Urine Urobilinogen Normal, Ur Leukocyte Esterase Negative, Urine RBC 0 SEEN, Urine WBC 0 SEEN, Ur Squamous Epith Cells 0-5 SEEN, Urine Bacteria 0 SEEN, Urine Mucus 0 SEEN Imaging Radiology Impression Abdomen/Pelvis CT 05/01/24 15:36 IMPRESSION: Limited as above. 1. Moderate to marked diffuse fecal retention. Probable fecal impaction in the rectosigmoid. 2. Diverticulosis without definite diverticulitis. 3. Bilateral chronic renal atrophy. Electronically Signed: Valdemar Lang MD at 18:00 EST , Assessment & Plan Assessment/Plan (1) Constipation: QUALIFIERS: Constipation type: unspecified constipation type Qualified Code(s): K59.00 - Constipation, unspecified (2) Intractable abdominal pain: (3) Intractable vomiting with nausea: (4) S/P cholecystectomy: (5) Embolic cerebral infarction: QUALIFIERS: Precerebral and cerebral artery: unspecified cerebral artery Qualified Code(s): I63.40 - Cerebral infarction due to embolism of unspecified cerebral artery (6) Essential hypertension: (7) Overweight (BMI 25.0-29.9): (8) CKD stage 3b, GFR 30-44 ml/min: PLAN: Plan 1. CT scan of the abdomen pelvis done prior to disimpaction revealing moderate to marked diffuse fecal retention with probable fecal impaction in the rectosigmoid along with diverticulosis without definite diverticulitis and bilateral chronic renal atrophy with patient physically exhausted and still having uncontrolled cramping abdominal pain with ongoing nausea in spite of disimpaction, enema and multiple doses of IV morphine and IV metoclopramide - Admit to general medical floor under observation status. ER physician asked to give 17 g of MiraLAX with 30 cc of lactulose to help patient fully express bowel contents. She will need to be placed on a daily laxative regimen to minimize risk of recurrence. Give Protonix 40 mg IV daily plus Zofran IV as needed to control nausea vomiting. Finally, we will consult PT/OT and case management see this patient on rounds in the a.m. for further recommendations with help appreciated in advance. 2. Relatively recently diagnosed acute cholecystitis; s/p laparoscopic cholecystectomy here March 10, [address] Carr of general surgery complicating #1 - Stable. 3. Chronic disequilibrium with impaired ambulation and OA; with history of sciatica plus chronic neck pain compounding #1 & #2 - PT/OT and Case Management to consult and treat on-rounds in the AM for further recommendations with help appreciated in advance. 4. Essential hypertension - Continue home regimen plus give IV hydralazine as needed for systolic blood pressure greater than 160 mmHg. 5. Overweight; with BMI of 26 this admission - Weight loss will be recommended. Check TSH in light of #1. 6. History of paroxysmal atrial fibrillation - Noted. 7. History of TIA/CVA (2018) - Noted. 8. History of Left carotid aneurysm - Noted. 9. History of secondary pulmonary hypertension - Noted. 10. Chronic anemia - Stable with hemoglobin of 13.1 g/dL present on admission. 11. History of CKD; stage IV (2015) with subsequent improvement to Stage IIIb - Improved with creatinine of 1.66 mg/dL present on admission with records showing showing it was previously in the ~3-6 mg/dL range (2015). 12. History of bladder cancer; s/p resection (2014) - Noted with no signs of recurrence. 13. Positive family history of colon cancer in her mother - Noted. 14. History of diverticulitis - Noted with no sings of recurrence on CT this admission. 15. History of alcohol abuse - Patient denies active EtOH abuse. 16. History of vitamin D deficiency - Check vitamin d level this admission. 17. History of hypercalcemia - Resolved with serum calcium of 9.2 mg/dL present on admission. 18. Listed allergy to tramadol (nausea) - Noted. 19. DVT prophylaxis - Heparin 5,000 U sq BID plus SCD's. Total time: Approximately (but not less than) 70 minutes. Charges/Coding Visit Charges OBSV E&M: 96576 Observ/hosp same date L2
[2024-05-01 21:35] VITALS: BP 148/101; PULSE 89; RESP 20; TEMP 36.6; O2SAT 99
[2024-05-01] MEDS: Polyethylene Glycol 3350 17 GM PACKET PO (21:58)
[2024-05-01] MEDS: Lactulose 20 GM/30 ML UDC PO (21:58)
[2024-05-01] MEDS: Morphine 4 MG/ML Syringe IV (22:03)
[2024-05-01 22:50] VITALS: BMI 19.1
[2024-05-01 23:09] VITALS: BP 162/86; PULSE 93; RESP 16; TEMP 36.2; O2SAT 96
[2024-05-01] MEDS: 0.9% Normal Saline (1000mL) 1,000 ML 70 ML IV (23:09)
[2024-05-01] MEDS: Pantoprazole Sodium 40 MG in 0.9% Normal Saline (100mL MB+) 100 ML 330 MG IV (23:10)
[2024-05-01] MEDS: Heparin Injection (Vial) 5,000 UNIT/ML VIAL 5000 UNIT SC (23:10)
[2024-05-02] VITALS (10 sets, daily range): BP systolic 47–108; BP diastolic 23–80; PULSE 97–170; RESP 16–29; TEMP 36.6–36.8; O2SAT 95–98
[2024-05-02] MEDS: Morphine 2 MG/ML Syringe IV ×4 (00:47→13:56)
[2024-05-02 06:31] LABS: Absolute Neutrophil Count 16.4 X10^3/uL (2.0-7.7); Basophil# 0.06 X10^3/uL; Basophil% 0.3 % (0-1); Hematocrit 46.5 % (37-47); Hemoglobin 16.4 g/dL (12.0-15.0); Lymphocyte % 4.2 % (19-41); Mean Corp Hgb Conc 35.3 g/dL (32-36); Mean Corpuscular Hgb 34.2 pg (27.0-32.0); Mean Corpuscular Volume 97.1 fL (81-99); Mean Platelet Vol. 11.6 fl (6.2-12.0); Monocyte# 1.69 X10^3/uL; Monocyte% 8.9 % (0-10); NRBC Flagged by Analyzer 0 % (0-5); Neutrophil # 16.38 X10^3/uL (2.7-7.7); Neutrophil % 85.9 % (47-70); POSITIVE DIFFERENTIAL YES; Platelet Count 260 K/mm3 (150-450); RBC Distribution Width CV 15.7 % (11.6-14.6); RBC Distribution Width SD 48.4 fl (35.1-43.9); Red Blood Count 4.79 M/mm3 (4.2-5.4); White Blood Count 19.1 K/mm3 (4.4-11.0)
[2024-05-02 07:11] LABS: AST(SGOT) 39 U/L (15-37); Alanine Aminotransfer ALT/SGPT 28 U/L (13-56); Albumin, Serum 3.4 g/dL (3.2-5.0); Alkaline Phosphatase 87 U/L (45-117); Anion Gap 14 (5-15); BUN 37 mg/dL (7-18); BUN/Creat Ratio 15.2 RATIO (10-20); Calcium,Total 9.4 mg/dL (8.5-10.1); Chloride 113 mmol/L (98-107); Creatinine, Serum 2.44 mg/dL (0.55-1.02); EST Glomerular Filtration Rate 20 mL/min (>60); Est Glom Filt Rate - Afr Amer 24 mL/min (>60); Estimated Creatinine Clearance 12.95 ml/min; Globulin 3.5 g/dL (2.2-4.2); Glucose 250 mg/dL (74-106); Magnesium 2.6 mg/dL (1.6-2.6); Phosphorus 4.8 mg/dL (2.5-4.9); Potassium 4.3 mmol/L (3.5-5.1); Protein, Total 6.9 g/dL (6.4-8.2); Sodium Level 142 mmol/L (136-145)
[2024-05-02 07:21] LABS: Differential Indicated SCAN CRITERIA MET
--- NOTE | 2024-05-02 07:21 | PN.HOSP_ITS ---
Reason for Visit Reason for Visit: Diagnoses Overweight (05/01/24) Essential (primary) hypertension (05/01/24) Cerebral infarction due to embolism of unspecified cerebral artery (05/01/24) Constipation, unspecified (05/01/24) Chronic kidney disease, stage 3b (05/01/24) Unspecified abdominal pain (05/01/24) Nausea with vomiting, unspecified (05/01/24) Acquired absence of other specified parts of digestive tract (05/01/24) Subjective Subjective Patient is an 88-year-old lady who presented with abdominal pain imaging studies demonstrated moderate to mild diffuse fecal retention with suspected fecal impaction in the rectosigmoid colon. Objective Data Objective Data Vital Signs: Vital Signs Temp Pulse Resp BP Pulse Ox O2 Del Method 98.2 F 97 18 93/53 L 95 Room Air 05/02/24 04:20 05/02/24 04:20 05/02/24 04:20 05/02/24 04:20 05/02/24 04:20 05/02/24 04:20 Oxygen Delivery Method Room Air Weight: 50.5 kg Body Mass Index (BMI) 19.1 Intake & Output: Intake and Output for Last 24 Hours 04/30/24 05/01/24 05/02/24 23:59 23:59 23:59 Intake Total 1000 / 1000 576.67 / 576.67 Balance 1000 / 1000 576.67 / 576.67 Lab / Micro Data 05/02/24 05:09 05/02/24 05:09 Labs: Laboratory Results - last 24 hr 05/01/24 15:43: WBC 8.7, RBC 4.12 L, Hgb 13.1, Hct 37.5, MCV 91.0, MCH 31.8, MCHC 34.9, RDW Std Deviation 45.1 H, RDW Coeff of Karol 13.8, Plt Count 181, MPV 11.5, Immature Gran % (Auto) 0.500, Neut % (Auto) 79.1 H, Lymph % (Auto) 11.9 L, [place] % (Auto) 7.6, Eos % (Auto) 0.3, Baso % (Auto) 0.6, Absolute Neuts (auto) 6.9, Absolute Lymphs (auto) 1.04, Nucleated RBC % 0, Sodium 141, Potassium 4.1, Chloride 110 H, Carbon Dioxide 23.0, Anion Gap 8, BUN 34 H, Creatinine 1.66 H, Estim Creat Clear Calc 19.41, Est GFR (MDRD) Af Amer 38 L, Est GFR (MDRD) Non-Af 31 L, BUN/Creatinine Ratio 20.5 H, Glucose 169 H, Calcium 9.2, Total Bilirubin 0.60, AST 23, ALT 17, Alkaline Phosphatase 74, Total Protein 6.9, Albumin 3.6, Globulin 3.3, Albumin/Globulin Ratio 1.1, Lipase 95 H 05/01/24 16:44: Urine Color Yellow, Urine Clarity Clear, Urine pH 6.5, Ur Specific [place] 1.010, Urine Protein 30 H, Urine Glucose (UA) Normal, Urine Ketones Negative, Urine Occult Blood Negative, Urine Nitrite Negative, Urine Bilirubin Negative, Urine Urobilinogen Normal, Ur Leukocyte Esterase Negative, Urine RBC 0 SEEN, Urine WBC 0 SEEN, Ur Squamous Epith Cells 0-5 SEEN, Urine Bacteria 0 SEEN, Urine Mucus 0 SEEN 05/02/24 05:09: WBC 19.1 H, RBC 4.79, Hgb 16.4 H, Hct 46.5, MCV 97.1 D, MCH 34.2 H, MCHC 35.3, RDW Std Deviation 48.4 H, RDW Coeff of Karol 15.7 H, Plt Count 260, MPV 11.6, Immature Gran % (Auto) 0.700, Neut % (Auto) 85.9 H, Lymph % (Auto) 4.2 L, [place] % (Auto) 8.9, Eos % (Auto) 0.0, Baso % (Auto) 0.3, Absolute Neuts (auto) 16.4 H, Absolute Lymphs (auto) 0.80 L, Nucleated RBC % 0, Sodium 142, Potassium 4.3, Chloride 113 H, Carbon Dioxide 15.0 L, Anion Gap 14, BUN 37 H, Creatinine 2.44 H, Estim Creat Clear Calc 12.95, Est GFR (MDRD) Af Amer 24 L, Est GFR (MDRD) Non-Af 20 L, BUN/Creatinine Ratio 15.2, Glucose 250 H, Calcium 9.4, Phosphorus 4.8, Magnesium 2.6, Total Bilirubin 0.80, AST 39 H, ALT 28, Alkaline Phosphatase 87, Total Protein 6.9, Albumin 3.4, Globulin 3.5, Albumin/Globulin Ratio 1.0, TSH 14.300 H Radiography Diagnostic Testing: Radiology Impression Abdomen/Pelvis CT 05/01/24 15:36 IMPRESSION: Limited as above. 1. Moderate to marked diffuse fecal retention. Probable fecal impaction in the rectosigmoid. 2. Diverticulosis without definite diverticulitis. 3. Bilateral chronic renal atrophy. Electronically Signed: Valdemar Lang MD at 18:00 EST , Physical Exam Narrative GENERAL: cooperative HEENT: Atraumatic; normocephalic EYES; Anicteric, Normal Conjunctiva NECK; supple, normal thyroid, RESPIRATORY: Diminished to auscultation CARDIOVASCULAR: Regular S1 S2, GI: soft, normoactive bowel sounds, : No Renal angle tenderness; EXTREMITIES: No edema, no clubbing, MUSCULOSKELETAL: no muscle wasting NEURO: Awake; no lateralizing signs. SKIN: No Rash PSYCH; Flat affect Assessment & Plan Assessment/Plan (1) Constipation: QUALIFIERS: Constipation type: unspecified constipation type Q ualified Code(s): K59.00 - Constipation, unspecified PLAN: Plan Patient is an 88-year-old lady who presented with abdominal pain imaging studies demonstrated moderate to mild diffuse fecal retention with suspected fecal impaction in the rectosigmoid colon. 1. Severe constipation ?Moderate to marked diffuse fecal retention. Probable fecal impaction in the rectosigmoid. Patient admitted to regular nursing floor started on a bowel regimen 2. Hypertension ? Per history patient not on any antihypertensives 3. Acute kidney injury ? Patient baseline creatinine 1.6, creatinine on admission was 1.66 patient creatinine as of 05/02/2024 was 2.44 patient started on IV fluids with avoidance of potential nephrotoxic medications 4. Anemia ? Secondary to chronic disorder monitoring H&H and transfuse if patient becomes symptomatic or hemoglobin falls below 7 5.Hypothyroidism ? Patient TSH obtained on admission was 14.3 patient subsequently started on levothyroxine 6. Paroxysmal A-fib ? Per history patient presented in sinus rhythm 7.DVT prophylaxis ? Subcu heparin Time spent in the patient's overall evaluation,decision-making process, review of diagnostic data, adjustment of management, discussion with other providers, nursing nursing and ancillary staff involved in patient's care documentation, ... Minutes Advance planning; did discuss with the patient egarding advanced directives as well as CODE STATUS. Did explain the various scenarios involved ( FULL CODE, DNR CCA, DNR CCA with no intubation, and DNR CC and what each meant) patient elected to . Order was placed. Time spent on discussion 18 minutes.
--- NOTE | 2024-05-02 08:20 | NURSING ---
called to patients room by primary stating unable to get BP. pt alert moaning c/o belly gastelum. pt repositioned attempted to get bp and manual bp attempted. pt placed in reverse trande. and IV attempted while primary RN went to talk with Dr. Ashford who was on the unit. Bolus started when iv successful. household personal assistant updated. 0846 pt placed on tele monitor and continuous Spo2. DR. ashford notified of tachycardia and called for an ekg. hr into 160's bp remains in 60's and 2nd iv attempted by household personal assistant. 0856 dr. ashford and supervior bedside. dr. ashford reviewed ekg. household personal assistant and dr. ashford discussed transfer.
[2024-05-02] MEDS: 0.9% Saline Lock 10 ML Syringe IV ×2 (08:43→08:58)
[2024-05-02] MEDS: 0.9% Normal Saline (500mL Bag) 500 ML 999 ML IV (08:46)
--- NOTE | 2024-05-02 09:15 | RAD_ITS ---
STUDY: X-RAY - ABDOMEN/PELVIS REASON FOR EXAM: Female, 88 years old. Severe abdominal pain. TECHNIQUE: Single AP view of the abdomen / pelvis. COMPARISON: None. FINDINGS: Elevation of the right hemidiaphragm. Increased markings at the left lung base suggestive of left basilar atelectasis and/or infiltration. Gaseous distention of the stomach. Nonspecific bowel gas pattern. Residual contrast is seen within the bladder. Atherosclerotic calcification of the abdominal aorta. There are diffuse degenerative changes of the visualized lumbar spine. Mild levoconvex scoliosis. RAD/Abd Decub and/or Erect(Portabl IMPRESSION: Gaseous distention of the stomach. Electronically Signed: Tex De Souza MD at 10:13 EST ,
[2024-05-02 09:30] LABS: Absolute Lymphocyte Count 0.77 X10^3/uL (0.83-4.51); Absolute Neutrophil Count 11.4 X10^3/uL (2.0-7.7); Basophil# 0.04 X10^3/uL; Basophil% 0.3 % (0-1); Eosinophil# 0.31 X10^3/uL; Eosinophils% 2.3 % (0-5); Hematocrit 48.2 % (37-47); Lymphocyte # 0.77 X10^3/ul (0.83-4.51); Lymphocyte % 5.7 % (19-41); Mean Corp Hgb Conc 33.2 g/dL (32-36); Mean Corpuscular Hgb 30.8 pg (27.0-32.0); Mean Corpuscular Volume 92.9 fL (81-99); Mean Platelet Vol. 11.3 fl (6.2-12.0); Monocyte% 6.7 % (0-10); NRBC Flagged by Analyzer 0 % (0-5); Neutrophil # 11.44 X10^3/uL (2.7-7.7); Neutrophil % 84.6 % (47-70); POSITIVE COUNT YES; RBC Distribution Width CV 14.5 % (11.6-14.6); RBC Distribution Width SD 48.2 fl (35.1-43.9); Red Blood Count 5.19 M/mm3 (4.2-5.4); White Blood Count 13.5 K/mm3 (4.4-11.0)
[2024-05-02 09:30] LABS: Bedside Glucose 191 mg/dL (74-106)
[2024-05-02] MEDS: 0.9% Normal Saline (1000mL) 1,000 ML 150 ML IV (09:30)
[2024-05-02 10:03] LABS: Differential Indicated SCAN CRITERIA MET
[2024-05-02 10:04] LABS: Platelet Estimate ADEQUATE (ADEQ)
--- NOTE | 2024-05-02 10:11 | CASEMGMT ---
Social Work SW spoke with pt's dgt Zuri regarding advance directives. Zuri confirms pt has a living will and a health care Power of paper inspector naming daughters Zuri Braun and Gris Keita. Zuri made aware that documents are not on file at [facility]. BECKY Ceron
--- NOTE | 2024-05-02 10:13 | CASEMGMT ---
Social Work Pt presenting with medically complex concerns at this time. Pt's dgt Zuri Braun called by physician and is now present at [facility]. SW spent time with Zuri. Zuri able to speak with physician and physician requesting decision on code status. Zuri requesting to call sister to discuss. SW accompanied Zuri to the family room. Zuri asking difference between DNR and Living Will. ELSIE explained differences as well as DNR and Full Code. Zuri requesting full code at this time. Zuri then called sister Gris and Gris is in agreement with Full Code. Nursing updated. Pt is and lives in her home alone. She does have a privately hired caregiver that comes in 3 times a week to help with IADLs and for companionship. Zuri states pt has been getting along well at home. Support provided to Zuri. ELSIE will remain available for support as needed. Pt did trigger for an Social Determinates of Health screening for housing needs. Due to medical issues, it is not appropriate to complete SDOH screening at this time. Handoff provided to PCU ELSIE. BECKY Ceron
[2024-05-02 10:15] LABS: AST(SGOT) 59 U/L (15-37); Alanine Aminotransfer ALT/SGPT 33 U/L (13-56); Alkaline Phosphatase 76 U/L (45-117); Anion Gap 12 (5-15); BUN 43 mg/dL (7-18); BUN/Creat Ratio 16.1 RATIO (10-20); Bilirubin, Direct 0.15 mg/dL (0.00-0.30); Calcium,Total 9.1 mg/dL (8.5-10.1); Chloride 117 mmol/L (98-107); Creatinine, Serum 2.67 mg/dL (0.55-1.02); EST Glomerular Filtration Rate 18 mL/min (>60); Est Glom Filt Rate - Afr Amer 22 mL/min (>60); Estimated Creatinine Clearance 11.83 ml/min; Globulin 3.4 g/dL (2.2-4.2); Glucose 158 mg/dL (74-106); Magnesium 2.5 mg/dL (1.6-2.6); Phosphorus 4.8 mg/dL (2.5-4.9); Potassium 5.8 mmol/L (3.5-5.1); Protein, Total 6.4 g/dL (6.4-8.2); Sodium Level 144 mmol/L (136-145)
[2024-05-02 10:18] LABS: Lactic Acid 6.9 mmol/L (0.4-1.9)
--- NOTE | 2024-05-02 11:16 | PN_ITS ---
Progress Note Patient initially did respond to IV fluid resuscitation she however subsequently developed persistent tachycardia necessitating patient being placed on continuous telemetry monitoring. Subsequent diagnostic workup did reveal potassium of 5.8, carbon dioxide of 16 creatinine of 2.67 BUN of 43 lactic acid level of 6.9. A clinical assessment of ischemic bowel was made KUB which had been ordered which showed Gaseous distention of the stomach. Was being monitored on telemetry patient was noted to have developed wide-complex tachycardia subsequent EKG did show ST segment elevation consistent with acute STEMI. After review of the EKGs with Dr. Panchal the incident response consultant on-call for STEMI he was of the. The EKG changes were secondary to patient acidosis as well as hyperkalemia patient was therefore not taking to the President Ceo & Founder. Decision was made to transfer patient to the intensive care unit with consultation placed to cardiology nephrology General Surgery as well as critical care. An NG tube was placed given patient discharged distention of the stomach and CT of the abdomen and pelvis without contrast ordered per recommendations from surgery. Orders were also given for treatment of patient hyperkalemia. After discussions with other incident response consultant involved with the family patient's family elected not to pursue any aggressive treatment. Patient CODE STATUS was changed to DNR comfort care. Consult was placed to the hospice care team case management notified Assessment time spent; 45 minutes [facility] Codes Hospitalists' Procedures Procedures: 14131 Advncd Care Plan 30 Min and [id number] Advncd Care Plan addl 30 Min
--- NOTE | 2024-05-02 11:26 | EX.PCM.CON.S ---
Assessment & Plan Assessment/Plan (1) Intractable abdominal pain: (2) Intractable vomiting with nausea: (3) Constipation: QUALIFIERS: Constipation type: unspecified constipation type Qualified Code(s): K59.00 - Constipation, unspecified (4) Paroxysmal atrial fibrillation: (5) Hypotension: (6) Hyperkalemia: PLAN: Plan Patient is currently being seen by cardiology echo was completed likely heart dysfunction and tachycardia due to the hyperkalemia. Patient's EF is 30% normally due to it being unstable patient would not be a candidate for surgery. Patient did have some abdominal pain did improve with placement Ng his stomach was distended on this morning's KUB. Rectal exam there is no stool was able to get out digitally I could still feel small amount of hard stool at my fingertip. No plans for any surgical intervention due to cardiac issues/cardiac history discussed with family. Also discussed with family CODE STATUS. They were agreeable for no CPR or intubation. Patsy Schmidt M.D. Pager: [phone] [facility] [address] [place] [address], [facility], [address] [place] [address] Office: [phone] HPI Consult Data Date of Consult: 05/02/24 HPI Narrative Reason for Consultation: Ischemic bowel HPI Narrative: TRUPTI BARCLAY, is a 88 F who admitted yesterday with fecal impaction with new hypotension, hyperkalemia, lactic acidosis, tachycardia with heart rate 170 with abnormal rhythm to ICU. Concern for possible ischemic bowel clinically due to abdominal pain and lactic acidosis. Patient's CAT scans from admission she did have a KUB this morning that shows a large gas-filled stomach and gas-filled colon unable to tell much more from KUB. Patient's white blood count went from 19-13 this morning patient is not on any antibiotics. Patient's lactic is 6.9, potassium is 5.8, creatinine increased from 2.4-2.6 baseline is more around 1.6. Patient was getting some laxatives on the floor to help with the fecal impaction. Currently patient is undergoing echo and evaluation by cardiology due to the tachycardia. 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) Vitamin D deficiency Carotid aneurysm, left Essential hypertension Disequilibrium Impaired ambulation Lightheaded Bladder cancer History of ETOH abuse Hypercalcemia Family hx of colon cancer Microscopic hematuria Acute renal failure Normochromic normocytic anemia History of sciatica Home Medications ?Medication ?Instructions ?Recorded ?Last Taken ?Type NK 05/01/24 Unknown History Allergy/AdvReac Type Severity Reaction Status Date / Time tramadol Allergy Intermediate Nausea Verified 05/01/24 15:20 Family History Mother Colon cancer Surgical History S/P cholecystectomy History of bladder surgery Social History Smoking Status: Never smoker alcohol intake: former ROS ROS Narrative Unable to complete review of systems patient currently getting echo. Gastrointestinal Gastrointestinal: Reports abdominal pain, constipation, nausea and vomiting Physical Exam Const General Appearance: ill appearing and frail HEENT normocephalic Cardio Rate: tachycardic Rhythm: abnormal rhythm GI GI Narrative: Tender diffusely, once NG was placed able to press a little more on the abdomen likely voluntary guarding; rectal exam hard stool at fingertip unable to manually remove any additional stool. Extremity normal to inspection Skin no jaundice Lab / Micro Data 05/02/24 09:20 05/02/24 09:20 Labs: Laboratory Results - last 24 hr 05/01/24 15:43: WBC 8.7, RBC 4.12 L, Hgb 13.1, Hct 37.5, MCV 91.0, MCH 31.8, MCHC 34.9, RDW Std Deviation 45.1 H, RDW Coeff of Karol 13.8, Plt Count 181, MPV 11.5, Immature Gran % (Auto) 0.500, Neut % (Auto) 79.1 H, Lymph % (Auto) 11.[address] L, [place] % (Auto) 7.6, Eos % (Auto) 0.3, Baso % (Auto) 0.6, Absolute Neuts (auto) 6.9, Absolute Lymphs (auto) 1.04, Nucleated RBC % 0, Sodium 141, Potassium 4.1, Chloride 110 H, Carbon Dioxide 23.0, Anion Gap 8, BUN 34 H, Creatinine 1.66 H, Estim Creat Clear Calc 19.41, Est GFR (MDRD) Af Amer 38 L, Est GFR (MDRD) Non-Af 31 L, BUN/Creatinine Ratio 20.5 H, Glucose 169 H, Calcium 9.2, Total Bilirubin 0.60, AST 23, ALT 17, Alkaline Phosphatase 74, Total Protein 6.9, Albumin 3.6, Globulin 3.3, Albumin/Globulin Ratio 1.1, Lipase 95 H 05/01/24 16:44: Urine Color Yellow, Urine Clarity Clear, Urine pH 6.5, Ur Specific [place] 1.010, Urine Protein 30 H, Urine Glucose (UA) Normal, Urine Ketones Negative, Urine Occult Blood Negative, Urine Nitrite Negative, Urine Bilirubin Negative, Urine Urobilinogen Normal, Ur Leukocyte Esterase Negative, Urine RBC 0 SEEN, Urine WBC 0 SEEN, Ur Squamous Epith Cells 0-5 SEEN, Urine Bacteria 0 SEEN, Urine Mucus 0 SEEN 05/02/24 05:09: WBC 19.1 H, RBC 4.79, Hgb 16.4 H, Hct 46.5, MCV 97.1 D, MCH 34.2 H, MCHC 35.3, RDW Std Deviation 48.4 H, RDW Coeff of Karol 15.7 H, Plt Count 260, MPV 11.6, Immature Gran % (Auto) 0.700, Neut % (Auto) 85.9 H, Lymph % (Auto) 4.[address] L, [place] % (Auto) 8.9, Eos % (Auto) 0.0, Baso % (Auto) 0.3, Absolute Neuts (auto) 16.4 H, Absolute Lymphs (auto) 0.80 L, Nucleated RBC % 0, Differential Comment COMMENT, Diff Path Review September, Sodium 142, Potassium 4.3, Chloride 113 H, Carbon Dioxide 15.0 L, Anion Gap 14, BUN 37 H, Creatinine 2.44 H, Estim Creat Clear Calc 12.95, Est GFR (MDRD) Af Amer 24 L, Est GFR (MDRD) Non-Af 20 L, BUN/Creatinine Ratio 15.2, Glucose 250 H, Calcium 9.4, Phosphorus 4.8, Magnesium 2.6, Total Bilirubin 0.80, AST 39 H, ALT 28, Alkaline Phosphatase 87, Total Protein 6.9, Albumin 3.4, Globulin 3.5, Albumin/Globulin Ratio 1.0, TSH 14.300 H 05/02/24 08:31: POC Glucose 191 H 05/02/24 09:12: Lactic Acid 6.9 H* 05/02/24 09:20: WBC 13.5 H, RBC 5.19, Hgb 16.0 H, Hct 48.2 H, MCV 92.9, MCH 30.8, MCHC 33.2 D, RDW Std Deviation 48.2 H, RDW Coeff of Karol 14.5, Plt Count , MPV 11.3, Immature Gran % (Auto) 0.400, Neut % (Auto) 84.6 H, Lymph % (Auto) 5.7 L, [place] % (Auto) 6.7, Eos % (Auto) 2.3, Baso % (Auto) 0.3, Absolute Neuts (auto) 11.4 H, Absolute Lymphs (auto) 0.77 L, Nucleated RBC % 0, Platelet Estimate ADEQUATE, Sodium 144, Potassium 5.8 H, Chloride 117 H, Carbon Dioxide 16.0 L, Anion Gap 12, BUN 43 H, Creatinine 2.67 H, Estim Creat Clear Calc 11.83, Est GFR (MDRD) Af Amer 22 L, Est GFR (MDRD) Non-Af 18 L, BUN/Creatinine Ratio 16.1, Glucose 158 H, Calcium 9.1, Phosphorus 4.8, Magnesium 2.5, Total Bilirubin 0.80, Direct Bilirubin 0.15, AST 59 H, ALT 33, Alkaline Phosphatase 76, Total Protein 6.4, Albumin 3.0 L, Globulin 3.4 Imaging Radiology Impression Abdomen/Pelvis CT 05/01/24 15:36 IMPRESSION: Limited as above. 1. Moderate to marked diffuse fecal retention. Probable fecal impaction in the rectosigmoid. 2. Diverticulosis without definite diverticulitis. 3. Bilateral chronic renal atrophy. Electronically Signed: Valdemar Lang MD at 18:00 EST , Abdomen X-Ray 05/02/24 09:15 IMPRESSION: Gaseous distention of the stomach. Electronically Signed: Tex De Souza MD at 10:13 EST , Charges/Coding Visit Charges Inpatient E&M: 48879 Init Hosp L3
--- NOTE | 2024-05-02 11:29 | EKG12_ITS ---
Test Reason : vtach Blood Pressure : */* mmHG Vent. Rate : 111 BPM Atrial Rate : 111 BPM P-R Int : 170 ms QRS Dur : 68 ms QT Int : 312 ms P-R-T Axes : * -22 -64 degrees QTcB Int : 424 ms Sinus tachycardia Nonspecific ST and T wave abnormality Abnormal ECG When compared with ECG of 02-May-2024 10:41, MANUAL COMPARISON REQUIRED DATA IS UNCONFIRMED Confirmed by Flo Camarillo ([id number]), map editor ROSA VELAZQUEZ ([id number]) on 05/05/2024 9:14:39 AM Referred By: Juvenal Confirmed By: Flo Camarillo
--- NOTE | 2024-05-02 11:38 | EKG12_ITS ---
Test Reason : CP Blood Pressure : */* mmHG Vent. Rate : 173 BPM Atrial Rate : * BPM P-R Int : * ms QRS Dur : 68 ms QT Int : 264 ms P-R-T Axes : * -19 97 degrees QTcB Int : 447 ms Supraventricular tachycardia Low voltage QRS Cannot rule out Anterior infarct , age undetermined Inferior injury pattern ACUTE MD / STEMI Consider right ventricular involvement in acute inferior infarct Abnormal ECG When compared with ECG of 02-May-2024 08:56, MANUAL COMPARISON REQUIRED DATA IS UNCONFIRMED Confirmed by Flo Camarillo ([id number]), magazine editor ROSA VELAZQUEZ ([id number]) on 05/05/2024 9:11:25 AM Referred By: Confirmed By: Flo Camarillo
--- NOTE | 2024-05-02 11:38 | EKG12_ITS ---
Test Reason : ARRYTH Blood Pressure : */* mmHG Vent. Rate : 165 BPM Atrial Rate : * BPM P-R Int : * ms QRS Dur : 72 ms QT Int : 258 ms P-R-T Axes : * -30 112 degrees QTcB Int : 427 ms Supraventricular tachycardia Left axis deviation Nonspecific T wave abnormality Abnormal ECG When compared with ECG of 01-May-2024 15:51, MANUAL COMPARISON REQUIRED DATA IS UNCONFIRMED Confirmed by Flo Camarillo ([id number]), associate editor ROSA VELAZQUEZ ([id number]) on 05/05/2024 9:11:34 AM Referred By: Confirmed By: Flo Camarillo
--- NOTE | 2024-05-02 11:41 | CPS ---
EKG done at 1041 on 05/[address] Sanford and Dr. Adams
--- NOTE | 2024-05-02 11:42 | EKG12_ITS ---
Test Reason : rhythm change Blood Pressure : */* mmHG Vent. Rate : 165 BPM Atrial Rate : * BPM P-R Int : * ms QRS Dur : 68 ms QT Int : 258 ms P-R-T Axes : * -24 124 degrees QTcB Int : 427 ms Critical Test Result: High HR Supraventricular tachycardia Inferior infarct , age undetermined Cannot rule out Anterior infarct , age undetermined Abnormal ECG No previous ECGs available Confirmed by Flo Camarillo ([id number]), tape editor ROSA VELAZQUEZ ([id number]) on 05/05/2024 9:14:31 AM Referred By: Juvenal Confirmed By: Flo Camarillo
--- NOTE | 2024-05-02 12:02 | CASEMGMT ---
Handoff provided verbally to FOOD AND BEVERAGE COORDINATOR CM.
[2024-05-02 12:13] LABS: Troponin-I HS 164 pg/mL (3.0-54.0)
--- NOTE | 2024-05-02 12:23 | CASEMGMT ---
Social Work- ELSIE received notice from [employer] Can Router that family would like comfort care referral. ELSIE completed referral to [facility]. Follow up with family for support offered by ELSIE Craig. ELSIE remains available to follow. BECKY Loja
--- NOTE | 2024-05-02 12:36 | CASEMGMT ---
Social Work SW received message that pt family is now opting for comfort care. SW met with pt's dgts Bianca. Dgts are stating that after speaking with physicians they are opting for comfort measures for pt and agreeable to hospice referral. SW explained the IPU to dgts and they are understanding and agreeable. Emotional support provided. Referral has been made to [facility]. BECKY Ceron
[2024-05-02] MEDS: morphine (oral solution) 10MG/0.5ML Syringe 5 MG SL/PO (12:54)
--- NOTE | 2024-05-02 13:03 | NURSING ---
Around 0830 this RN went into pt room for initial assessment and vital signs. This RN was unable to obtain a blood pressure and propellant charge zone assembler came into room to obtain IV access, as pt had previously removed IVs. BP obtained was 67/49 and HR 139. Pt moaning in pain, able to answer questions. Dr Sanford notified and ordered a NS bolus. Per Dr Sanford, OK to give morphine in order to control pain despite low BP. Planning to transfer to PCU at that time. BP improved to 108/67. Around 1030, tele monitor was alarming vtach. Pt complaining of worsening pain. Dr Sanford notified, EKG ordered and ordered to give another dose of morphine. EKG did show vtach. Pads were put on pt and STEMI alert was called. Pt was transferred to ICU by quarry supervisor dimension stone and ICU nurse.
[2024-05-02 13:21] LABS: Reflex Lactate? Y
--- NOTE | 2024-05-02 13:59 | CASEMGMT ---
Social Work [facility] will be here to meet with pt at 5:30. ICU nurse notified. BECKY Ceron
--- NOTE | 2024-05-02 14:07 | CHAPLAIN ---
Type of Pastoral Visit _x__ Initial Visit ___ Follow-up Visit ___ On-call Visit ___ General Patient Visit ___ Spiritual Assessment ___ Family Conference ___ Bereavement ___ Rapid Response ___ Code Blue ___ Other (describe below) Pastoral Care Referral From ___ Patient _x__ Family ___ Nurse ___ Physician ___ Site Acquisition Specialist ___ Cost Clerk ___ Other (describe below) Sacrament/Intervention _x__ Active listening ___ Anointing ___ Yarsani ___ Bereavement ___ Communion ___ Maxine exploration ___ ___ Life review _x__ Prayer ___ Reconciliation ___ Sacrament of Sick _x__ Supportive presence ___ Wedding ___ Other (describe below) Pastoral Comments family requested Last Rites/Anointing of the Sick for this patient who is opting for comfort care only; staff was able to contact [facility] [employer] and the spinning bath person did come to offer the Sacrament; followed up with the patient and family; several family members are present in the room; the patient is awake and is in some discomfort; family welcomes presence and prayer; comforting words and reminder of the kind attention of God is given; offer of ongoing support to family as desired
[2024-05-02] MEDS: LORazepam 2 MG/ML Bottle 0.5 MG SL (14:08)
--- NOTE | 2024-05-02 14:08 | PCM.CONS.C ---
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 Presentation is intractable nausea vomiting abdominal pain. Patient was acidotic with a serum lactate level of 6.9 serum potassium level is 5.8 and she had a longstanding history of CKD with a creatinine 2.67. Patient was hypotensive with a systolic blood pressure around 90 very agitated and was unstable and transferred to the intensive care unit. The EKG showed evidence of sinus tach with wide QRS complex. Echocardiographic evaluation showed severe LV systolic dysfunction EF in the range of around 30. Patient was seen by the surgical team as well as knitter operator. Cardiac care plan discussed in detail Will start the patient on heparin. Aspirin. Subsequent evaluation with high sensitive troponins was elevated 164 Clinical impression and cardiac care; 1. Clinical presentation of abdominal pain nausea vomiting with sepsis patient has leukocytosis elevated lactate renal insufficiency with hyperkalemia the change in the EKG could be secondary to hyperkalemia with widening of the QRS complex. She is not a candidate for emergency cardiac catheterization I discussed this in detail with the knitter operator as well as with the surgical team. Also discussed with the family family decided DNR. No resuscitation. The elevated high sensitive troponins could be explained as type II [place] with demand myocardial ischemia in the setting of RADHA and CKD. From cardiac standpoint recommendation would be a conservative treatment with a statin, aspirin heparin and low-dose beta-krzysztof if as tolerated by the blood pressure. And if she improves on medical management to follow-up as an outpatient with the cardiology team here at [facility]. From cardiac standpoint she had a history of paroxysmal atrial fibrillation and she had been seen by the cardiac team here at [facility] however she did not follow-up regularly for the A-fib treatment. No further cardiac input will be required in this patient but will be available if there is any need arise. 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) Vitamin D deficiency Carotid aneurysm, left Essential hypertension Disequilibrium Impaired ambulation Lightheaded Bladder cancer History of ETOH abuse Hypercalcemia Family hx of colon cancer Microscopic hematuria Acute renal failure Normochromic normocytic anemia History of sciatica Home Medications ?Medication ?Instructions ?Recorded ?Last Taken ?Type NK 05/01/24 Unknown History Allergy/AdvReac Type Severity Reaction Status Date / Time tramadol Allergy Intermediate Nausea Verified 05/01/24 15:20 Family History Mother Colon cancer Surgical History S/P cholecystectomy History of bladder surgery Social History Smoking Status: Never smoker alcohol intake: former Physical Exam Chest Chest Narrative: Patient seen and evaluated in surgical floor as well as in ICU Along with the medical team and surgical team. Presentation intractable abdominal pain with nausea vomiting and constipation. Cardiac rhythm showed sinus tachycardia/wide-complex QRSs. Bedside cardiac examination patient was hypotensive with blood pressure systolic in the range of around 90 mmHg. Cardiac exam S1-S2 regular Chest exam normal to auscultation Abdomen mildly distended with diffuse tenderness on abdominal exam. Risk Stratification Risk Stratification Applicable: No Objective Data Vital Signs: Vital Signs Temp Pulse Resp BP Pulse Ox O2 Del Method O2 Flow Rate 97.8 F 170 H 16 98/66 95 High Flow 5 05/02/24 09:49 05/02/24 09:49 05/02/24 09:49 05/02/24 10:51 05/02/24 09:49 05/02/24 10:00 05/02/24 10:00 Oxygen Flow Rate (L/min) 5 Oxygen Delivery Method High Flow Weight: 111 lb 5.335 oz Body Mass Index (BMI) 19.1 Intake & Output: Intake and Output for Last 24 Hours 04/30/24 05/01/24 05/02/24 23:59 23:59 23:59 Intake Total 1000 / 1000 1126.67 / 1126.67 Balance 1000 / 1000 1126.67 / 1126.67 Lab / Micro Data 05/02/24 09:20 05/02/24 09:20 Labs: Laboratory Results - last 24 hr 05/01/24 15:43: WBC 8.7, RBC 4.12 L, Hgb 13.1, Hct 37.5, MCV 91.0, MCH 31.8, MCHC 34.9, RDW Std Deviation 45.1 H, RDW Coeff of Karol 13.8, Plt Count 181, MPV 11.5, Immature Gran % (Auto) 0.500, Neut % (Auto) 79.1 H, Lymph % (Auto) 11.9 L, Ashe % (Auto) 7.6, Eos % (Auto) 0.3, Baso % (Auto) 0.6, Absolute Neuts (auto) 6.9, Absolute Lymphs (auto) 1.04, Nucleated RBC % 0, Sodium 141, Potassium 4.1, Chloride 110 H, Carbon Dioxide 23.0, Anion Gap 8, BUN 34 H, Creatinine 1.66 H, Estim Creat Clear Calc 19.41, Est GFR (MDRD) Af Amer 38 L, Est GFR (MDRD) Non-Af 31 L, BUN/Creatinine Ratio 20.5 H, Glucose 169 H, Calcium 9.2, Total Bilirubin 0.60, AST 23, ALT 17, Alkaline Phosphatase 74, Total Protein 6.9, Albumin 3.6, Globulin 3.3, Albumin/Globulin Ratio 1.1, Lipase 95 H 05/01/24 16:44: Urine Color Yellow, Urine Clarity Clear, Urine pH 6.5, Ur Specific Irving 1.010, Urine Protein 30 H, Urine Glucose (UA) Normal, Urine Ketones Negative, Urine Occult Blood Negative, Urine Nitrite Negative, Urine Bilirubin Negative, Urine Urobilinogen Normal, Ur Leukocyte Esterase Negative, Urine RBC 0 SEEN, Urine WBC 0 SEEN, Ur Squamous Epith Cells 0-5 SEEN, Urine Bacteria 0 SEEN, Urine Mucus 0 SEEN 05/02/24 05:09: WBC 19.1 H, RBC 4.79, Hgb 16.4 H, Hct 46.5, MCV 97.1 D, MCH 34.2 H, MCHC 35.3, RDW Std Deviation 48.4 H, RDW Coeff of Karol 15.7 H, Plt Count 260, MPV 11.6, Immature Gran % (Auto) 0.700, Neut % (Auto) 85.9 H, Lymph % (Auto) 4.2 L, Ashe % (Auto) 8.9, Eos % (Auto) 0.0, Baso % (Auto) 0.3, Absolute Neuts (auto) 16.4 H, Absolute Lymphs (auto) 0.80 L, Nucleated RBC % 0, Differential Comment COMMENT, Diff Path Review September, Sodium 142, Potassium 4.3, Chloride 113 H, Carbon Dioxide 15.0 L, Anion Gap 14, BUN 37 H, Creatinine 2.44 H, Estim Creat Clear Calc 12.95, Est GFR (MDRD) Af Amer 24 L, Est GFR (MDRD) Non-Af 20 L, BUN/Creatinine Ratio 15.2, Glucose 250 H, Calcium 9.4, Phosphorus 4.8, Magnesium 2.6, Total Bilirubin 0.80, AST 39 H, ALT 28, Alkaline Phosphatase 87, Total Protein 6.9, Albumin 3.4, Globulin 3.5, Albumin/Globulin Ratio 1.0, TSH 14.300 H 05/02/24 08:31: POC Glucose 191 H 05/02/24 09:12: Lactic Acid 6.9 H* 05/02/24 09:20: WBC 13.5 H, RBC 5.19, Hgb 16.0 H, Hct 48.2 H, MCV 92.9, MCH 30.8, MCHC 33.2 D, RDW Std Deviation 48.2 H, RDW Coeff of Karol 14.5, Plt Count , MPV 11.3, Immature Gran % (Auto) 0.400, Neut % (Auto) 84.6 H, Lymph % (Auto) 5.7 L, Ashe % (Auto) 6.7, Eos % (Auto) 2.3, Baso % (Auto) 0.3, Absolute Neuts (auto) 11.4 H, Absolute Lymphs (auto) 0.77 L, Nucleated RBC % 0, Platelet Estimate ADEQUATE, Sodium 144, Potassium 5.8 H, Chloride 117 H, Carbon Dioxide 16.0 L, Anion Gap 12, BUN 43 H, Creatinine 2.67 H, Estim Creat Clear Calc 11.83, Est GFR (MDRD) Af Amer 22 L, Est GFR (MDRD) Non-Af 18 L, BUN/Creatinine Ratio 16.1, Glucose 158 H, Calcium 9.1, Phosphorus 4.8, Magnesium 2.5, Total Bilirubin 0.80, Direct Bilirubin 0.15, AST 59 H, ALT 33, Alkaline Phosphatase 76, Troponin I High Sens 164 H*, Total Protein 6.4, Albumin 3.0 L, Globulin 3.4 Cardiology Labs/Tests 05/01/24 15:43: WBC 8.7, RBC 4.12 L, Hgb 13.1, Hct 37.5, MCV 91.0, MCH 31.8, MCHC 34.9, Plt Count 181, MPV 11.5, Immature Gran % (Auto) 0.500, Neut % (Auto) 79.1 H, Lymph % (Auto) 11.9 L, Ashe % (Auto) 7.6, Eos % (Auto) 0.3, Baso % (Auto) 0.6, Absolute Neuts (auto) 6.9, Nucleated RBC % 0, Sodium 141, Potassium 4.1, Chloride 110 H, Carbon Dioxide 23.0, Anion Gap 8, BUN 34 H, Creatinine 1.66 H, Est GFR (MDRD) Af Amer 38 L, Est GFR (MDRD) Non-Af 31 L, BUN/Creatinine Ratio 20.5 H, Glucose 169 H, Calcium 9.2, Total Bilirubin 0.60 05/01/24 16:44: Urine Color Yellow, Urine Clarity Clear, Urine pH 6.5, Ur Specific Irving 1.010, Urine Protein 30 H, Urine Glucose (UA) Normal, Urine Ketones Negative, Urine Occult Blood Negative, Urine Nitrite Negative, Urine Bilirubin Negative, Urine Urobilinogen Normal, Ur Leukocyte Esterase Negative, Urine RBC 0 SEEN, Urine WBC 0 SEEN 05/02/24 05:09: WBC 19.1 H, RBC 4.79, Hgb 16.4 H, Hct 46.5, MCV 97.1 D, MCH 34.2 H, MCHC 35.3, Plt Count 260, MPV 11.6, Immature Gran % (Auto) 0.700, Neut % (Auto) 85.9 H, Lymph % (Auto) 4.2 L, Ashe % (Auto) 8.9, Eos % (Auto) 0.0, Baso % (Auto) 0.3, Absolute Neuts (auto) 16.4 H, Nucleated RBC % 0, Sodium 142, Potassium 4.3, Chloride 113 H, Carbon Dioxide 15.0 L, Anion Gap 14, BUN 37 H, Creatinine 2.44 H, Est GFR (MDRD) Af Amer 24 L, Est GFR (MDRD) Non-Af 20 L, BUN/Creatinine Ratio 15.2, Glucose 250 H, Calcium 9.4, Phosphorus 4.8, Magnesium 2.6, Total Bilirubin 0.80 05/02/24 09:12: Lactic Acid 6.9 H* 05/02/24 09:20: WBC 13.5 H, RBC 5.19, Hgb 16.0 H, Hct 48.2 H, MCV 92.9, MCH 30.8, MCHC 33.2 D, Plt Count , MPV 11.3, Immature Gran % (Auto) 0.400, Neut % (Auto) 84.6 H, Lymph % (Auto) 5.7 L, Ashe % (Auto) 6.7, Eos % (Auto) 2.3, Baso % (Auto) 0.3, Absolute Neuts (auto) 11.4 H, Nucleated RBC % 0, Sodium 144, Potassium 5.8 H, Chloride 117 H, Carbon Dioxide 16.0 L, Anion Gap 12, BUN 43 H, Creatinine 2.67 H, Est GFR (MDRD) Af Amer 22 L, Est GFR (MDRD) Non-Af 18 L, BUN/Creatinine Ratio 16.1, Glucose 158 H, Calcium 9.1, Phosphorus 4.8, Magnesium 2.5, Total Bilirubin 0.80, Direct Bilirubin 0.15 Rhythm: EKG: ECHO: Stress Test: Cardiac Cath: PCI: CT Surgery: Holter monitor: EPS: PPM: CXR: Chest CT Scan: Radiography Diagnostic Testing: Radiology Impression Abdomen/Pelvis CT 05/01/24 15:36 IMPRESSION: Limited as above. 1. Moderate to marked diffuse fecal retention. Probable fecal impaction in the rectosigmoid. 2. Diverticulosis without definite diverticulitis. 3. Bilateral chronic renal atrophy. Electronically Signed: Valdemar Lang MD at 18:00 EST , Abdomen X-Ray 05/02/24 09:15 IMPRESSION: Gaseous distention of the stomach. Electronically Signed: Tex De Souza MD at 10:13 EST ,
[2024-05-02 14:21] LABS: Pathologist Review Reviewed
--- NOTE | 2024-05-02 14:53 | NURSING ---
Patient was a STEMI alert on MS3 today, it was determined the patient would not be going to optical laboratory technician right away. Patient was brought to the ICU for further monitoring, ECHO done at bedside upon arrival to the unit. Surgery, Cardiology and Video Player Mechanic all saw patient upon arrival to the ICU. It was determined by caridology her EF awas 30% therefore not a surgical candidate, Cardiology did not want to take her to the optical laboratory technician still at this time. Video Player Mechanic Dr. Sosa talked extensively with the family about options. Patient was switched to a DNCC at that time.
--- NOTE | 2024-05-02 15:35 | PCM.DEATH ---
Preliminary Cause of Preliminary Cause of Preliminary Cause of : Ischemic colitis Acute kidney injury Hyperkalemia Date of Admission: 05/01/24 Date of : 05/02/24 Principle Diagnosis Ischemic colitis Acute kidney injury Hyperkalemia Problem List: Active and Suspected Problems (Updated 05/02/24 @ 11:[address] Patsy Schmidt MD) Hyperkalemia (Acute) Hypotension (Acute) CKD stage 3b, GFR 30-44 ml/min (Acute) Overweight (BMI 25.0-29.9) (Acute) Constipation (Acute) Intractable vomiting with nausea (Acute) Intractable abdominal pain (Acute) S/P cholecystectomy (Acute) Hospital Course domenic is an 88-year-old lady who presented with abdominal pain imaging studies demonstrated moderate to mild diffuse fecal retention with suspected fecal impaction in the rectosigmoid colon. Patient underwent disimpaction in the emergency department subsequently admitted to regular nursing floor subsequent hospital stay complicated by ischemic bowel, acute kidney injury, hyperkalemia. After lengthy discussion with family CODE STATUS was changed to DNR CC consult placed to hospice/palliative care. Did initiate palliative care/hospice insulin management. Plan was for patient to have been transferred to the inpatient hospice facility patient was however found without heart tones and spontaneous breathing on 05/02/2024 at 1530 patient was pronounced . Family by the bedside Visit Charges Inpatient E&M: [id number] Disch Hosp
--- NOTE | 2024-05-02 15:37 | NURSING ---
Patient passed at 15:30 family present at the bedside. Dr. Sanford notified
--- NOTE | 2024-05-02 15:56 | CASEMGMT ---
Social Work SW received message from RN that pt has passed. SW updated [facility]. SW met with pt family and provided support. BECKY Ceron
--- NOTE | 2024-05-02 16:58 | CHAPLAIN ---
Type of Pastoral Visit ___ Initial Visit _x__ Follow-up Visit ___ On-call Visit ___ General Patient Visit ___ Spiritual Assessment ___ Family Conference _x__ Bereavement ___ Rapid Response ___ Code Blue ___ Other (describe below) Pastoral Care Referral From ___ Patient ___ Family _x__ Nurse ___ Physician ___ Mercantile Reporter ___ Devops Architect ___ Other (describe below) Sacrament/Intervention _x__ Active listening ___ Anointing ___ Pentecostalism _x__ Bereavement ___ Communion ___ Maxine exploration ___ ___ Life review ___ Prayer ___ Reconciliation ___ Sacrament of Sick _x__ Supportive presence ___ Wedding ___ Other (describe below) Pastoral Comments returned to ICU to discover that patient had just ; RN notified this museum informatics specialist of family members in the room; entered room to find four family members who were appropriately grieving the loss; family speak of how sudden the was, that Mom was with Dad now, and that they can find some comfort in that her suffering was brief and now over; offered time to listen, be present, given encouragement of family support and presence, and any learning of any ongoing concerns
--- NOTE | 2024-05-02 18:14 | NURSING ---
patient taken down to [facility]. family took all belongings
--- NOTE | 2024-05-02 18:45 | NURSING ---
[facility] called ok to realease body to home
--- NOTE | 2024-05-02 18:53 | NURSING ---
called home [facility]
[2024-05-05 11:08] LABS: Vitamin D 1,25-Dihydroxy 20.9 pg/mL (24.8-81.5)
== END 2024-05-02 18:02 | DRG 393 ==
LOC: ED 22:03 → MS3 22:32 → ICU 05-02 15:05
PROVIDERS: Admitting Provider Internal Medicine; Emergency Provider Emergency Medicine; PCP Internal Medicine; Visit Provider Internal Medicine
DX: K55.9 Vascular disorder of intestine, unspecified (principal); I21.3 ST elevation (STEMI) myocardial infarction of unspecified site; N17.9 Acute kidney failure, unspecified; E87.20 Acidosis, unspecified; Z51.5 Encounter for palliative care; Z66 Do not resuscitate; N18.32 Chronic kidney disease, stage 3b; D64.9 Anemia, unspecified; I12.9 Hypertensive chronic kidney disease with stage 1 through stage 4 chronic kidney disease, or unspecified chronic kidney disease; E03.9 Hypothyroidism, unspecified; I72.0 Aneurysm of carotid artery; I48.0 Paroxysmal atrial fibrillation; K56.41 Fecal impaction; I95.9 Hypotension, unspecified; K57.90 Diverticulosis of intestine, part unspecified, without perforation or abscess without bleeding; M19.90 Unspecified osteoarthritis, unspecified site; E87.5 Hyperkalemia; E87.8 Other disorders of electrolyte and fluid balance, not elsewhere classified; Z86.73 Personal history of transient ischemic attack (TIA), and cerebral infarction without residual deficits; Z68.26 Body mass index [BMI] 26.0-26.9, adult; Z80.0 Family history of malignant neoplasm of digestive organs; Z90.49 Acquired absence of other specified parts of digestive tract; E66.3 Overweight; Z85.51 Personal history of malignant neoplasm of bladder
CPT/HCPCS: 36415; 51702; 74019; 74177; 80048; 80053; 80076; 81001; 82652; 82962; 83605; 83690; 83735; 84100; 84443; 84484; 85025; 93005; 93308; 99285; J7030; J7040; Q9967; A4216; J2405